=== PATIENT | female | born 1930 | race Caucasian/White ===

== ENCOUNTER 2016-11-21 07:10 | Emergency (ER) | payer OTHER ==
[~2016-11-21] VITALS: Ht 166.4 cm; Wt 77.8 kg
[~2016-11-21 07:10] MED LIST: ALLO100T PO; ASPI1TAB83 PO; CALC-342 PO; CARV25TA2 PO; CHOL100027 PO; FURO-85 PO; LEVO75TA PO; OMEP20CA59 PO; OXYC5TAB PO; POTA20TA16 PO; SIMV20TA2 PO; WARF5TAB90 PO
[2016-11-21 07:18] VITALS: TEMP 36.8; O2SAT 96; Ht 166.4 cm; Wt 77.8 kg
[2016-11-21 07:35] LABS: BASO % 0.9 %; BASO ABS # 0.06 K/uL (0-0.2); COMPLETE YES; EOS % 2.5 %; HEMATOCRIT 36.5 % (37-47); IG% 0.3 %; LYMPH % 18.6 %; LYMPH ABS # 1.26 K/uL (1.2-3.4); MEAN CELL VOLUME 94.6 fL (80-100); MEAN CORPUSCULAR HEMOGLOBIN 31.6 pg (25-34); MEAN CORPUSCULAR HGB CONC 33.4 g/dl (32-36); MEAN PLATELET VOLUME 11.3 fL (7.4-10.4); MONO % 8.7 %; PLATELET COUNT 119 K/uL (130-400); RED BLOOD COUNT 3.86 M/uL (4.2-5.4); WHITE BLOOD COUNT 6.78 K/uL (4.8-10.8)
[2016-11-21] MEDS ORDERED: CARVEDILOL 12.5 MG TAB PO ONE (07:45)
[2016-11-21 07:51] LABS: INR 1.9 (0.9-1.1); PARTIAL THROMBOPLASTIN RATIO 1.2; PROTHROMBIN TIME (PATIENT) 21.2 SECONDS (9.0-12.0)
[2016-11-21 07:54] LABS: BLOOD UREA NITROGEN 26 mg/dl (7-18); BUN/CREATININE RATIO 17.4 (10-20); CALCIUM 8.3 mg/dl (8.5-10.1); CARBON DIOXIDE 28 mmol/L (21-32); CHLORIDE 108 mmol/L (98-107); GLUCOSE 100 mg/dl (70-99); POTASSIUM 4.2 mmol/L (3.5-5.1); SODIUM 140 mmol/L (136-145)
--- NOTE | 2016-11-21 07:56 | DIAGNOSTIC IMAGING REPORT ---
CHEST ONE VIEW PORTABLE CLINICAL HISTORY: Shortness of breath. COMPARISON STUDY: Chest radiograph July 22, 2014. FINDINGS: Lung volumes are normal. There is no pneumothorax or pleural effusion. Moderate cardiomegaly is unchanged. There is no evidence of pulmonary edema. There may be slight asymmetric right upper lung airspace opacity. IMPRESSION: 1. Slight asymmetric right upper lung opacity. This could reflect airspace disease or artifact. Follow-up PA and lateral chest radiographs in one month are recommended. 2. Moderate cardiomegaly. No evidence of pulmonary edema. Electronically signed by: Sam Mendoza M.D. 11/21/2016 7:54 AM Dictated Date/Time: 11/21/2016 7:52 AM
[2016-11-21] MEDS ORDERED: WARF2.5T8 PO (08:07)
[2016-11-21] MEDS ORDERED: SYN88 PO (08:07)
[2016-11-21] MEDS ORDERED: WARF5TAB7 PO (08:07)
[2016-11-21] MEDS ORDERED: FUROSEMIDE 40 MG/4 ML VIAL IV STA (08:42)
--- NOTE | 2016-11-21 08:44 | EMERGENCY ROOM VISIT NOTE ---
History Report prepared by Bebeto: Rosalind Batista Under the Supervision of: Dr. Jerry Baker M.D. First contact with patient: 07:13 Stated Complaint: SOB History of Present Illness The patient is an 86 year old female who presents to the Emergency Room with complaints of worsening shortness of breath starting early this morning. The patient states that she has been short of breath for a few months, but never anything like this. She states that she woke up this morning struggling to breathe. She notes she was lying flat, but always sleeps flat. The patient states that her symptoms are worse with exertion. The patient complains of heart palpitations. The patient denies chest pain, lightheadedness, leg swelling , fevers, loss of consciousness, recent falls, cough, and rhinorrhea. The patient notes that she is on Coumadin and has been taking Amoxicillin for a UTI. She states that she did not take her morning medications. The patient notes a history of atrial fibrillation and congestive heart failure. Source of History: patient Onset: early this morning Position: other (global) Quality: other (global) Timing: worsening Modifying Factors (Worsening): exertion Associated Symptoms: No LOC, No fevers, No cough, No chest pain Note: The patient complains of heart palpitations. The patient denies lightheadedness , leg swelling, recent falls, and rhinorrhea. Review of Systems See HPI for pertinent positives & negatives. A total of 10 systems reviewed and were otherwise negative. Past Medical & Surgical Medical Problems: (1) Afib (2) CHF (congestive heart failure) (3) Choledocholithiasis with acute cholecystitis with obstruction (4) Cholelithiasis Family History Diabetes mellitus Heart disease Hypertension Social History Smoking Status: Never Smoker Drug Use: none Marital Status: single Occupation Status: retired Current/Historical Medications Scheduled Allopurinol (Zyloprim), 100 MG PO BID Aspirin (Aspirin), 81 MG PO DAILY Calcium Carbonate-Vitamin D (Calcium 600+D), 1 TAB PO BID Carvedilol (Coreg), 25 MG PO BID Cholecalciferol (Vitamin D 1000 Unit), 1,000 INTER.UNIT PO DAILY Furosemide (Lasix), 1 TAB PO DAILY Levothyroxine Sodium (Synthroid), 88 MCG PO QAM Omeprazole (Prilosec), 20 MG PO DAILY Potassium Ext Rel (Klor-Con), 20 MEQ PO BID Simvastatin (Zocor), 20 MG PO QPM Warfarin Sod (Jantoven), 5 MG PO 5XWK Warfarin Sod (Jantoven), 2.5 MG PO 2XWK Allergies Coded Allergies: Naproxen (Verified Adverse Reaction, Intermediate, HYPERTENSION, 11/21/16) Ramipril (Verified Adverse Reaction, Intermediate, DIZZY, 11/21/16) Tizanidine (Verified Adverse Reaction, Intermediate, HIP PAIN, 11/21/16) Tramadol (Verified Adverse Reaction, Intermediate, "WOOZY", 11/21/16) Physical Exam Vital Signs Date Time Temp Pulse Resp B/P (MAP) Pulse Ox O2 Delivery O2 Flow Rate FiO2 11/21/16 08:59 66 20 156/88 95 11/21/16 08:32 68 20 147/89 95 Room Air 11/21/16 07:18 36.8 86 24 163/89 96 Room Air 11/21/16 07:18 96 Room Air 11/21/16 07:18 96 Room Air 11/21/16 07:16 79 Physical Exam GENERAL: Patient is well appearing and in no acute distress. HEENT: No acute trauma, normocephalic atraumatic, mucous membranes moist, no nasal congestion, no scleral icterus. NECK: No stridor, no adenopathy, no meningismus, trachea is midline. LUNGS: No dyspnea. Clear to auscultation and equal bilaterally. No wheeze, no rhonchi. HEART: Tachycardic rate and irregular rhythm. No murmurs, rubs, gallops appreciated. ABDOMEN: Soft, nontender, bowel sounds positive, no masses appreciated, no peritonitis. BACK: No midline tenderness, no CVA tenderness EXTREMITIES: Normal motion all extremities, no cyanosis, no edema. NEUROLOGIC: Alert and oriented, no acute motor or sensory deficits, no focal weakness, cranial nerves grossly intact. SKIN: No rash, no jaundice, no diaphoresis. Medical Decision & Procedures ER Provider Diagnostic Interpretation: Radiology results and stated below per my review and radiologist interpretation: CHEST ONE VIEW PORTABLE CLINICAL HISTORY: Shortness of breath. COMPARISON STUDY: Chest radiograph July 22, 2014. FINDINGS: Lung volumes are normal. There is no pneumothorax or pleural effusion. Moderate cardiomegaly is unchanged. There is no evidence of pulmonary edema. There may be slight asymmetric right upper lung airspace opacity. IMPRESSION: 1. Slight asymmetric right upper lung opacity. This could reflect airspace disease or artifact. Follow-up PA and lateral chest radiographs in one month are recommended. 2. Moderate cardiomegaly. No evidence of pulmonary edema. Electronically signed by: Sam Mendoza M.D. 11/21/2016 7:54 AM Dictated Date/Time: 11/21/2016 7:52 AM Laboratory Results 11/21/16 06:36 Red Blood Count 3.86, Mean Corpuscular Volume 94.6, Mean Corpuscular Hemoglobin 31.6, Mean Corpuscular Hemoglobin Concent 33.4, Mean Platelet Volume 11.3, Neutrophils (%) (Auto) 69.0, Lymphocytes (%) (Auto) 18.6, Monocytes (%) (Auto) 8.7, Eosinophils (%) (Auto) 2.5, Basophils (%) (Auto) 0.9, Neutrophils # (Auto) 4.68, Lymphocytes # (Auto) 1.26, Monocytes # (Auto) 0.59, Eosinophils # (Auto) 0.17, Basophils # (Auto) 0.06 11/21/16 06:36 Test 11/21/16 06:36 White Blood Count 6.78 K/uL (4.8-10.8) Red Blood Count 3.86 M/uL (4.2-5.4) Hemoglobin 12.2 g/dL (12.0-16.0) Hematocrit 36.5 % (37-47) Mean Corpuscular Volume 94.6 fL (80-100) Mean Corpuscular Hemoglobin 31.6 pg (25-34) Mean Corpuscular Hemoglobin Concent 33.4 g/dl (32-36) Platelet Count 119 K/uL (130-400) Mean Platelet Volume 11.3 fL (7.4-10.4) Neutrophils (%) (Auto) 69.0 % Lymphocytes (%) (Auto) 18.6 % Monocytes (%) (Auto) 8.7 % Eosinophils (%) (Auto) 2.5 % Basophils (%) (Auto) 0.9 % Neutrophils # (Auto) 4.68 K/uL (1.4-6.5) Lymphocytes # (Auto) 1.26 K/uL (1.2-3.4) Monocytes # (Auto) 0.59 K/uL (0.11-0.59) Eosinophils # (Auto) 0.17 K/uL (0-0.5) Basophils # (Auto) 0.06 K/uL (0-0.2) RDW Standard Deviation 50.7 fL (36.4-46.3) RDW Coefficient of Variation 15.0 % (11.5-14.5) Immature Granulocyte % (Auto) 0.3 % Immature Granulocyte # (Auto) 0.02 K/uL (0.00-0.02) Prothrombin Time 21.2 SECONDS (9.0-12.0) Prothromb Time International Ratio 1.9 (0.9-1.1) Activated Partial Thromboplast Time 30.6 SECONDS (21.0-31.0) Partial Thromboplastin Ratio 1.2 Anion Gap 4.0 mmol/L (3-11) Est Creatinine Clear Calc Drug Dose 29.1 ml/min Estimated GFR () 36.7 Estimated GFR (Non- 31.7 BUN/Creatinine Ratio 17.4 (10-20) Calcium Level 8.3 mg/dl (8.5-10.1) Troponin I < 0.015 ng/ml (0-0.045) Pro-B-Type Natriuretic Peptide 4958 pg/ml (0-1800) Laboratory results as reviewed by me. Medications Administered Medications (Trade) Dose Ordered Sig/Mis Route Start Time Stop Time Status Last Admin Dose Admin Carvedilol (Coreg Tab) 25 mg NOW ONCE PO 11/21/16 07:45 11/21/16 07:46 DC 11/21/16 07:49 25 MG Furosemide (Lasix Inj) 40 mg NOW STAT IV 11/21/16 08:42 11/21/16 08:43 DC 11/21/16 08:48 40 MG ECG Indication: SOB/dyspnea Rate (beats per minute): 80 Rhythm: atrial fibrillation Findings: no acute ischemic change, other (acute TC at 435) Comparison ECG Date: 10/24/2015 Change: no significant change ED Course 0732: The patient was evaluated in room B6. A complete history and physical exam was performed. 0745: Ordered Carvedilol 25 mg PO. 0827: I discussed the patient's case with Dr. Mejia-Cardiology. He agrees with IV Lasix now and having her take 40 PO Lasix tomorrow. He states that Tuesday she should call the clinic to have an appointment. 35: Reevaluated the patient and she is doing well. Her heart rate is in the 70s. Discussed results and discharge instructions: she verbalized understanding and agreement. The patient is ready for discharge. 0842: Ordered Lasix Inj 40 mg IV. Medical Decision Differential: Infectious, Reactive Airway Disease, Pneumonia, Pneumothorax, COPD , CHF, ACS, Pulmonary Embolism, MSK, GI, Dissection, amongst other etiologies entertained. 86 yr old female arrives short of breath mostly on exertion. Mildly tachycardic after exertion which improved and she was given her daily dose b- josy which kept HR under control. She is in CHF though not hypoxic. INR 1.9 and no history of PE, just on this for afib. I do not feel that CT PE indicated. BNP significantly elevated. She is comfortable, just a bit exertional dyspnea. She very much prefers outpatient treatment. Discussed with her instrument technician who notes 40mg IV lasix, PO 40mg daily x 2 days, followed by normal dosing and see Cards this week. Reviewed symptoms requiring return. Already on potassium thus will hold off on adding/increasing. She is stable, comfortable and in no distress sitting bed. No evidence ACS, denies CP, and EKG similar along with Trop negative which after prolonged symptoms not consistent with ACS. Medication Reconcilliation Current Medication List: was personally reviewed by me Blood Pressure Screening Patient's blood pressure: Elevated blood pressure Blood pressure disposition: Elevated BP felt to be situational Will follow up with cardiology this week. Consults Time Called: [phone] Consulting Physician: Dr. Mejia-Cardiology Returned Call: [phone] I discussed the patient's case with Dr. Mejia-Cardiology. He agrees with IV Lasix now and having her take 40 PO Lasix tomorrow. He states that Tuesday she should call the clinic to have an appointment. Impression Primary Impression: Congestive heart failure Scribe Attestation The scribe's documentation has been prepared under my direction and personally reviewed by me in its entirety. I confirm that the note above accurately reflects all work, treatment, procedures, and medical decision making performed by me. Departure Information Dispostion Home / Self-Care Referrals Mariel Gonzales M.D. (PCP) [place], Davey L., D.O. Forms HOME CARE DOCUMENTATION FORM, IMPORTANT VISIT INFORMATION Additional Instructions Increase your Lasix dose to 40 mg daily for Tuesday and Tuesday. Call your Business [employer]st [employer] on Tuesday to make a follow up appointment. Return if worsening breathing, chest pain, passing out, fevers, or other concerns. Rest and avoid excessive fluid intake. We are always here to help if worsening symptoms.
[2016-11-21 08:59] VITALS: BP 156/88; PULSE 66; O2SAT 95
[2016-12-03] MEDS ORDERED: CRG125 PO (14:16)
[2016-12-03] MEDS ORDERED: CEPH500C2 PO (14:16)
== END 2016-11-21 08:59 | disposition home or self-care (01) ==
LOC: EDBD 07:10 → C.EDB 07:12
DX: I50.9 Heart failure, unspecified (principal); Z79.01 Long term (current) use of anticoagulants; N39.0 Urinary tract infection, site not specified; I48.91 Unspecified atrial fibrillation; Z83.3 Family history of diabetes mellitus; Z82.49 Family history of ischemic heart disease and other diseases of the circulatory system; Z79.82 Long term (current) use of aspirin; Z79.899 Other long term (current) drug therapy

== ENCOUNTER 2016-11-30 07:44 | Inpatient (IN) | payer OTHER ==
[~2016-11-30] VITALS: Ht 165.1 cm; Wt 73.7 kg
[~2016-11-30 07:44] MED LIST changes: -LEVO75TA PO; -OXYC5TAB PO; +SYN88 PO; +WARF2.5T8 PO; +WARF5TAB7 PO; -WARF5TAB90 PO
[2016-11-30] MEDS ORDERED: ALBUT/IPRATROP 3MG/0.5MG NEB 3 ML VIAL INH STA (08:21)
--- NOTE | 2016-11-30 08:35 | EMERGENCY ROOM VISIT NOTE ---
History Report prepared by Bebeto: Chelo Benavidez Under the Supervision of: Dr. Kelly Mata M.D. First contact with patient: 07:52 Chief Complaint: RESPIRATORY PROBLEMS Stated Complaint: BREATHING DIFFICULTY Nursing Triage Summary: pt presents to room b12b via als from home. pt reports increased shortness of breath since yesterday. pt has productive cough. pt denies any pain. pt reports she was seen in ed for same last week. History of Present Illness The patient is an 86 year old female who presents to the Emergency Room with complaints of increased shortness of breath that began yesterday. The patient states that yesterday she developed a productive cough and increased shortness of breath. She denies wearing supplemental oxygen at home. The patient states that when she woke this morning she was feeling dizzy and woozy. She states that last week she was evaluated in the emergency department for similar symptoms that she is experiencing today. The patient states that her symptoms feel similar to her congestive heart failure. She denies any chest pain. Source of History: patient Onset: yesterday Position: other (global) Quality: other (shortness of breath) Timing: other (increased) Associated Symptoms: + cough (productive), No chest pain Note: Associated Symptoms: dizzy and woozy Review of Systems See HPI for pertinent positives & negatives. A total of 10 systems reviewed and were otherwise negative. Past Medical & Surgical Medical Problems: (1) Afib (2) CKD (chronic kidney disease), stage III (3) Diastolic CHF, chronic (4) HTN (hypertension) (5) Lumbar disc disease (6) Osteoarthritis Family History Diabetes mellitus Heart disease Hypertension Social History Smoking Status: Never Smoker Drug Use: none Marital Status: single Housing Status: lives with family Occupation Status: retired Current/Historical Medications Scheduled Allopurinol (Zyloprim), 100 MG PO BID Aspirin (Aspirin), 81 MG PO DAILY Calcium Carbonate-Vitamin D (Calcium 600+D), 1 TAB PO BID Carvedilol (Coreg), 25 MG PO BID Cholecalciferol (Vitamin D 1000 Unit), 1,000 INTER.UNIT PO DAILY Furosemide (Lasix), 1 TAB PO DAILY Isosorbide Mononitrate (Isosorbide Mononitrate ER), 30 MG PO DAILY Levothyroxine Sodium (Synthroid), 88 MCG PO QAM Omeprazole (Prilosec), 20 MG PO DAILY Potassium Ext Rel (Klor-Con), 20 MEQ PO BID Simvastatin (Zocor), 20 MG PO QPM Warfarin Sod (Jantoven), 0 PO UD Allergies Coded Allergies: Naproxen (Verified Adverse Reaction, Intermediate, HYPERTENSION, 11/30/16) Ramipril (Verified Adverse Reaction, Intermediate, DIZZY, 11/30/16) Tizanidine (Verified Adverse Reaction, Intermediate, HIP PAIN, 11/30/16) Tramadol (Verified Adverse Reaction, Intermediate, "WOOZY", 11/30/16) Physical Exam Vital Signs Date Time Temp Pulse Resp B/P (MAP) Pulse Ox O2 Delivery O2 Flow Rate FiO2 11/30/16 11:30 98 22 139/76 96 Room Air 11/30/16 09:39 71 22 131/97 96 Nasal Cannula 2.0 11/30/16 08:10 93 Nasal Cannula 2.0 11/30/16 08:10 81 20 139/72 87 Room Air 11/30/16 08:08 74 11/30/16 08:05 91 Room Air 11/30/16 07:49 37.5 95 20 162/75 92 Room Air 11/30/16 07:49 92 Room Air Physical Exam Vital signs reviewed. General: Elderly. Well-appearing female, in no significant distress. On nasal cannula oxygen. HEENT: No scleral icterus, PERRLA, neck supple. Atraumatic. Cardiovascular: Regular rate and rhythm, no extra sounds. Pulmonary: Coarse breath sounds bilaterally, normal work of breathing. Abdomen: Soft, nontender, nondistended, positive bowel sounds. Musculoskeletal: Atraumatic, no peripheral edema. Neurologic: Patient awake alert and oriented x 3 Skin: Warm, dry, no rash Medical Decision & Procedures ER Provider Diagnostic Interpretation: X-ray results as stated below per interpretation by me and the radiologist: CHEST ONE VIEW PORTABLE CLINICAL HISTORY: SOB, fever, cough COMPARISON STUDY: 11/21/2016 FINDINGS: Fixed hernia. Lungs now considered clear. Diaphragms smooth. IMPRESSION: Fixed hiatal hernia. Mild cardia megaly. Otherwise negative study The above report was generated using voice recognition software. It may contain grammatical, syntax or spelling errors. Electronically signed by: Alen Mar M.D. 11/30/2016 8:52 AM Dictated Date/Time: 11/30/2016 8:51 AM Laboratory Results Test 11/30/16 07:57 11/30/16 08:34 11/30/16 08:40 Urine Color YELLOW Urine Appearance CLEAR (CLEAR) Urine pH 5.5 (4.5-7.5) Urine Specific [place] 1.012 (1.000-1.030) Urine Protein NEG (NEG) Urine Glucose (UA) NEG (NEG) Urine Ketones NEG (NEG) Urine Occult Blood TRACE (NEG) Urine Nitrite NEG (NEG) Urine Bilirubin NEG (NEG) Urine Urobilinogen NEG (NEG) Urine Leukocyte Esterase NEG (NEG) Urine WBC (Auto) 1-5 /hpf (0-5) Urine RBC (Auto) 0-4 /hpf (0-4) Urine Hyaline Casts (Auto) 0 /lpf (0-5) Urine Epithelial Cells (Auto) 5-10 /lpf (0-5) Urine Bacteria (Auto) 4+ (NEG) Immature Granulocyte % (Auto) 0.3 % White Blood Count 9.56 K/uL (4.8-10.8) Red Blood Count 3.78 M/uL (4.2-5.4) Hemoglobin 11.7 g/dL (12.0-16.0) Hematocrit 35.8 % (37-47) Mean Corpuscular Volume 94.7 fL (80-100) Mean Corpuscular Hemoglobin 31.0 pg (25-34) Mean Corpuscular Hemoglobin Concent 32.7 g/dl (32-36) Platelet Count 121 K/uL (130-400) Mean Platelet Volume 10.9 fL (7.4-10.4) Neutrophils (%) (Auto) 84.2 % Lymphocytes (%) (Auto) 6.2 % Monocytes (%) (Auto) 8.5 % Eosinophils (%) (Auto) 0.5 % Basophils (%) (Auto) 0.3 % Neutrophils # (Auto) 8.05 K/uL (1.4-6.5) Lymphocytes # (Auto) 0.59 K/uL (1.2-3.4) Monocytes # (Auto) 0.81 K/uL (0.11-0.59) Eosinophils # (Auto) 0.05 K/uL (0-0.5) Basophils # (Auto) 0.03 K/uL (0-0.2) Immature Granulocyte # (Auto) 0.03 K/uL (0.00-0.02) Activated Partial Thromboplast Time 31.4 SECONDS (21.0-31.0) Partial Thromboplastin Ratio 1.2 Total Bilirubin 1.9 mg/dl (0.2-1) Direct Bilirubin 0.5 mg/dl (0-0.2) Aspartate Amino Transf (AST/SGOT) 31 U/L (15-37) Alanine Aminotransferase (ALT/SGPT) 23 U/L (12-78) Alkaline Phosphatase 67 U/L (45-117) Total Creatine Kinase 129 U/L (26-192) Creatine Kinase MB 2.2 ng/ml (0.5-3.6) Creatine Kinase MB Ratio 1.7 (0-3.0) Pro-B-Type Natriuretic Peptide 8851 pg/ml (0-1800) Total Protein 6.7 gm/dl (6.4-8.2) Albumin 3.2 gm/dl (3.4-5.0) Bedside Troponin I < 0.030 ng/ml (0-0.045) Laboratory results per my review. Medications Administered Medications (Trade) Dose Ordered Sig/Mis Route Start Time Stop Time Status Last Admin Dose Admin Albuterol/ Ipratropium (Duoneb) 3 ml NOW STAT INH 11/30/16 08:21 11/30/16 08:22 DC 11/30/16 08:28 3 ML Furosemide (Lasix Inj) 40 mg NOW STAT IV 11/30/16 09:27 11/30/16 09:28 DC 11/30/16 09:40 40 MG Ceftriaxone Sodium (Rocephin Inj) 1 gm NOW STAT IV 11/30/16 09:58 11/30/16 10:00 DC 11/30/16 10:18 1 GM ECG Indication: SOB/dyspnea Rate (beats per minute): 93 Rhythm: atrial fibrillation Findings: no acute ischemic change, no ectopy, other (poor quality baseline for interpretation) ED Course 0817: Past medical records reviewed. The patient was evaluated in room B12B. A complete history and physical examination was performed. 0821: Ordered DuoNeb 3 ml INH. 0927: Ordered Lasix Inj 40 mg IV. 0958: Ordered Rocephin Inj 1 gm IV. 1003: I reevaluated the patient and she is resting. I discussed the exam findings with her and her family and I discussed the treatment plan. They verbalized complete understanding and agreement. The patient will be evaluated for further treatment. 7105: I discussed the patients case with Sadiq Bautista PA-C. She is going to evaluate the patient for further treatment. Medical Decision Differential diagnosis: Etiologies such as infections, reactive airway disease, pneumonia, pneumothorax , COPD, CHF, cardiac ischemia, pulmonary embolism, musculoskeletal, gastrointestinal, as well as others were entertained. This pt was evaluated and appeared to be in no distress. IV access was obtained and lab work was drawn. Pt was placed on n/c O2. She is hypoxic on r/ a. CXR is relatively clear, BNP is elevated to 8851. Pt had a temp of 37.5 on arrival, BC were drawn and pt was given ceftriaxone 1gm for possibility of PNA. Lab work otherwise is unrevealing, neg cardiac enzymes. EKG is non ischemic, rate controlled a fib. Pt was diuresing in ED. Case was d/w the hospitalist service for further management. Medication Reconcilliation Current Medication List: was personally reviewed by me Blood Pressure Screening Patient's blood pressure: Elevated blood pressure Blood pressure disposition: Referred to PCP (referred to hospitalist) Consults Time Called: [phone] Consulting Physician: Sadiq Bautista PA-C Returned Call: [phone] I discussed the patients case with Sadiq Bautista PA-C. She is going to evaluate the patient for further treatment. Impression Primary Impression: Congestive heart failure Scribe Attestation The scribe's documentation has been prepared under my direction and personally reviewed by me in its entirety. I confirm that the note above accurately reflects all work, treatment, procedures, and medical decision making performed by me. Departure Information Dispostion Being Evaluated By Hospitalist Referrals Mariel Gonzales M.D. (PCP)
[2016-11-30 08:40] LABS: URINE APPEARANCE CLEAR (CLEAR); URINE BILIRUBIN NEG (NEG); URINE COLOR YELLOW; URINE NITRITE NEG (NEG); URINE PH 5.5 (4.5-7.5); URINE SPECIFIC GRAVITY 1.012 (1.000-1.030); UROBILINOGEN NEG (NEG); ZZUR CULT IF INDIC CLEAN CATCH YES
[2016-11-30 08:41] LABS: MANUAL MICROSCOPIC REQUIRED? NO; REVIEW REQ? NO
[2016-11-30 08:51] LABS: BASO % 0.3 %; BASO ABS # 0.03 K/uL (0-0.2); COMPLETE YES; EOS % 0.5 %; HEMATOCRIT 35.8 % (37-47); IG% 0.3 %; LYMPH % 6.2 %; LYMPH ABS # 0.59 K/uL (1.2-3.4); MEAN CELL VOLUME 94.7 fL (80-100); MEAN CORPUSCULAR HGB CONC 32.7 g/dl (32-36); MEAN PLATELET VOLUME 10.9 fL (7.4-10.4); MONO % 8.5 %; NEUT % 84.2 %; PLATELET COUNT 121 K/uL (130-400); RED BLOOD COUNT 3.78 M/uL (4.2-5.4); WHITE BLOOD COUNT 9.56 K/uL (4.8-10.8)
--- NOTE | 2016-11-30 08:53 | DIAGNOSTIC IMAGING REPORT ---
CHEST ONE VIEW PORTABLE CLINICAL HISTORY: SOB, fever, cough COMPARISON STUDY: 11/21/2016 FINDINGS: Fixed hernia. Lungs now considered clear. Diaphragms smooth. IMPRESSION: Fixed hiatal hernia. Mild cardia megaly. Otherwise negative study The above report was generated using voice recognition software. It may contain grammatical, syntax or spelling errors. Electronically signed by: Alen Mar M.D. 11/30/2016 8:52 AM Dictated Date/Time: 11/30/2016 8:51 AM
[2016-11-30 09:01] LABS: INR 2.2 (0.9-1.1); PARTIAL THROMBOPLASTIN RATIO 1.2; PROTHROMBIN TIME (PATIENT) 24.4 SECONDS (9.0-12.0)
[2016-11-30 09:09] LABS: BUN/CREATININE RATIO 20.3 (10-20); CALCIUM 8.5 mg/dl (8.5-10.1); CREATININE 1.3 mg/dl (0.60-1.20); MAGNESIUM 1.8 mg/dl (1.8-2.4); POTASSIUM 3.7 mmol/L (3.5-5.1)
[2016-11-30 09:14] LABS: CKMB/CK RATIO 1.7 (0-3.0)
[2016-11-30] MEDS ORDERED: FUROSEMIDE 40 MG/4 ML VIAL IV STA (09:27)
[2016-11-30] MEDS ORDERED: CEFTRIAXONE SOD INJ 1 GM ADDVIAL IV STA (09:58)
[2016-11-30] MEDS ORDERED: IV FLUIDS COMPLETED PRN (12:15)
[2016-11-30 12:22] VITALS: Ht 165.1 cm; Wt 73.7 kg
[2016-11-30] MEDS ORDERED: ACETAMINOPHEN 325 MG TAB PO PRN (12:30)
[2016-11-30] MEDS ORDERED: ONDANSETRON INJ 2 MG/ML 2 ML VIAL IV PRN (12:30)
[2016-11-30] MEDS ORDERED: WARFARIN SOD 5 MG TAB PO SCH (12:45)
[2016-11-30] MEDS ORDERED: WARFARIN SOD 2.5 MG TAB PO SCH (12:45)
--- NOTE | 2016-11-30 12:48 | History and Physical ---
History & Physical Date & Time of Service: Nov 30, 2016 at 12:36 Chief Complaint: Breathing Difficulty Primary Care Physician: Marika Thomas History of Present Illness Source: patient This is an 86yo F with a PMH of diastolic CHF, Atrial fibrillation (on coumadin) , HTN and CKD stage III who presents with worsening shortness of breath since yesterday. Patient was recently seen at [facility] ED on 11/21/16 for shortness of breath and was found to be in decompensated CHF. Was given IV Lasix and seen by cardio, who suggested increasing home dose of Lasix to 40mg x 2 days before returning to normal dose of 20mg. Patient states that SOB improved after making these adjustments but she did not return to baseline. She presents again today with SOB, experiencing dyspnea with any type of exertion, even using the restroom. At baseline, patient can ambulate around her home comfortably without SOB. Also states that she developed rhinorrhea and a cough with productive clear /white sputum yesterday. Does not require home O2. Endorses orthopnea but denies any fever, chills, nasal congestion, sore throat, chest pain, palpitations, abdominal pain, LE swelling or weight gain. Has a follow-up appointment with cardio (GIOVANNI Hoang) on 12/02/16. ED course included a dose of IV Lasix and ceftriaxone (for temp of 37.5 and cough). Past Medical/Surgical History Medical Problems: (1) Afib Status: Chronic (2) CKD (chronic kidney disease), stage III Status: Chronic (3) Diastolic CHF, chronic Status: Chronic (4) HTN (hypertension) Status: Chronic (5) Lumbar disc disease Status: Chronic (6) Osteoarthritis Status: Chronic Family History Diabetes mellitus Heart disease Hypertension Social History Smoking Status: Never Smoker Drug Use: none Marital Status: single Housing status: lives alone Occupational Status: retired Multi-Drug Resistant Organisms History of MDRO: No Allergies Coded Allergies: Naproxen (Verified Adverse Reaction, Intermediate, HYPERTENSION, 11/30/16) Ramipril (Verified Adverse Reaction, Intermediate, DIZZY, 11/30/16) Tizanidine (Verified Adverse Reaction, Intermediate, HIP PAIN, 11/30/16) Tramadol (Verified Adverse Reaction, Intermediate, "WOOZY", 11/30/16) Home Medications Scheduled Allopurinol (Zyloprim), 100 MG PO BID Aspirin (Aspirin), 81 MG PO DAILY Calcium Carbonate-Vitamin D (Calcium 600+D), 1 TAB PO BID Carvedilol (Coreg), 25 MG PO BID Cholecalciferol (Vitamin D 1000 Unit), 1,000 INTER.UNIT PO DAILY Furosemide (Lasix), 1 TAB PO DAILY Levothyroxine Sodium (Synthroid), 88 MCG PO QAM Omeprazole (Prilosec), 20 MG PO DAILY Potassium Ext Rel (Klor-Con), 20 MEQ PO BID Simvastatin (Zocor), 20 MG PO QPM Warfarin Sod (Jantoven), 5 MG PO 5XWK Warfarin Sod (Jantoven), 2.5 MG PO 2XWK Review of Systems Ten systems reviewed and negative except as noted in the HPI. Physical Exam Vital Signs Date Time Temp Pulse Resp B/P (MAP) Pulse Ox O2 Delivery O2 Flow Rate FiO2 11/30/16 12:22 Nasal Cannula 2.0 11/30/16 11:30 98 22 139/76 96 Room Air 11/30/16 09:39 71 22 131/97 96 Nasal Cannula 2.0 11/30/16 08:10 93 Nasal Cannula 2.0 11/30/16 08:10 81 20 139/72 87 Room Air 11/30/16 08:08 74 11/30/16 08:05 91 Room Air 11/30/16 07:49 37.5 95 20 162/75 92 Room Air 11/30/16 07:49 92 Room Air General Appearance: WD/WN, no apparent distress (Comfortable on exam with NC oxygen in place. ) Head: normocephalic, atraumatic Eyes: normal inspection, PERRL, sclerae normal ENT: hearing grossly normal Neck: supple, no adenopathy, no JVD, trachea midline Respiratory/Chest: chest non-tender, no respiratory distress, no accessory muscle use, + rhonchi (Cleared after coughing ), + wheezing (Mild inspiratory and expiratory wheezes noted throughout lung eli.) Cardiovascular: normal peripheral pulses, + irregularly irregular Abdomen/GI: normal bowel sounds, non tender, soft, no organomegaly Back: normal inspection Extremities/Musculoskelatal: normal inspection, no calf tenderness, normal capillary refill, no pedal edema Neurologic/Psych: no motor/sensory deficits, alert, normal mood/affect, oriented x 3 Skin: normal color, warm/dry, no rash Diagnostics Laboratory Results Results Past 24 Hours Test 11/30/16 07:57 11/30/16 08:34 11/30/16 08:40 Range/Units Urine Color YELLOW Urine Appearance CLEAR CLEAR Urine pH 5.5 4.5-7.5 Urine Specific [place] 1.012 1.000-1.030 Urine Protein NEG NEG Urine Glucose (UA) NEG NEG Urine Ketones NEG NEG Urine Occult Blood TRACE NEG Urine Nitrite NEG NEG Urine Bilirubin NEG NEG Urine Urobilinogen NEG NEG Urine Leukocyte Esterase NEG NEG Urine WBC (Auto) 1-5 0-5 /hpf Urine RBC (Auto) 0-4 0-4 /hpf Urine Hyaline Casts (Auto) 0 0-5 /lpf Urine Epithelial Cells (Auto) 5-10 0-5 /lpf Urine Bacteria (Auto) 4+ NEG White Blood Count 9.56 4.8-10.8 K/uL Red Blood Count 3.78 4.2-5.4 M/uL Hemoglobin 11.7 12.0-16.0 g/dL Hematocrit 35.8 37-47 % Mean Corpuscular Volume 94.7 80-100 fL Mean Corpuscular Hemoglobin 31.0 25-34 pg Mean Corpuscular Hemoglobin Concent 32.7 32-36 g/dl Platelet Count 121 130-400 K/uL Mean Platelet Volume 10.9 7.4-10.4 fL Neutrophils (%) (Auto) 84.2 % Lymphocytes (%) (Auto) 6.2 % Monocytes (%) (Auto) 8.5 % Eosinophils (%) (Auto) 0.5 % Basophils (%) (Auto) 0.3 % Neutrophils # (Auto) 8.05 1.4-6.5 K/uL Lymphocytes # (Auto) 0.59 1.2-3.4 K/uL Monocytes # (Auto) 0.81 0.11-0.59 K/uL Eosinophils # (Auto) 0.05 0-0.5 K/uL Basophils # (Auto) 0.03 0-0.2 K/uL RDW Standard Deviation 51.9 36.4-46.3 fL RDW Coefficient of Variation 15.1 11.5-14.5 % Immature Granulocyte % (Auto) 0.3 % Immature Granulocyte # (Auto) 0.03 0.00-0.02 K/uL Prothrombin Time 24.4 9.0-12.0 SECONDS Prothromb Time International Ratio 2.2 0.9-1.1 Activated Partial Thromboplast Time 31.4 21.0-31.0 SECONDS Partial Thromboplastin Ratio 1.2 Sodium Level 140 136-145 mmol/L Potassium Level 3.7 3.5-5.1 mmol/L Chloride Level 107 98-107 mmol/L Carbon Dioxide Level 26 21-32 mmol/L Anion Gap 7.0 3-11 mmol/L Blood Urea Nitrogen 26 7-18 mg/dl Creatinine 1.30 0.60-1.20 mg/dl Est Creatinine Clear Calc Drug Dose 34.2 ml/min Estimated GFR () 43.6 Estimated GFR (Non- 37.6 BUN/Creatinine Ratio 20.3 10-20 Random Glucose 121 70-99 mg/dl Calcium Level 8.5 8.5-10.1 mg/dl Magnesium Level 1.8 1.8-2.4 mg/dl Total Bilirubin 1.9 0.2-1 mg/dl Direct Bilirubin 0.5 0-0.2 mg/dl Aspartate Amino Transf (AST/SGOT) 31 15-37 U/L Alanine Aminotransferase (ALT/SGPT) 23 12-78 U/L Alkaline Phosphatase 67 45-117 U/L Total Creatine Kinase 129 26-192 U/L Creatine Kinase MB 2.2 0.5-3.6 ng/ml Creatine Kinase MB Ratio 1.7 0-3.0 Pro-B-Type Natriuretic Peptide 8851 0-1800 pg/ml Total Protein 6.7 6.4-8.2 gm/dl Albumin 3.2 3.4-5.0 gm/dl Bedside Troponin I < 0.030 0-0.045 ng/ml Microbiology Results 11/30/16 Blood Culture, Received Pending 11/30/16 Blood Culture, Received Pending 11/30/16 Urine Culture, Received Pending Diagnostic Radiology CXR: IMPRESSION: Fixed hiatal hernia. Mild cardia megaly. Otherwise negative study EKG Atrial fibrillation Nonspecific ST and T wave abnormality No change from prior EKG Impression Assessment and Plan This is an 86yo F with a PMH of diastolic CHF, Atrial fibrillation (on coumadin) , HTN and CKD stage III who presents with worsening shortness of breath since yesterday. Shortness of breath: -Most likely a mildly decompensated CHF -CXR with mild cardiomegaly but no pulm congestion -Considered PNA but no opacities on CXR, no leukocytosis, afebrile -Received a dose of ceftriaxone in ER -No indication to continue antibiotic on the floor -Recent rhinorrhea and cough may reflect a URI; monitor -O2 saturation in high 90s on 2L NC -Monitor vitals, CBC in AM Acute on chronic diastolic CHF: -SOB increased from baseline -Euvolemic to slightly overloaded on exam -Crackles bilaterally on exam initially; improved after IV Lasix -Weight increased ~5lbs since 11/21/16 visit to ER -BNP elevated to 8851 -Given 40mg IV Lasix in ER. Will give another dose this afternoon -Low Na diet, daily weights -Continue home meds -Recent echo in 04/06 with EF: 59. Mild concentric LVH -Will consider consulting cardio if no improvement -Has cardio clinic appt on 12/02 with GIOVANNI Hoang Atrial fibrillation (on coumadin): -Rate-controlled, HR 70s-90s -Asymptomatic although irregular rhythm on exam -Continue home dose warfarin -INR therapeutic at 2.2 -Monitor on tele HTN: -Stable -Continue home meds CKD Stage III: -Cr of 1.3, GFR 37.6 -Currently at baseline or slightly better -Avoid nephrotoxic agents when able -Monitor BMP DVT Ppx: On warfarin Code status: FULL PCP: William Dispo: Discharge planning ordered due to patient >80yo and lives alone Level of Care Telemetry Advanced Directives Existing Living Will: No Existing Power of Food Service Specialist: Yes Resuscitation Status FULL RESUSCITATION VTE Prophylaxis VTE Risk Assessment Done? Y/N: Yes Risk Level: High Given or contraindicated: Warfarin (Coumadin) Social Service Consult >80 yr.& Lives Alone Note ATTENDING ADDENDUM Record reviewed. Patient interviewed and examined in ED ~ 13:10. Care coordinated with Sweetie Beth PA-C. Please refer to her documentation for patient's history. Briefly, 86 YO female w history of diastolic CHF, chronic AF, and other problems as noted. Presented to ED with a few days of worsening dyspnea on exertion and 2-pillow orthopnea. Wt up 1-2 lbs. Has cough productive of clear sputum; no fever, chills. EXAM: General- no acute distress VS- as noted HEENT- anicteric Neck- + JVD Lungs- bibasilar rales, mild wheezing Heart- irregular, I/ systolic murmur at base, no gallop appreciated Abdomen- + BS, soft, nontender; no palpable masses or hepatosplenomegaly Extremities- trace pretibial edema, no calf tenderness Neuro- alert, oriented. DATA: BUN 26, creatinine 1.3, Total bili 1.9, direct bili 0.5, AST, ALT, alk phos normal. BNP 8851. Trop < 0.030. INR 2.2. Other lab studies as noted. EKG performed at 07:54 reviewed and demonstrated AF at 90 / minute, baseline artifact, ST depression I, II, aVL, aVF, ? V6. Chest x-ray reviewed- cardiomegaly; no pulmonary edema, infiltrates, effusions. ASSESSMENT AND PLAN: History of diastolic CHF. Worsening dyspnea over past few days. O2 sats as low as 87% on RA in ED. No overt pulmonary edema radiographically, but exam and BNP consistent with CHF. Probable acute on chronic left ventricular diastolic heart failure. Echo 04/09/16 demonstrated normal LV systolic function, grade II diastolic dysfunction, mild MR, mild TR. No need to repeat echo at this time. Received IV furosemide in ED. Will repeat dose this afternoon, then await morning reassessment and labs. Need to watch renal function closely due to CKD. Coordinate care with Cardiology. Doubt PE- patient chronically anticoagulated with therapeutic INR. Has mild cough. No infiltrates on CXR. Suspect viral bronchitis. No indication for antibiotics at this time. Reassess as needed if cough persists or worsens. Chronic AF, rate controlled. Continue carvedilol and warfarin. Please refer to TAWANNA Beth's documentation for discussion of other issues. Fede Dunn MD .
[2016-11-30] MEDS ORDERED: ISOS-11 PO (14:16)
[2016-11-30 14:42] VITALS: BP 128/84; PULSE 78; TEMP 36.4; O2SAT 95
[2016-11-30] MEDS ORDERED: FUROSEMIDE INJ 40 MG in SYRINGE 0 ML IV ONE (15:00)
[2016-11-30] MEDS: WARFARIN SOD 5 MG TAB PO SCH (15:28)
[2016-11-30 16:06] VITALS: O2SAT 95
[2016-11-30 19:33] VITALS: BP 134/81; PULSE 82; TEMP 36.7; O2SAT 97
[2016-11-30 20:00] VITALS: O2SAT 97
[2016-11-30] MEDS: CARVEDILOL 25 MG TAB PO SCH (20:30)
[2016-11-30] MEDS: CALCIUM 600MG + VIT D 400 IU TAB PO SCH (20:30)
[2016-11-30] MEDS: ALLOPURINOL 100 MG TAB PO SCH (20:30)
[2016-11-30] MEDS: POTASSIUM CHLORIDE 20 MEQ TABCR PO SCH (20:30)
[2016-11-30] MEDS: SIMVASTATIN 20 MG TAB PO SCH (20:30)
[2016-11-30 23:13] VITALS: BP 132/77; PULSE 69; TEMP 36.9; O2SAT 96
[2016-12-01] VITALS (11 sets, daily range): BP systolic 117–155; BP diastolic 70–93; PULSE 62–94; TEMP 36.3–36.7; O2SAT 88–97
[2016-12-01] MEDS: LEVOTHYROXINE 88 MCG TAB PO SCH (06:12)
[2016-12-01 06:38] LABS: HEMATOCRIT 39.3 % (37-47); MEAN CELL VOLUME 97.3 fL (80-100); MEAN CORPUSCULAR HEMOGLOBIN 30.9 pg (25-34); MEAN CORPUSCULAR HGB CONC 31.8 g/dl (32-36); MEAN PLATELET VOLUME 10.7 fL (7.4-10.4); PLATELET COUNT 123 K/uL (130-400); RED BLOOD COUNT 4.04 M/uL (4.2-5.4); WHITE BLOOD COUNT 7.51 K/uL (4.8-10.8)
[2016-12-01 06:45] LABS: INR 2.3 (0.9-1.1); PROTHROMBIN TIME (PATIENT) 25.8 SECONDS (9.0-12.0)
[2016-12-01 07:08] LABS: BUN/CREATININE RATIO 16.8 (10-20); CREATININE 1.3 mg/dl (0.60-1.20); POTASSIUM 3.3 mmol/L (3.5-5.1)
[2016-12-01] MEDS: ALLOPURINOL 100 MG TAB PO SCH ×2 (08:14→20:40)
[2016-12-01] MEDS: ISOSORBIDE MONONITRATE 30 MG TABCR PO SCH (08:14)
[2016-12-01] MEDS: CARVEDILOL 25 MG TAB PO SCH ×2 (08:14→20:39)
[2016-12-01] MEDS: PANTOprazole SOD 40 MG TAB PO SCH (08:14)
[2016-12-01] MEDS: ASPIRIN 81 MG ECTAB PO SCH (08:14)
[2016-12-01] MEDS: CHOLECALCIFEROL 1000 INTER.UNIT TAB PO SCH (08:14)
[2016-12-01] MEDS: POTASSIUM CHLORIDE 20 MEQ TABCR PO SCH ×2 (08:14→20:39)
[2016-12-01] MEDS: CALCIUM 600MG + VIT D 400 IU TAB PO SCH ×2 (08:14→20:39)
[2016-12-01] MEDS ORDERED: POTASSIUM CHLORIDE 10 MEQ TABCR PO ONE (10:30)
[2016-12-01] MEDS: CEFTRIAXONE SOD INJ 1,000 MG in DEXTROSE 5% 50ML 50 ML IV SCH (11:02)
[2016-12-01] MEDS: WARFARIN SOD 5 MG TAB PO SCH (15:26)
--- NOTE | 2016-12-01 15:52 | Progress Note ---
Internal Med Progress Note Date of Service: Dec 01, 2016. Provider Documentation: SUBJECTIVE: The patient was seen and examined Admitted with SOB secondary to CHF Feels a little better OBJECTIVE: Vital Signs-as noted below Exam: General-Moderate distress at rest Eyes-normal ENT-Normal Neck-Suppple Lungs-Decreased breath sound bilaterally and crackles at the bases Heart-Regular Abdomen-Benign,no masses,bowel sound present Extremities-1 + edema bilaterally Neuro-AAOx3 Lab data as noted below. ASSESSMENT & PLAN: This is an 86yo F with a PMH of diastolic CHF, Atrial fibrillation (on coumadin) , HTN and CKD stage III who presents with worsening shortness of breath since yesterday. Acute Decompensated Diastolic CHF Shortness of breath -Weight increased ~5lbs since 11/21/16 visit to ER -BNP elevated to 8851 -CXR with mild cardiomegaly but no pulm congestion -Received a dose of ceftriaxone in ER for possible Pneumonia -O2 saturation in high 90s on 2L NC -Monitor vitals, CBC in AM -received Lasix in ER and will continue -Will consider consulting cardio if no improvement -Has cardio clinic appt on 12/02 with GIOVANNI Hoang -Cancelled UTI Continue Ceftriaxone Await C/S Atrial fibrillation (on coumadin): -Rate-controlled, HR 70s-90s -Asymptomatic although irregular rhythm on exam -Continue home dose warfarin -INR therapeutic at 2.2 -Monitor on tele HTN: -Stable -Continue home meds CKD Stage III: -Cr of 1.3, GFR 37.6 -Currently at baseline or slightly better -Avoid nephrotoxic agents when able -Monitor BMP DVT Ppx: On warfarin Code status: FULL PCP: William Dispo: Discharge planning ordered due to patient >80yo and lives alone Vital Signs: Date Time Temp Pulse Resp B/P (MAP) Pulse Ox O2 Delivery O2 Flow Rate FiO2 12/01/16 15:14 36.6 92 16 117/71 (86) 93 Nasal Cannula 1.0 12/01/16 12:00 Nasal Cannula 2.0 12/01/16 11:30 36.6 85 18 123/70 (87) 95 Nasal Cannula 2.0 12/01/16 08:00 Nasal Cannula 3.0 12/01/16 07:36 36.7 62 18 143/80 (101) 94 Room Air 12/01/16 04:01 36.6 81 18 140/81 (100) 95 3.0 12/01/16 04:00 97 Nasal Cannula 3.0 12/01/16 00:00 97 Nasal Cannula 3.0 11/30/16 23:13 36.9 69 22 132/77 (95) 96 Nasal Cannula 3.0 11/30/16 20:00 97 Nasal Cannula 3.0 11/30/16 19:33 36.7 82 20 134/81 (98) 97 Nasal Cannula 3.0 11/30/16 16:06 95 Nasal Cannula 2.0 Lab Results: Results Past 24 Hours Test 12/01/16 06:16 Range/Units White Blood Count 7.51 4.8-10.8 K/uL Red Blood Count 4.04 4.2-5.4 M/uL Hemoglobin 12.5 12.0-16.0 g/dL Hematocrit 39.3 37-47 % Mean Corpuscular Volume 97.3 80-100 fL Mean Corpuscular Hemoglobin 30.9 25-34 pg Mean Corpuscular Hemoglobin Concent 31.8 32-36 g/dl RDW Standard Deviation 52.9 36.4-46.3 fL RDW Coefficient of Variation 15.0 11.5-14.5 % Platelet Count 123 130-400 K/uL Mean Platelet Volume 10.7 7.4-10.4 fL Prothrombin Time 25.8 9.0-12.0 SECONDS Prothromb Time International Ratio 2.3 0.9-1.1 Sodium Level 141 136-145 mmol/L Potassium Level 3.3 3.5-5.1 mmol/L Chloride Level 101 98-107 mmol/L Carbon Dioxide Level 35 21-32 mmol/L Anion Gap 5.0 3-11 mmol/L Blood Urea Nitrogen 22 7-18 mg/dl Creatinine 1.30 0.60-1.20 mg/dl Est Creatinine Clear Calc Drug Dose 32.3 ml/min Estimated GFR () 43.6 Estimated GFR (Non- 37.6 BUN/Creatinine Ratio 16.8 10-20 Random Glucose 103 70-99 mg/dl Calcium Level 9.0 8.5-10.1 mg/dl
[2016-12-01] MEDS ORDERED: LEVALBUTEROL/IPRATROPIUM NEB INH STA (19:46)
[2016-12-01] MEDS ORDERED: LEVALBUTEROL 1.25MG/0.5ML NEB INH STA (19:50)
[2016-12-01] MEDS ORDERED: IPRATROPIUM BROMIDE NEB SOLN 0.02% 2.5 ML VIAL INH STA (19:50)
[2016-12-01] MEDS ORDERED: LEVALBUTEROL/IPRATROPIUM NEB INH PRN (20:00)
[2016-12-01] MEDS ORDERED: IPRATROPIUM BROMIDE NEB SOLN 0.02% 2.5 ML VIAL INH PRN (20:00)
[2016-12-01] MEDS ORDERED: GUAIFENESIN SUGAR FREE 100 MG/5 ML UDC PO PRN (20:00)
[2016-12-01] MEDS ORDERED: COUGH DROP (SUGAR FREE) LOZ 24 LOZ/1 BOX PO PRN (20:00)
[2016-12-01] MEDS ORDERED: LEVALBUTEROL 1.25MG/0.5ML NEB INH PRN (20:00)
--- NOTE | 2016-12-01 20:15 | DIAGNOSTIC IMAGING REPORT ---
CHEST ONE VIEW PORTABLE CLINICAL HISTORY: coarse Bs dyspnea COMPARISON STUDY: 11/30/2016 FINDINGS: Moderate stable cardiomegaly. Lungs are clear. Diaphragms are smooth. Small fixed hiatal hernia IMPRESSION: Moderate stable cardiomegaly. Otherwise negative study small fixed hiatal hernia The above report was generated using voice recognition software. It may contain grammatical, syntax or spelling errors. Electronically signed by: Alen Mar M.D. 12/01/2016 8:14 PM Dictated Date/Time: 12/01/2016 8:13 PM
[2016-12-01 20:24] LABS: ARTERIAL BLD GAS O2 SATURATION 96.8 % (90-95); ARTERIAL BLOOD GAS BASE EXCESS 5.5 mEq/L (-9-1.8); ARTERIAL BLOOD GAS HCO3 30 mmol/L (19-24); ARTERIAL BLOOD GAS PO2 87 mm/Hg (80-95); ARTERIAL BLOOD GAS pH 7.45 (7.35-7.45)
[2016-12-01 20:25] LABS: ALLEN TEST POS (POS); O2 ADMINISTRATION 2 LITERS
[2016-12-01] MEDS: SIMVASTATIN 20 MG TAB PO SCH (20:40)
[2016-12-01 21:15] LABS: BUN/CREATININE RATIO 20.1 (10-20); CALCIUM 8.6 mg/dl (8.5-10.1); CREATININE 1.4 mg/dl (0.60-1.20); MAGNESIUM 2.1 mg/dl (1.8-2.4); POTASSIUM 4.4 mmol/L (3.5-5.1)
[2016-12-02] VITALS (15 sets, daily range): BP systolic 109–159; BP diastolic 65–90; PULSE 55–103; TEMP 36.2–36.7; O2SAT 90–99
[2016-12-02] MEDS: LEVOTHYROXINE 88 MCG TAB PO SCH (05:30)
[2016-12-02] MEDS: ALLOPURINOL 100 MG TAB PO SCH ×2 (08:40→21:05)
[2016-12-02] MEDS: ASPIRIN 81 MG ECTAB PO SCH (08:40)
[2016-12-02] MEDS: POTASSIUM CHLORIDE 20 MEQ TABCR PO SCH ×2 (08:41→21:05)
[2016-12-02] MEDS: CARVEDILOL 25 MG TAB PO SCH (08:41)
[2016-12-02] MEDS: CHOLECALCIFEROL 1000 INTER.UNIT TAB PO SCH (08:41)
[2016-12-02] MEDS: PANTOprazole SOD 40 MG TAB PO SCH (08:42)
[2016-12-02] MEDS: ISOSORBIDE MONONITRATE 30 MG TABCR PO SCH (08:42)
[2016-12-02] MEDS: CALCIUM 600MG + VIT D 400 IU TAB PO SCH ×2 (08:42→21:06)
[2016-12-02] MEDS: CEFTRIAXONE SOD INJ 1,000 MG in DEXTROSE 5% 50ML 50 ML IV SCH (10:07)
[2016-12-02 10:31] LABS: MEAN CELL VOLUME 96.6 fL (80-100); MEAN CORPUSCULAR HEMOGLOBIN 31.1 pg (25-34); MEAN CORPUSCULAR HGB CONC 32.2 g/dl (32-36); MEAN PLATELET VOLUME 10.8 fL (7.4-10.4); PLATELET COUNT 113 K/uL (130-400); RED BLOOD COUNT 3.83 M/uL (4.2-5.4); WHITE BLOOD COUNT 6.23 K/uL (4.8-10.8)
[2016-12-02 11:22] LABS: BUN/CREATININE RATIO 20.9 (10-20); CALCIUM 8.5 mg/dl (8.5-10.1); CREATININE 1.4 mg/dl (0.60-1.20); MAGNESIUM 2.2 mg/dl (1.8-2.4); POTASSIUM 4.5 mmol/L (3.5-5.1)
[2016-12-02] MEDS ORDERED: FUROSEMIDE INJ 40 MG in SYRINGE 0 ML IV ONE (13:00)
--- NOTE | 2016-12-02 14:37 | CARDIOLOGY CONSULTATION ---
DATE OF CONSULTATION: 12/02/2016 REFERRING PHYSICIAN: Sadiq shannon. REASON FOR CONSULTATION: Bradycardia and heart failure. HISTORY OF PRESENT ILLNESS: This is an 86-year-old female who has a history of chronic atrial fibrillation and chronic diastolic heart failure as well as chronic stage III kidney disease. She was admitted with progressive shortness of breath due to diastolic heart failure. She has been given intravenous diuretics with improvement of her symptoms. She was also started on IV antibiotics. After admission, they noted one episode of bradycardia, which lasted a brief time earlier today. She was completely asymptomatic. Review of her telemetry indicates atrial fibrillation with a controlled heart rate, which at times, however, goes down into the 40 beats per minute range. She has no current complaints. ALLERGIES: NAPROXEN, RAMIPRIL, TIZANIDINE AND TRAMADOL. PAST MEDICAL HISTORY: As outlined above, she has chronic atrial fibrillation, which has been treated with rate control and warfarin. She also has a history of chronic diastolic heart failure with mild valvular heart disease. She is treated for hypertension, dyslipidemia and hypothyroidism. She has chronic stage III kidney disease. SOCIAL HISTORY: She lives independently; however, her nephew stays with her at night. FAMILY MEDICAL HISTORY: Noncontributory. REVIEW OF SYSTEMS: A 10-point review of systems is negative except for the history of chief complaint. PHYSICAL EXAMINATION: GENERAL: She is alert and oriented. VITAL SIGNS: Blood pressure 110/70 and pulse is irregular at 80 beats per minute. She is afebrile. HEENT: She is normocephalic. Pupils are equal and reactive to light. Extraocular muscles are intact bilaterally. NECK: The neck veins are flat. Carotids have good upstrokes bilaterally without bruits. CARDIOVASCULAR: Heart has an irregular rhythm. There is a systolic murmur at the sternal border. RESPIRATORY: Breath sounds are equal. There are rhonchi and rales throughout the lungs. GASTROINTESTINAL: Abdomen is soft and nontender without organomegaly. EXTREMITIES: Free of edema, digit clubbing, or cyanosis. NEUROLOGIC: Grossly intact. SKIN: Warm to touch. LYMPH NODES: Negative to palpation. LABORATORY DATA: ProB natriuretic peptide is 8851. Potassium is 4.5 and creatinine is 1.4. Hemoglobin is 11.9 and WBC count is 6.23. IMPRESSION: 1. Acute on chronic diastolic heart failure. 2. Chronic atrial fibrillation. RECOMMENDATIONS: I would continue to give the patient diuretics as you have already been doing. She had one episode of bradycardia where her heart slowed to 40 BPM. The easiest thing to do would be to decrease her carvedilol from 25 mg b.i.d. to 12.5 mg b.i.d. I would leave her on the telemetry unit and follow her heart rates. We will follow along with you during her hospital stay. BRYANNA
[2016-12-02] MEDS: WARFARIN SOD 5 MG TAB PO SCH (16:21)
--- NOTE | 2016-12-02 17:39 | Progress Note ---
Internal Med Progress Note Date of Service: Dec 02, 2016. Provider Documentation: SUBJECTIVE: The patient was seen and examined Admitted with SOB secondary to CHF Feels a little better today Has had episodes Junctional Rhythm No symptoms reported OBJECTIVE: Vital Signs-as noted below Exam: General-Moderate distress at rest Eyes-normal ENT-Normal Neck-Supple Lungs-Decreased breath sound bilaterally and crackles at the bases Heart-Regular Abdomen-Benign,no masses,bowel sound present Extremities-1 + edema bilaterally Neuro-AAOx3 Lab data as noted below. ASSESSMENT & PLAN: This is an 86yo F with a PMH of diastolic CHF, Atrial fibrillation (on coumadin) , HTN and CKD stage III who presents with worsening shortness of breath since yesterday. Bradyarrhythmia Junctional rhythm ~40s Appreciate cardiology input Coreg decreased Acute Decompensated Diastolic CHF Shortness of breath -Weight increased ~5lbs since 11/21/16 visit to ER -BNP elevated to 8851 -CXR with mild cardiomegaly but no pulm congestion -Received a dose of ceftriaxone in ER for possible Pneumonia -O2 saturation in high 90s on 2L NC -Monitor vitals, CBC in AM -received Lasix in ER and will continue -Will consider consulting cardio if no improvement -Has cardio clinic appt on 12/02 with GIOVANNI Hoang -Cancelled -will continue with Lasix 40 mg IV daily UTI Continue Ceftriaxone Await C/S-E Coli ,Sensitive to Ceftriaxone Atrial fibrillation (on coumadin): -Rate-controlled, HR 70s-90s -Asymptomatic although irregular rhythm on exam -Continue home dose warfarin -INR therapeutic at 2.2 -Monitor on tele HTN: -Stable -Continue home meds CKD Stage III: -Cr of 1.3, GFR 37.6 -Currently at baseline or slightly better -Avoid nephrotoxic agents when able -Monitor BMP DVT Ppx: On warfarin Code status: FULL PCP: William Dispo: Discharge planning ordered due to patient >80yo and lives alone Vital Signs: Date Time Temp Pulse Resp B/P (MAP) Pulse Ox O2 Delivery O2 Flow Rate FiO2 12/02/16 15:32 36.4 74 20 130/71 (90) 95 Nasal Cannula 1.0 12/02/16 13:30 90 114/78 (90) 12/02/16 12:00 Nasal Cannula 1.0 12/02/16 11:40 96 12/02/16 11:23 36.3 80 16 109/69 (82) 96 Nasal Cannula 2.0 12/02/16 11:13 36.2 77 18 117/65 (82) 95 Nasal Cannula 1.0 12/02/16 10:14 Nasal Cannula 1.0 12/02/16 08:00 Nasal Cannula 1.0 12/02/16 07:06 36.4 81 18 146/89 (108) 99 Nasal Cannula 1.0 12/02/16 04:58 36.7 103 20 149/80 (103) 97 Room Air 12/02/16 04:00 97 Nasal Cannula 2.0 12/02/16 00:10 36.7 78 20 149/80 (103) 97 2.0 12/02/16 00:00 97 Nasal Cannula 2.0 12/01/16 20:22 36.3 91 20 155/93 (113) 95 Nasal Cannula 2.0 12/01/16 20:13 94 20 96 Nasal Cannula 2.0 12/01/16 20:00 97 Nasal Cannula 2.0 12/01/16 18:02 88 Room Air Lab Results: Results Past 24 Hours Test 12/01/16 20:04 12/02/16 06:06 12/02/16 10:44 Range/Units Arterial Blood pH 7.45 7.35-7.45 Arterial Blood Partial Pressure CO2 44 35-46 mmHg Arterial Blood Partial Pressure O2 87 80-95 mm/Hg Arterial Blood HCO3 30 19-24 mmol/L Arterial Blood Oxygen Saturation 96.8 90-95 % Arterial Blood Base Excess 5.5 -9-1.8 mEq/L Arterial Blood Gas Delivery 2 LITERS Balwinder Test POS POS Sodium Level 138 140 136-145 mmol/L Potassium Level 4.4 4.5 3.5-5.1 mmol/L Chloride Level 104 104 98-107 mmol/L Carbon Dioxide Level 30 34 21-32 mmol/L Anion Gap 4.0 2.0 3-11 mmol/L Blood Urea Nitrogen 28 29 7-18 mg/dl Creatinine 1.40 1.40 0.60-1.20 mg/dl Est Creatinine Clear Calc Drug Dose 30.0 30.0 ml/min Estimated GFR () 39.9 39.9 Estimated GFR (Non- 34.4 34.4 BUN/Creatinine Ratio 20.1 20.9 10-20 Random Glucose 128 100 70-99 mg/dl Calcium Level 8.6 8.5 8.5-10.1 mg/dl Magnesium Level 2.1 2.2 1.8-2.4 mg/dl White Blood Count 6.23 4.8-10.8 K/uL Red Blood Count 3.83 4.2-5.4 M/uL Hemoglobin 11.9 12.0-16.0 g/dL Hematocrit 37.0 37-47 % Mean Corpuscular Volume 96.6 80-100 fL Mean Corpuscular Hemoglobin 31.1 25-34 pg Mean Corpuscular Hemoglobin Concent 32.2 32-36 g/dl RDW Standard Deviation 52.9 36.4-46.3 fL RDW Coefficient of Variation 15.0 11.5-14.5 % Platelet Count 113 130-400 K/uL Mean Platelet Volume 10.8 7.4-10.4 fL
[2016-12-02] MEDS: SIMVASTATIN 20 MG TAB PO SCH (21:05)
[2016-12-02] MEDS: CARVEDILOL 12.5 MG TAB PO SCH (21:06)
[2016-12-03] VITALS (9 sets, daily range): BP systolic 93–161; BP diastolic 57–82; PULSE 75–92; TEMP 36.5–36.9; O2SAT 90–95
[2016-12-03 07:13] LABS: BUN/CREATININE RATIO 20.2 (10-20); CALCIUM 8.8 mg/dl (8.5-10.1); CREATININE 1.4 mg/dl (0.60-1.20); MAGNESIUM 2.1 mg/dl (1.8-2.4); POTASSIUM 4.3 mmol/L (3.5-5.1)
[2016-12-03] MEDS ORDERED: FUROSEMIDE INJ 40 MG in SYRINGE 0 ML IV SCH (09:00)
[2016-12-03] MEDS: CALCIUM 600MG + VIT D 400 IU TAB PO SCH (09:02)
[2016-12-03] MEDS: CARVEDILOL 12.5 MG TAB PO SCH (09:02)
[2016-12-03] MEDS: LEVOTHYROXINE 88 MCG TAB PO SCH (09:02)
[2016-12-03] MEDS: POTASSIUM CHLORIDE 20 MEQ TABCR PO SCH (09:03)
[2016-12-03] MEDS: PANTOprazole SOD 40 MG TAB PO SCH (09:03)
[2016-12-03] MEDS: ASPIRIN 81 MG ECTAB PO SCH (09:03)
[2016-12-03] MEDS: ALLOPURINOL 100 MG TAB PO SCH (09:03)
[2016-12-03] MEDS: CHOLECALCIFEROL 1000 INTER.UNIT TAB PO SCH (09:04)
[2016-12-03] MEDS: CEFTRIAXONE SOD INJ 1,000 MG in DEXTROSE 5% 50ML 50 ML IV SCH (09:04)
[2016-12-03] MEDS: ISOSORBIDE MONONITRATE 30 MG TABCR PO SCH (09:04)
--- NOTE | 2016-12-03 14:09 | Progress Note ---
Internal Med Progress Note Date of Service: Dec 03, 2016. Provider Documentation: SUBJECTIVE: The patient was seen and examined Admitted with SOB secondary to CHF No more bradycardia Ready to be discharged OBJECTIVE: Vital Signs-as noted below Exam: General-Moderate distress at rest Eyes-normal ENT-Normal Neck-Supple Lungs-Decreased breath sound bilaterally and crackles at the bases Heart-Regular Abdomen-Benign,no masses,bowel sound present Extremities-1 + edema bilaterally Neuro-AAOx3 Lab data as noted below. ASSESSMENT & PLAN: This is an 86yo F with a PMH of diastolic CHF, Atrial fibrillation (on coumadin) , HTN and CKD stage III who presents with worsening shortness of breath since yesterday. Bradyarrhythmia Junctional rhythm ~40s Appreciate cardiology input Coreg decreased No more bradycardia Discussed with the Fire Prevention Officer Acute Decompensated Diastolic CHF Shortness of breath -Weight increased ~5lbs since 11/21/16 visit to ER -BNP elevated to 8851 -CXR with mild cardiomegaly but no pulm congestion -Received a dose of ceftriaxone in ER for possible Pneumonia -O2 saturation in high 90s on 2L NC -Monitor vitals, CBC in AM -received Lasix in ER and will continue -Will consider consulting cardio if no improvement -Has cardio clinic appt on 12/02 with GIOVANNI Hoang -Cancelled -will continue with Lasix 40 mg IV daily -will discharge her on previous dose of Lasix UTI Continue Ceftriaxone Await C/S-E Coli ,Sensitive to Ceftriaxone Will give Keflex for 7 days in total Atrial fibrillation (on coumadin): -Rate-controlled, HR 70s-90s -Asymptomatic although irregular rhythm on exam -Continue home dose warfarin -INR therapeutic at 2.2 -Monitor on tele HTN: -Stable -Continue home meds CKD Stage III: -Cr of 1.3, GFR 37.6 -Currently at baseline or slightly better -Avoid nephrotoxic agents when able -Monitor BMP DVT Ppx: On warfarin Code status: FULL PCP: William Dispo: Discharge to home Vital Signs: Date Time Temp Pulse Resp B/P (MAP) Pulse Ox O2 Delivery O2 Flow Rate FiO2 12/03/16 13:30 110/68 (82) 12/03/16 11:33 36.5 75 16 93/57 (69) 93 Room Air 12/03/16 07:34 36.9 92 16 161/82 (108) 90 Room Air 12/03/16 04:00 91 Room Air 12/03/16 03:53 36.9 92 16 124/77 (93) 91 Room Air 12/03/16 00:00 95 Room Air 12/02/16 23:44 36.7 55 16 142/69 (93) 96 Room Air 12/02/16 21:04 79 139/90 (106) 12/02/16 20:10 36.4 78 18 159/87 (111) 90 Room Air 12/02/16 20:00 95 Room Air 12/02/16 16:00 95 Nasal Cannula 1.0 12/02/16 15:32 36.4 74 20 130/71 (90) 95 Nasal Cannula 1.0 Lab Results: Results Past 24 Hours Test 12/03/16 06:06 Range/Units Sodium Level 138 136-145 mmol/L Potassium Level 4.3 3.5-5.1 mmol/L Chloride Level 101 98-107 mmol/L Carbon Dioxide Level 34 21-32 mmol/L Anion Gap 3.0 3-11 mmol/L Blood Urea Nitrogen 28 7-18 mg/dl Creatinine 1.40 0.60-1.20 mg/dl Est Creatinine Clear Calc Drug Dose 30.1 ml/min Estimated GFR () 39.9 Estimated GFR (Non- 34.4 BUN/Creatinine Ratio 20.2 10-20 Random Glucose 91 70-99 mg/dl Calcium Level 8.8 8.5-10.1 mg/dl Magnesium Level 2.1 1.8-2.4 mg/dl
[2016-12-03] MEDS ORDERED: CEPH500C2 PO (14:16)
[2016-12-03] MEDS ORDERED: CRG125 PO (14:16)
--- NOTE | 2016-12-03 14:18 | Discharge Instructions ---
Discharge Instructions Date of Service Dec 03, 2016. Admission Reason for Admission: SOB Discharge Discharge Diagnosis / Problem: Diastolic CHF,UTI Discharge Goals Goal(s): Prevent Disease Progression Activity Recommendations Activity Limitations: resume your previous activity . Instructions / Follow-Up Instructions / Follow-Up Dr Richardson on 12/08/16 at 11:00AM Call your Primary Care doctor if any of the following symptoms or problems start or get worse: * Shortness of breath or difficulty breathing * Wake up at night short of breath * Chest pain * Cough * Swelling of your hands, feet, or legs * More fatigued or tired with your normal activity * Palpitations - sudden fast heart beats WEIGHT * Weigh yourself every morning after using the bathroom. * Use the same scale. * Wear the same amount of clothing. * Write your weight down on a chart. * Call your Primary Care doctor if you gain more than 2-3 pounds in 1-2 days. MEDICATIONS * Use this discharge instruction sheet for medication instructions. * Take your medications at the time your doctor ordered. * Do not skip a dose of your medicines. * If you miss a dose of medicine, take it as soon as possible, but DO NOT DOUBLE A DOSE. * Read your medicine information when you get home. * Know all of the side effects of your medicine. If in doubt, ask your pharmacist * Call your Primary Care doctor's office if you have any side effects. * Be sure all of your doctors know what medicine and herbs you take (including cold, flu, and herbal medicine). Take the following with you to your follow-up doctor appointments: * Weight Chart * Medication List * List of questions Do not drink excessive alcohol, beer or wine. Current Hospital Diet Patient's current hospital diet: Low Sodium Diet (2gm Na), AHA Diet (Heart Healthy) Discharge Diet Recommended Diet: AHA Diet (Heart Healthy), Low Sodium Diet (2gm Na) Fluid Restriction: 1500 ml (6 cups) Pending Studies Studies pending at discharge: no Medical Emergencies . Who to Call and When: Call 911 or go to the Emergency Room if: * If at any time you feel your situation is an emergency * You have tightness or pain in your chest that does not go away with rest or Nitroglycerin * You are very short of breath even with rest . Non-Emergent Contact Non-Emergency issues call your: Primary Care Provider . Past History Medical & Surgical History: (1) UTI (urinary tract infection) (2) Congestive heart failure (3) Afib (4) HTN (hypertension) (5) Diastolic CHF, chronic (6) Acute decompensated heart failure (7) CKD (chronic kidney disease), stage III (8) S/P cholecystectomy . "Provider Documentation" section prepared by Tyson Rebolledo. . VTE Core Measure Inpt VTE Proph given/why not?: Warfarin (Coumadin)
[2016-12-03] MEDS ORDERED: WARFARIN SOD 2.5 MG TAB PO SCH (16:00)
--- NOTE | 2016-12-04 10:18 | Discharge Summary ---
Discharge Summary Date of Service Dec 04, 2016. Discharge Summary Admission Date: Nov 30, 2016 at 11:39 Discharge Date: Dec 03, 2016 Discharge Disposition: Home Principal Diagnosis: Diastolic CHF,UTI Secondary Diagnoses/Problems: Please see H&P and Hospital Progress note Medication Reconciliation New Medications: Cephalexin Monohydrate (Keflex) 500 Mg Cap 500 MG PO TID, #15 CAP Carvedilol (Carvedilol) 12.5 Mg Tab 12.5 MG PO BID for 30 Days, #60 TAB Continued Medications: Allopurinol (Zyloprim) 100 Mg Tab 100 MG PO BID, TAB Aspirin (Aspirin) 81 Mg Tab 81 MG PO DAILY Calcium Carbonate-Vitamin D (Calcium 600+D) 1 Tab Tab 1 TAB PO BID Cholecalciferol (Vitamin D 1000 Unit) 1,000 Unit Cap 1000 INTER.UNIT PO DAILY, CAP Furosemide (Lasix) 20 Mg Tab 1 TAB PO DAILY for 90 Days, #90 TAB 1 Refill Isosorbide Mononitrate (Isosorbide Mononitrate ER) 30 Mg Tabcr 30 MG PO DAILY Levothyroxine Sodium (Synthroid) 88 Mcg Tab 88 MCG PO QAM Omeprazole (Prilosec) 20 Mg Capcr 20 MG PO DAILY, CAP Potassium Ext Rel (Klor-Con) 20 Meq Tabcr 20 MEQ PO BID, TAB Simvastatin (Zocor) 20 Mg Tab 20 MG PO QPM, TAB Warfarin Sod (Jantoven) 2.5 Mg Tab 0 PO UD, TAB TAKE 2 pills (5 MG) on , TUE, TUE, SAT, SUN. TAKE 1 PILL (2.5MG) ON TUESDAY AND TUESDAY. Discontinued Medications: Carvedilol (Coreg) 25 Mg Tab 25 MG PO BID, TAB Admission Information HPI (per Admitting provider): This is an 86yo F with a PMH of diastolic CHF, Atrial fibrillation (on coumadin) , HTN and CKD stage III who presents with worsening shortness of breath since yesterday. Patient was recently seen at [facility] ED on 11/21/16 for shortness of breath and was found to be in decompensated CHF. Was given IV Lasix and seen by cardio, who suggested increasing home dose of Lasix to 40mg x 2 days before returning to normal dose of 20mg. Patient states that SOB improved after making these adjustments but she did not return to baseline. She presents again today with SOB, experiencing dyspnea with any type of exertion, even using the restroom. At baseline, patient can ambulate around her home comfortably without SOB. Also states that she developed rhinorrhea and a cough with productive clear /white sputum yesterday. Does not require home O2. Endorses orthopnea but denies any fever, chills, nasal congestion, sore throat, chest pain, palpitations, abdominal pain, LE swelling or weight gain. Has a follow-up appointment with cardio (GIOVANNI Hoang) on 12/02/16. ED course included a dose of IV Lasix and ceftriaxone (for temp of 37.5 and cough). Past Medical/Surgical History Medical Problems: (1) Afib Status: Chronic (2) CKD (chronic kidney disease), stage III Status: Chronic (3) Diastolic CHF, chronic Status: Chronic (4) HTN (hypertension) Status: Chronic (5) Lumbar disc disease Status: Chronic (6) Osteoarthritis Status: Chronic Family History Diabetes mellitus Heart disease Hypertension Social History Smoking Status: Never Smoker Drug Use: none Marital Status: single Housing status: lives alone Occupational Status: retired Multi-Drug Resistant Organisms History of MDRO: No Allergies Coded Allergies: Naproxen (Verified Adverse Reaction, Intermediate, HYPERTENSION, 11/30/16) Ramipril (Verified Adverse Reaction, Intermediate, DIZZY, 11/30/16) Tizanidine (Verified Adverse Reaction, Intermediate, HIP PAIN, 11/30/16) Tramadol (Verified Adverse Reaction, Intermediate, "WOOZY", 11/30/16) Home Medications Scheduled Allopurinol (Zyloprim), 100 MG PO BID Aspirin (Aspirin), 81 MG PO DAILY Calcium Carbonate-Vitamin D (Calcium 600+D), 1 TAB PO BID Carvedilol (Coreg), 25 MG PO BID Cholecalciferol (Vitamin D 1000 Unit), 1,000 INTER.UNIT PO DAILY Furosemide (Lasix), 1 TAB PO DAILY Levothyroxine Sodium (Synthroid), 88 MCG PO QAM Omeprazole (Prilosec), 20 MG PO DAILY Potassium Ext Rel (Klor-Con), 20 MEQ PO BID Simvastatin (Zocor), 20 MG PO QPM Warfarin Sod (Jantoven), 5 MG PO 5XWK Warfarin Sod (Jantoven), 2.5 MG PO 2XWK Review of Systems Ten systems reviewed and negative except as noted in the HPI. Physical Ex - H&P Physical Exam Vital Signs Date Time Temp Pulse Resp B/P (MAP) Pulse Ox O2 Delivery O2 Flow Rate FiO2 11/30/16 12:22 Nasal Cannula 2.0 11/30/16 11:30 98 22 139/76 96 Room Air 11/30/16 09:39 71 22 131/97 96 Nasal Cannula 2.0 11/30/16 08:10 93 Nasal Cannula 2.0 11/30/16 08:10 81 20 139/72 87 Room Air 11/30/16 08:08 74 11/30/16 08:05 91 Room Air 11/30/16 07:49 37.5 95 20 162/75 92 Room Air 11/30/16 07:49 92 Room Air General Appearance: WD/WN, no apparent distress (Comfortable on exam with NC oxygen in place. ) Head: normocephalic, atraumatic Eyes: normal inspection, PERRL, sclerae normal ENT: hearing grossly normal Neck: supple, no adenopathy, no JVD, trachea midline Respiratory/Chest: chest non-tender, no respiratory distress, no accessory muscle use, + rhonchi (Cleared after coughing ), + wheezing (Mild inspiratory and expiratory wheezes noted throughout lung eli.) Cardiovascular: normal peripheral pulses, + irregularly irregular Abdomen/GI: normal bowel sounds, non tender, soft, no organomegaly Back: normal inspection Extremities/Musculoskelatal: normal inspection, no calf tenderness, normal capillary refill, no pedal edema Neurologic/Psych: no motor/sensory deficits, alert, normal mood/affect, oriented x 3 Skin: normal color, warm/dry, no rash Diagnostics - H&P Diagnostics Laboratory Results Results Past 24 Hours Test 11/30/16 07:57 11/30/16 08:34 11/30/16 08:40 Range/Units Urine Color YELLOW Urine Appearance CLEAR CLEAR Urine pH 5.5 4.5-7.5 Urine Specific [place] 1.012 1.000-1.030 Urine Protein NEG NEG Urine Glucose (UA) NEG NEG Urine Ketones NEG NEG Urine Occult Blood TRACE NEG Urine Nitrite NEG NEG Urine Bilirubin NEG NEG Urine Urobilinogen NEG NEG Urine Leukocyte Esterase NEG NEG Urine WBC (Auto) 1-5 0-5 /hpf Urine RBC (Auto) 0-4 0-4 /hpf Urine Hyaline Casts (Auto) 0 0-5 /lpf Urine Epithelial Cells (Auto) 5-10 0-5 /lpf Urine Bacteria (Auto) 4+ NEG White Blood Count 9.56 4.8-10.8 K/uL Red Blood Count 3.78 4.2-5.4 M/uL Hemoglobin 11.7 12.0-16.0 g/dL Hematocrit 35.8 37-47 % Mean Corpuscular Volume 94.7 80-100 fL Mean Corpuscular Hemoglobin 31.0 25-34 pg Mean Corpuscular Hemoglobin Concent 32.7 32-36 g/dl Platelet Count 121 130-400 K/uL Mean Platelet Volume 10.9 7.4-10.4 fL Neutrophils (%) (Auto) 84.2 % Lymphocytes (%) (Auto) 6.2 % Monocytes (%) (Auto) 8.5 % Eosinophils (%) (Auto) 0.5 % Basophils (%) (Auto) 0.3 % Neutrophils # (Auto) 8.05 1.4-6.5 K/uL Lymphocytes # (Auto) 0.59 1.2-3.4 K/uL Monocytes # (Auto) 0.81 0.11-0.59 K/uL Eosinophils # (Auto) 0.05 0-0.5 K/uL Basophils # (Auto) 0.03 0-0.2 K/uL RDW Standard Deviation 51.9 36.4-46.3 fL RDW Coefficient of Variation 15.1 11.5-14.5 % Immature Granulocyte % (Auto) 0.3 % Immature Granulocyte # (Auto) 0.03 0.00-0.02 K/uL Prothrombin Time 24.4 9.0-12.0 SECONDS Prothromb Time International Ratio 2.2 0.9-1.1 Activated Partial Thromboplast Time 31.4 21.0-31.0 SECONDS Partial Thromboplastin Ratio 1.2 Sodium Level 140 136-145 mmol/L Potassium Level 3.7 3.5-5.1 mmol/L Chloride Level 107 98-107 mmol/L Carbon Dioxide Level 26 21-32 mmol/L Anion Gap 7.0 3-11 mmol/L Blood Urea Nitrogen 26 7-18 mg/dl Creatinine 1.30 0.60-1.20 mg/dl Est Creatinine Clear Calc Drug Dose 34.2 ml/min Estimated GFR () 43.6 Estimated GFR (Non- 37.6 BUN/Creatinine Ratio 20.3 10-20 Random Glucose 121 70-99 mg/dl Calcium Level 8.5 8.5-10.1 mg/dl Magnesium Level 1.8 1.8-2.4 mg/dl Total Bilirubin 1.9 0.2-1 mg/dl Direct Bilirubin 0.5 0-0.2 mg/dl Aspartate Amino Transf (AST/SGOT) 31 15-37 U/L Alanine Aminotransferase (ALT/SGPT) 23 12-78 U/L Alkaline Phosphatase 67 45-117 U/L Total Creatine Kinase 129 26-192 U/L Creatine Kinase MB 2.2 0.5-3.6 ng/ml Creatine Kinase MB Ratio 1.7 0-3.0 Pro-B-Type Natriuretic Peptide 8851 0-1800 pg/ml Total Protein 6.7 6.4-8.2 gm/dl Albumin 3.2 3.4-5.0 gm/dl Bedside Troponin I < 0.030 0-0.045 ng/ml Microbiology Results 11/30/16 Blood Culture, Received Pending 11/30/16 Blood Culture, Received Pending 11/30/16 Urine Culture, Received Pending Diagnostic Radiology CXR: IMPRESSION: Fixed hiatal hernia. Mild cardia megaly. Otherwise negative study EKG Atrial fibrillation Nonspecific ST and T wave abnormality No change from prior EKG Impression - H&P Impression Assessment and Plan This is an 86yo F with a PMH of diastolic CHF, Atrial fibrillation (on coumadin) , HTN and CKD stage III who presents with worsening shortness of breath since yesterday. Shortness of breath: -Most likely a mildly decompensated CHF -CXR with mild cardiomegaly but no pulm congestion -Considered PNA but no opacities on CXR, no leukocytosis, afebrile -Received a dose of ceftriaxone in ER -No indication to continue antibiotic on the floor -Recent rhinorrhea and cough may reflect a URI; monitor -O2 saturation in high 90s on 2L NC -Monitor vitals, CBC in AM Acute on chronic diastolic CHF: -SOB increased from baseline -Euvolemic to slightly overloaded on exam -Crackles bilaterally on exam initially; improved after IV Lasix -Weight increased ~5lbs since 11/21/16 visit to ER -BNP elevated to 8851 -Given 40mg IV Lasix in ER. Will give another dose this afternoon -Low Na diet, daily weights -Continue home meds -Recent echo in 04/06 with EF: 59. Mild concentric LVH -Will consider consulting cardio if no improvement -Has cardio clinic appt on 12/02 with GIOVANNI Hoang Atrial fibrillation (on coumadin): -Rate-controlled, HR 70s-90s -Asymptomatic although irregular rhythm on exam -Continue home dose warfarin -INR therapeutic at 2.2 -Monitor on tele HTN: -Stable -Continue home meds CKD Stage III: -Cr of 1.3, GFR 37.6 -Currently at baseline or slightly better -Avoid nephrotoxic agents when able -Monitor BMP DVT Ppx: On warfarin Code status: FULL PCP: William Dispo: Discharge planning ordered due to patient >80yo and lives alone Level of Care Telemetry Advanced Directives Existing Living Will: No Existing Power of Channel Sales Manager: Yes Resuscitation Status FULL RESUSCITATION VTE Prophylaxis VTE Risk Assessment Done? Y/N: Yes Risk Level: High Given or contraindicated: Warfarin (Coumadin) Social Service Consult >80 yr.& Lives Alone Note ATTENDING ADDENDUM Record reviewed. Patient interviewed and examined in ED ~ 13:10. Care coordinated with Sweetie Beth PA-C. Please refer to her documentation for patient's history. Briefly, 86 YO female w history of diastolic CHF, chronic AF, and other problems as noted. Presented to ED with a few days of worsening dyspnea on exertion and 2-pillow orthopnea. Wt up 1-2 lbs. Has cough productive of clear sputum; no fever, chills. EXAM: General- no acute distress VS- as noted HEENT- anicteric Neck- + JVD Lungs- bibasilar rales, mild wheezing Heart- irregular, I/ systolic murmur at base, no gallop appreciated Abdomen- + BS, soft, nontender; no palpable masses or hepatosplenomegaly Extremities- trace pretibial edema, no calf tenderness Neuro- alert, oriented. DATA: BUN 26, creatinine 1.3, Total bili 1.9, direct bili 0.5, AST, ALT, alk phos normal. BNP 8851. Trop < 0.030. INR 2.2. Other lab studies as noted. EKG performed at 07:54 reviewed and demonstrated AF at 90 / minute, baseline artifact, ST depression I, II, aVL, aVF, ? V6. Chest x-ray reviewed- cardiomegaly; no pulmonary edema, infiltrates, effusions. ASSESSMENT AND PLAN: History of diastolic CHF. Worsening dyspnea over past few days. O2 sats as low as 87% on RA in ED. No overt pulmonary edema radiographically, but exam and BNP consistent with CHF. Probable acute on chronic left ventricular diastolic heart failure. Echo 04/09/16 demonstrated normal LV systolic function, grade II diastolic dysfunction, mild MR, mild TR. No need to repeat echo at this time. Received IV furosemide in ED. Will repeat dose this afternoon, then await morning reassessment and labs. Need to watch renal function closely due to CKD. Coordinate care with Cardiology. Doubt PE- patient chronically anticoagulated with therapeutic INR. Has mild cough. No infiltrates on CXR. Suspect viral bronchitis. No indication for antibiotics at this time. Reassess as needed if cough persists or worsens. Chronic AF, rate controlled. Continue carvedilol and warfarin. Please refer to TAWANNA Beth's documentation for discussion of other issues. Fede Dunn MD . Physical Exam (per Admitting): General Appearance: WD/WN, no apparent distress (Comfortable on exam with NC oxygen in place. ) Head: normocephalic, atraumatic Eyes: normal inspection, PERRL, sclerae normal ENT: hearing grossly normal Neck: supple, no adenopathy, no JVD, trachea midline Respiratory/Chest: chest non-tender, no respiratory distress, no accessory muscle use, + rhonchi (Cleared after coughing ), + wheezing (Mild inspiratory and expiratory wheezes noted throughout lung eli.) Cardiovascular: normal peripheral pulses, + irregularly irregular Abdomen/GI: normal bowel sounds, non tender, soft, no organomegaly Back: normal inspection Extremities/Musculoskelatal: normal inspection, no calf tenderness, normal capillary refill, no pedal edema Neurologic/Psych: no motor/sensory deficits, alert, normal mood/affect, oriented x 3 Skin: normal color, warm/dry, no rash Hospital Course This is an 86yo F with a PMH of diastolic CHF, Atrial fibrillation (on coumadin) , HTN and CKD stage III who presents with worsening shortness of breath since yesterday. Bradyarrhythmia Junctional rhythm ~40s Appreciate cardiology input Coreg decreased No more bradycardia Discussed with the Casino Gaming Inspector Acute Decompensated Diastolic CHF Shortness of breath -Weight increased ~5lbs since 11/21/16 visit to ER -BNP elevated to 8851 -CXR with mild cardiomegaly but no pulm congestion -Received a dose of ceftriaxone in ER for possible Pneumonia -O2 saturation in high 90s on 2L NC -Monitor vitals, CBC in AM -received Lasix in ER and will continue -Will consider consulting cardio if no improvement -Has cardio clinic appt on 12/02 with GIOVANNI Hoang -Cancelled -will continue with Lasix 40 mg IV daily -will discharge her on previous dose of Lasix UTI Continue Ceftriaxone Await C/S-E Coli ,Sensitive to Ceftriaxone Will give Keflex for 7 days in total Atrial fibrillation (on coumadin): -Rate-controlled, HR 70s-90s -Asymptomatic although irregular rhythm on exam -Continue home dose warfarin -INR therapeutic at 2.2 -Monitor on tele HTN: -Stable -Continue home meds CKD Stage III: -Cr of 1.3, GFR 37.6 -Currently at baseline or slightly better -Avoid nephrotoxic agents when able -Monitor BMP DVT Ppx: On warfarin Code status: FULL PCP: William Dispo: Discharge to home Total time spent on discharge = 35 minutes This includes examination of the patient, discharge planning, medication reconciliation, and communication with other providers. Discharge Instructions Date of Service Dec 03, 2016. Admission Reason for Admission: SOB Discharge Discharge Diagnosis / Problem: Diastolic CHF,UTI Discharge Goals Goal(s): Prevent Disease Progression Activity Recommendations Activity Limitations: resume your previous activity . Instructions / Follow-Up Instructions / Follow-Up Dr Thomas on 12/08/16 at 11:00AM Call your Primary Care doctor if any of the following symptoms or problems start or get worse: * Shortness of breath or difficulty breathing * Wake up at night short of breath * Chest pain * Cough * Swelling of your hands, feet, or legs * More fatigued or tired with your normal activity * Palpitations - sudden fast heart beats WEIGHT * Weigh yourself every morning after using the bathroom. * Use the same scale. * Wear the same amount of clothing. * Write your weight down on a chart. * Call your Primary Care doctor if you gain more than 2-3 pounds in 1-2 days. MEDICATIONS * Use this discharge instruction sheet for medication instructions. * Take your medications at the time your doctor ordered. * Do not skip a dose of your medicines. * If you miss a dose of medicine, take it as soon as possible, but DO NOT DOUBLE A DOSE. * Read your medicine information when you get home. * Know all of the side effects of your medicine. If in doubt, ask your pharmacist * Call your Primary Care doctor's office if you have any side effects. * Be sure all of your doctors know what medicine and herbs you take (including cold, flu, and herbal medicine). Take the following with you to your follow-up doctor appointments: * Weight Chart * Medication List * List of questions Do not drink excessive alcohol, beer or wine. Current Hospital Diet Patient's current hospital diet: Low Sodium Diet (2gm Na), AHA Diet (Heart Healthy) Discharge Diet Recommended Diet: AHA Diet (Heart Healthy), Low Sodium Diet (2gm Na) Fluid Restriction: 1500 ml (6 cups) Pending Studies Studies pending at discharge: no Medical Emergencies . Who to Call and When: Call 911 or go to the Emergency Room if: * If at any time you feel your situation is an emergency * You have tightness or pain in your chest that does not go away with rest or Nitroglycerin * You are very short of breath even with rest . Non-Emergent Contact Non-Emergency issues call your: Primary Care Provider . Past History Medical & Surgical History: (1) UTI (urinary tract infection) (2) Congestive heart failure (3) Afib (4) HTN (hypertension) (5) Diastolic CHF, chronic (6) Acute decompensated heart failure (7) CKD (chronic kidney disease), stage III (8) S/P cholecystectomy . "Provider Documentation" section prepared by Tyson Rebolledo. . VTE Core Measure Inpt VTE Proph given/why not?: Warfarin (Coumadin) <Electronically signed by Tyson Rebolledo M.D.> Signed: 12/03/16 1593 Additional Copies To Marika Thomas D.O.
== END 2016-12-03 14:00 | disposition home or self-care (01) | DRG 291 ==
LOC: EDBD 07:44 → C.EDB 07:45 → C.MED 11:39 → ENRESERV 13:35
PROVIDERS: ADMIT Hospitalist; ATTEND Internal Medicine
DX: I13.0 Hypertensive heart and chronic kidney disease with heart failure and stage 1 through stage 4 chronic kidney disease, or unspecified chronic kidney disease (principal); I50.33 Acute on chronic diastolic (congestive) heart failure; N39.0 Urinary tract infection, site not specified; N18.3 Chronic kidney disease, stage 3 (moderate); I48.2 Chronic atrial fibrillation; M19.90 Unspecified osteoarthritis, unspecified site; M51.86 Other intervertebral disc disorders, lumbar region; Z83.3 Family history of diabetes mellitus; Z79.01 Long term (current) use of anticoagulants; B96.20 Unspecified Escherichia coli [E. coli] as the cause of diseases classified elsewhere

== ENCOUNTER 2017-03-29 19:25 | Inpatient (IN) | payer OTHER ==
[~2017-03-29] VITALS: Ht 165.1 cm; Wt 68.9 kg
[~2017-03-29 19:25] MED LIST changes: -CARV25TA2 PO; +CEPH500C2 PO; +CRG125 PO; +ISOS-11 PO; -WARF5TAB7 PO
[2017-03-29] MEDS ORDERED: FUROSEMIDE 40 MG/4 ML VIAL IV STA (19:49)
--- NOTE | 2017-03-29 19:53 | EMERGENCY ROOM VISIT NOTE ---
History Report prepared by Bebeto: Suki Diana Under the Supervision of: Dr. Kelly Mata M.D. First contact with patient: 19:38 Chief Complaint: SHORTNESS OF BREATH Stated Complaint: SOB History of Present Illness The patient is a 86 year old female who presents to the Emergency Room with complaints of worsening shortness of breath beginning about six days ago. The patient was seen by a PA-C from her PCP's office yesterday. The patient reports her oxygen saturation sitting and walking around was 92 percent. The patient was put on prednisone and amoxicillin to treat her bronchitis. The patient states she has had a "stringy mucus" productive cough. She denies any increased swelling to her extremities, fever, or chest discomfort. The patient reports she got her calcium supplement stuck in her throat this morning which is causing her some throat discomfort. The patient has a history of CHF and atrial fibrillation. Source of History: patient Onset: 6 days ago Position: other (generalized) Quality: other (shortness of breath) Timing: worsening Associated Symptoms: + cough, + SOB, No fevers, No chest pain Review of Systems See HPI for pertinent positives & negatives. A total of 10 systems reviewed and were otherwise negative. Past Medical & Surgical Medical Problems: (1) Afib (2) CKD (chronic kidney disease), stage III (3) Diastolic CHF, chronic (4) HTN (hypertension) (5) Lumbar disc disease (6) Osteoarthritis (7) UTI (urinary tract infection) Family History Diabetes mellitus Heart disease Hypertension Social History Smoking Status: Never Smoker Drug Use: none Marital Status: single Housing Status: lives with family Occupation Status: retired Current/Historical Medications Scheduled Allopurinol (Zyloprim), 100 MG PO BID Amoxicillin & Pot Clavulanate (Augmentin 875-125 mg), 1 TAB PO BID Aspirin (Aspirin), 81 MG PO DAILY Calcium Carbonate-Vitamin D (Calcium 600+D), 1 TAB PO BID Carvedilol (Coreg), 25 MG PO QAM Carvedilol (Coreg), 12.5 MG PO QPM Cholecalciferol (Vitamin D 1000 Unit), 1,000 INTER.UNIT PO DAILY Estrogens, Conjugated (Premarin), 1 APPLN TOP MWF Furosemide (Furosemide), 20 MG PO Q2D Furosemide (Lasix), 40 MG PO Q2D Isosorbide Mononitrate (Isosorbide Mononitrate ER), 30 MG PO DAILY Levothyroxine Sodium (Synthroid), 88 MCG PO QAM Omeprazole (Prilosec), 20 MG PO DAILY Potassium Ext Rel (Klor-Con), 20 MEQ PO BID Prednisone (Prednisone), 40 MG PO UD Simvastatin (Zocor), 20 MG PO QPM Warfarin Sod (Jantoven), 5 MG PO 5XWK Warfarin Sodium (Warfarin Sodium), 2.5 MG PO MON&FRI Allergies Coded Allergies: Naproxen (Verified Adverse Reaction, Intermediate, HYPERTENSION, 11/30/16) Ramipril (Verified Adverse Reaction, Intermediate, DIZZY, 11/30/16) Tizanidine (Verified Adverse Reaction, Intermediate, HIP PAIN, 11/30/16) Tramadol (Verified Adverse Reaction, Intermediate, "WOOZY", 11/30/16) Physical Exam Vital Signs Date Time Temp Pulse Resp B/P (MAP) Pulse Ox O2 Delivery O2 Flow Rate FiO2 03/29/17 21:15 98 23 97 03/29/17 21:10 105 24 96 03/29/17 21:05 88 22 148/85 87 Room Air 03/29/17 21:01 161/91 03/29/17 21:00 89 24 97 03/29/17 20:55 91 19 96 03/29/17 20:50 94 21 96 03/29/17 20:45 97 22 96 03/29/17 20:40 90 22 97 03/29/17 20:35 97 22 96 03/29/17 20:31 158/81 03/29/17 20:30 96 20 98 03/29/17 20:25 90 31 95 03/29/17 20:20 92 25 96 03/29/17 20:15 95 22 97 03/29/17 20:11 151/81 03/29/17 20:10 95 21 96 03/29/17 20:05 97 Nasal Cannula 2.0 03/29/17 20:05 100 23 97 03/29/17 20:00 93 26 97 03/29/17 19:59 103 03/29/17 19:48 160/102 03/29/17 19:37 100 03/29/17 19:37 36.7 110 24 163/113 100 Nebulizer 6.0 Physical Exam Vital signs reviewed. General: Well-appearing female, in no significant distress. HEENT: No scleral icterus, PERRLA, neck supple. JVD noted. Atraumatic. Cardiovascular: Slightly tachycardic and irregular. Pulmonary: Rhonchorous breath sounds bilaterally Abdomen: Soft, nontender, nondistended, positive bowel sounds. Musculoskeletal: Atraumatic,. Minimal peripheral edema. Neurologic: Patient awake alert and oriented x 3, full strength in all 4 extremities. Cranial nerves 2 through 12 grossly intact. Skin: Warm, dry, no rash Medical Decision & Procedures ER Provider Diagnostic Interpretation: Radiology results as stated below per my review and radiologist interpretation: CHEST ONE VIEW PORTABLE FINDINGS: The heart is enlarged. There is mild central vascular prominence without evidence of overt failure. There is no focal pulmonary consolidation. There are no pleural effusions.[ IMPRESSION: Mild cardiomegaly. No evidence of focal pulmonary consolidation Electronically signed by: Sathish Curran M.D. Laboratory Results Test 03/29/17 19:00 03/29/17 19:57 Activated Partial Thromboplast Time 34.8 SECONDS (21.0-31.0) Partial Thromboplastin Ratio 1.3 Direct Bilirubin 0.3 mg/dl (0-0.2) Total Creatine Kinase 106 U/L (26-192) Creatine Kinase MB 3.1 ng/ml (0.5-3.6) Creatine Kinase MB Ratio 2.9 (0-3.0) Bedside Troponin I < 0.030 ng/ml (0-0.045) Laboratory results per my review. Medications Administered Medications (Trade) Dose Ordered Sig/Mis Route Start Time Stop Time Status Last Admin Dose Admin Nitroglycerin (Nitroglycerin 2% Oint) 1 inch NOW ONCE EXT 03/29/17 20:00 03/29/17 20:01 DC 03/29/17 20:07 1 INCH Furosemide (Lasix Inj) 40 mg NOW STAT IV 03/29/17 19:49 03/29/17 19:51 DC 03/29/17 20:07 40 MG ECG Indication: SOB/dyspnea Rate (beats per minute): 103 Rhythm: atrial fibrillation (with RVR) Findings: no acute ischemic change, no ectopy, other (previous septal infarct) ED Course 1942: Past medical records reviewed. The patient was evaluated in room A4B. A complete history and physical examination was performed. 1948: Ordered Lasix Inj 40 mg IV. 1999: Ordered Nitroglycerin 1 inch EXT. 2132: I reviewed the patient's case with Dr. Villar. He will evaluate the patient for further management. Medical Decision Differential diagnosis: Etiologies such as infections, reactive airway disease, pneumonia, pneumothorax , COPD, CHF, cardiac ischemia, pulmonary embolism, musculoskeletal, gastrointestinal, as well as others were entertained. This patient was evaluated and appeared to be in no significant distress. Patient did have an increased work of breathing. She is placed on nasal cannula oxygen. She was given nitroglycerin ointment to the anterior chest wall due to hypertension and clinically appear fluid overload. Chest x-ray confirms this finding. The patient was given IV Lasix. Patient's laboratory work reveals an elevated BNP. On reevaluation the patient was feeling much improved however she does desaturate on room air when ambulatory. Breath sounds are improved however still rhonchorous. She was advised of the findings. Patient was evaluated by the hospitalist service for admission and further management. Medication Reconcilliation Current Medication List: was personally reviewed by me Blood Pressure Screening Patient's blood pressure: Elevated blood pressure Blood pressure disposition: Referred to PCP (further evaluated by hospitalist) Consults Time Called: 2125 Consulting Physician: Dr. Villar Returned Call: 2132 I reviewed the patient's case with Dr. Villar. He will evaluate the patient for further management. Impression Primary Impression: Congestive heart failure Scribe Attestation The scribe's documentation has been prepared under my direction and personally reviewed by me in its entirety. I confirm that the note above accurately reflects all work, treatment, procedures, and medical decision making performed by me. Departure Information Dispostion Being Evaluated By Hospitalist Referrals No Doctor, Assigned (PCP) Patient Instructions My [facility]
[2017-03-29] MEDS ORDERED: CARV25TA PO (19:54)
[2017-03-29] MEDS ORDERED: CARV12.52 PO (19:54)
[2017-03-29] MEDS ORDERED: LSX40 PO (19:54)
[2017-03-29] MEDS ORDERED: PRED20TA PO (19:54)
[2017-03-29] MEDS ORDERED: PRMVC TOP (19:54)
[2017-03-29] MEDS ORDERED: POTA20TA13 PO (19:54)
[2017-03-29] MEDS ORDERED: FRS/40 PO (19:54)
[2017-03-29] MEDS ORDERED: AMOX875T PO (19:54)
[2017-03-29] MEDS ORDERED: WARF-280 PO (19:57)
[2017-03-29] MEDS ORDERED: WARF2.5T8 PO (19:57)
[2017-03-29] MEDS ORDERED: NITROGLYCERIN OINT 2% 1GM PACKET EXT ONE (20:00)
[2017-03-29 20:09] LABS: HEMATOCRIT 39.4 % (37-47); HEMOGLOBIN 13.1 g/dL (12.0-16.0); MEAN CELL VOLUME 95.9 fL (80-100); MEAN CORPUSCULAR HEMOGLOBIN 31.9 pg (25-34); MEAN CORPUSCULAR HGB CONC 33.2 g/dl (32-36); MEAN PLATELET VOLUME 10.9 fL (7.4-10.4); PLATELET COUNT 123 K/uL (130-400); RED CELL DISTRIBUTION WIDTH CV 14.8 % (11.5-14.5); RED CELL DISTRIBUTION WIDTH SD 51.7 fL (36.4-46.3); WHITE BLOOD COUNT 8.75 K/uL (4.8-10.8)
[2017-03-29 20:18] LABS: ALBUMIN 3.6 gm/dl (3.4-5.0); CALCIUM 8.5 mg/dl (8.5-10.1); CREATININE 1.58 mg/dl (0.60-1.20); POTASSIUM 4.1 mmol/L (3.5-5.1)
--- NOTE | 2017-03-29 20:18 | DIAGNOSTIC IMAGING REPORT ---
CHEST ONE VIEW PORTABLE CLINICAL HISTORY: CHF, cough COMPARISON STUDY: 12/01/2016 FINDINGS: The heart is enlarged. There is mild central vascular prominence without evidence of overt failure. There is no focal pulmonary consolidation. There are no pleural effusions.[ IMPRESSION: Mild cardiomegaly. No evidence of focal pulmonary consolidation Electronically signed by: Sathish Curran M.D. 03/29/2017 8:16 PM Dictated Date/Time: 03/29/2017 8:16 PM
[2017-03-29 20:21] LABS: INR 2.7 (0.9-1.1); PTT PATIENT 34.8 SECONDS (21.0-31.0)
[2017-03-29 20:23] LABS: CKMB 3.1 ng/ml (0.5-3.6); TOTAL PROTEIN 7.4 gm/dl (6.4-8.2)
[2017-03-29 20:59] LABS: BASO % 0.9 %; BASO ABS # 0.08 K/uL (0-0.2); EOS % 0.1 %; EOS ABS # 0.01 K/uL (0-0.5); IG# 0.02 K/uL (0.00-0.02); LYMPH % 13.6 %; LYMPH ABS # 1.19 K/uL (1.2-3.4); MONO % 13.7 %; NEUT % 71.5 %; NEUT ABS # 6.25 K/uL (1.4-6.5)
--- NOTE | 2017-03-29 23:43 | History and Physical ---
History & Physical Date & Time of Service: Mar 29, 2017 at 23:39 Chief Complaint: SOB Primary Care Physician: Marika Thomas D.O. History of Present Illness Source: patient, family This is an 86 year old Female who was last admitted to [facility] for evaluation of shortness of breath and was evaluated at that time with cardiology service with primary diagnosis of diastolic heart failure with atrial fibrillation in November 2016. Patient returns to the ED on 03/29/2017 with complaints of worsening dyspnea. As per ED physician, patient received 500 ml of IV fluids on the ambulance but in her clinical assessment, patient likely having congestive heart failure diagnosis and received 40 mg IV Lasix in the ED. Patient seen and evaluated subsequently by internal medicine hospitalist physician. Patient on nasal cannula. She expressed concern whether she was having more shortness of breath because of inadequate fluid restriction however based on the the clinical assessment and physical exam, it is difficult to discern whether was having overt congestive heart failure. Patient denied gross swelling of lower extremities. No JVD on physical exam. Lung auscultation not completely clear but good air entry. Patient's BNP was over 9000 but the chest X ray performed in the ED did not have overt pulmonary congestion. Past Medical/Surgical History Medical Problems: (1) Afib Status: Chronic (2) CKD (chronic kidney disease), stage III Status: Chronic (3) Diastolic CHF, chronic Status: Chronic (4) HTN (hypertension) Status: Chronic (5) Lumbar disc disease Status: Chronic (6) Osteoarthritis Status: Chronic Family History Diabetes mellitus Heart disease Hypertension Social History Smoking Status: Never Smoker Drug Use: none Marital Status: single Housing status: lives alone Occupational Status: retired Multi-Drug Resistant Organisms History of MDRO: No Allergies Coded Allergies: Naproxen (Verified Adverse Reaction, Intermediate, HYPERTENSION, 11/30/16) Ramipril (Verified Adverse Reaction, Intermediate, DIZZY, 11/30/16) Tizanidine (Verified Adverse Reaction, Intermediate, HIP PAIN, 11/30/16) Tramadol (Verified Adverse Reaction, Intermediate, "WOOZY", 11/30/16) Home Medications Scheduled Allopurinol (Zyloprim), 100 MG PO BID Amoxicillin & Pot Clavulanate (Augmentin 875-125 mg), 1 TAB PO BID Aspirin (Aspirin), 81 MG PO DAILY Calcium Carbonate-Vitamin D (Calcium 600+D), 1 TAB PO BID Carvedilol (Coreg), 25 MG PO QAM Carvedilol (Coreg), 12.5 MG PO QPM Cholecalciferol (Vitamin D 1000 Unit), 1,000 INTER.UNIT PO DAILY Estrogens, Conjugated (Premarin), 1 APPLN TOP MWF Furosemide (Furosemide), 20 MG PO Q2D Furosemide (Lasix), 40 MG PO Q2D Isosorbide Mononitrate (Isosorbide Mononitrate ER), 30 MG PO DAILY Levothyroxine Sodium (Synthroid), 88 MCG PO QAM Omeprazole (Prilosec), 20 MG PO DAILY Potassium Ext Rel (Klor-Con), 20 MEQ PO BID Prednisone (Prednisone), 40 MG PO UD Simvastatin (Zocor), 20 MG PO QPM Warfarin Sod (Jantoven), 5 MG PO 5XWK Warfarin Sodium (Warfarin Sodium), 2.5 MG PO MON&FRI Review of Systems Constitutional: No fever Eyes: No worsening of vision, No eye pain ENT: No hearing loss, No unusual epistaxis, No nasal symptoms, No sore throat, No tinnitus, No dental problems, No trouble swallowing, No problem reported Respiratory: + shortness of breath, No cough, No sputum, No wheezing, No hemoptysis Cardiovascular: No chest pain, No edema, No palpitations Abdomen: No pain, No nausea, No vomiting, No diarrhea, No constipation, No GI bleeding, No problem reported Musculoskeletal: No joint pain, No muscle pain, No swelling, No calf pain, No problem reported Genitourinary - Female: No dysuria Neurologic: No numbness/tingling Psychiatric: No substance abuse Endocrine: No fatigue Integumentary: No rash Physical Exam Vital Signs Date Time Temp Pulse Resp B/P (MAP) Pulse Ox O2 Delivery O2 Flow Rate FiO2 03/29/17 23:11 91 03/29/17 23:00 89 16 163/88 97 Nasal Cannula 2.0 03/29/17 21:15 98 23 97 03/29/17 21:10 105 24 96 03/29/17 21:05 88 22 148/85 87 Room Air 03/29/17 21:01 161/91 03/29/17 21:00 89 24 97 03/29/17 20:55 91 19 96 03/29/17 20:50 94 21 96 1/9/18 20:45 97 22 96 03/29/17 20:40 90 22 97 03/29/17 20:35 97 22 96 03/29/17 20:31 158/81 03/29/17 20:30 96 20 98 03/29/17 20:25 90 31 95 03/29/17 20:20 92 25 96 03/29/17 20:15 95 22 97 03/29/17 20:11 151/81 03/29/17 20:10 95 21 96 03/29/17 20:05 97 Nasal Cannula 2.0 03/29/17 20:05 100 23 97 03/29/17 20:00 93 26 97 03/29/17 19:59 103 03/29/17 19:48 160/102 03/29/17 19:37 100 03/29/17 19:37 36.7 110 24 163/113 100 Nebulizer 6.0 General Appearance: no apparent distress Head: normocephalic Eyes: normal inspection, EOMI, sclerae normal ENT: normal ENT inspection, hearing grossly normal, pharynx normal Neck: supple, no JVD, trachea midline Respiratory/Chest: chest non-tender, lungs clear, no respiratory distress, no accessory muscle use, + pertinent finding (generally good air entry, possible less breath sound of right lung eli compare to left lung eli) Cardiovascular: regular rate, rhythm, no edema, no JVD, + pertinent finding ( atrial fibrillation on EKG) Abdomen/GI: normal bowel sounds, non tender, soft, no organomegaly Back: normal inspection, normal range of motion Extremities/Musculoskelatal: normal inspection, no calf tenderness, no pedal edema, normal range of motion, non-tender Neurologic/Psych: no motor/sensory deficits, alert, oriented x 3 Diagnostics Laboratory Results Results Past 24 Hours Test 03/29/17 19:00 03/29/17 19:57 Range/Units White Blood Count 8.75 4.8-10.8 K/uL Red Blood Count 4.11 4.2-5.4 M/uL Hemoglobin 13.1 12.0-16.0 g/dL Hematocrit 39.4 37-47 % Mean Corpuscular Volume 95.9 80-100 fL Mean Corpuscular Hemoglobin 31.9 25-34 pg Mean Corpuscular Hemoglobin Concent 33.2 32-36 g/dl Platelet Count 123 130-400 K/uL Mean Platelet Volume 10.9 7.4-10.4 fL Neutrophils (%) (Auto) 71.5 % Lymphocytes (%) (Auto) 13.6 % Monocytes (%) (Auto) 13.7 % Eosinophils (%) (Auto) 0.1 % Basophils (%) (Auto) 0.9 % Neutrophils # (Auto) 6.25 1.4-6.5 K/uL Lymphocytes # (Auto) 1.19 1.2-3.4 K/uL Monocytes # (Auto) 1.20 0.11-0.59 K/uL Eosinophils # (Auto) 0.01 0-0.5 K/uL Basophils # (Auto) 0.08 0-0.2 K/uL RDW Standard Deviation 51.7 36.4-46.3 fL RDW Coefficient of Variation 14.8 11.5-14.5 % Immature Granulocyte % (Auto) 0.2 % Immature Granulocyte # (Auto) 0.02 0.00-0.02 K/uL Prothrombin Time 27.5 9.0-12.0 SECONDS Prothromb Time International Ratio 2.7 0.9-1.1 Activated Partial Thromboplast Time 34.8 21.0-31.0 SECONDS Partial Thromboplastin Ratio 1.3 Sodium Level 136 136-145 mmol/L Potassium Level 4.1 3.5-5.1 mmol/L Chloride Level 101 98-107 mmol/L Carbon Dioxide Level 29 21-32 mmol/L Anion Gap 6.0 3-11 mmol/L Blood Urea Nitrogen 30 7-18 mg/dl Creatinine 1.58 0.60-1.20 mg/dl Est Creatinine Clear Calc Drug Dose 26.7 ml/min Estimated GFR () 34.5 Estimated GFR (Non- 29.7 BUN/Creatinine Ratio 19.1 10-20 Random Glucose 146 70-99 mg/dl Calcium Level 8.5 8.5-10.1 mg/dl Magnesium Level 1.8 1.8-2.4 mg/dl Total Bilirubin 1.1 0.2-1 mg/dl Direct Bilirubin 0.3 0-0.2 mg/dl Aspartate Amino Transf (AST/SGOT) 26 15-37 U/L Alanine Aminotransferase (ALT/SGPT) 22 12-78 U/L Alkaline Phosphatase 67 45-117 U/L Total Creatine Kinase 106 26-192 U/L Creatine Kinase MB 3.1 0.5-3.6 ng/ml Creatine Kinase MB Ratio 2.9 0-3.0 Pro-B-Type Natriuretic Peptide 9759 0-1800 pg/ml Total Protein 7.4 6.4-8.2 gm/dl Albumin 3.6 3.4-5.0 gm/dl Bedside Troponin I < 0.030 0-0.045 ng/ml Diagnostic Radiology CXR: The heart is enlarged. There is mild central vascular prominence without evidence of overt failure. There is no focal pulmonary consolidation. There are no pleural effusions EKG EKG 103 bpm atrial fibrillation Impression Assessment and Plan This is an 86 year old Female who was last admitted to [facility] for evaluation of shortness of breath and was evaluated at that time with cardiology service with primary diagnosis of diastolic heart failure with atrial fibrillation in November 2016 and returns with symptoms possibly from similar etiology possible CHF In assessment in the ED, patient status post Lasix 40 mg IV BNP 9759 and suggestive of fluid overload such as CHF however ED chest X ray without overt congestion of infiltrates Continue Lasix 40 mg IV daily Diet with fluid restriction There may be a possibility that this is not a systolic heart failure but an exacerbation of diastolic heart failure Echocardiogram ordered Repeat chest X ray on 03/30/17 Continue home dose simvastatin and aspirin Atrial Fibrillation heart rate mildly tachycardic in the ED is at this time in acceptable ranges under 110 bpm monitor patient on telemetry continue carvedilol 12.5 mg BID was bradycardic on November 2016 when on higher does of carvedilol continue warfarin, INR is 2.7 on admission, monitor INR home warfarin regimen is 2.5 mg daily on Tuesday and Tuesday. Is 5 mg daily on other days of the week History of CKD monitor creatinine, expect creatinine to increase with Lasix use Hypothyroidism Continue home dose Levothyroxine Check TSH Gout history Continue home dose allopurinol DVT ppx: on coumadin Allergies: to tramadol and naproxen but patient unclear of reactions Disposition Monitor on Telemetry Patient follows with [facility] cardiology as outpatient ([facility]) Patient follows with Dr. Albright as primary care doctor Full Code Alex is named Ms. Graves [phone] Level of Care Telemetry Resuscitation Status FULL RESUSCITATION VTE Prophylaxis VTE Risk Assessment Done? Y/N: Yes Risk Level: Moderate
[2017-03-30] VITALS (12 sets, daily range): BP systolic 131–175; BP diastolic 58–115; PULSE 62–122; TEMP 36.3–36.7; O2SAT 92–100; Ht 165.1 cm; Wt 68.9 kg
[2017-03-30] MEDS: LEVOTHYROXINE 88 MCG TAB PO SCH (05:27)
[2017-03-30] MEDS ORDERED: HEPARIN SOD 5000 UNIT/0.5 ML CARP SQ SCH (06:00)
[2017-03-30 06:55] LABS: BASO % 0.7 %; BASO ABS # 0.06 K/uL (0-0.2); EOS % 0.2 %; EOS ABS # 0.02 K/uL (0-0.5); HEMATOCRIT 39.7 % (37-47); IG# 0.02 K/uL (0.00-0.02); LYMPH % 11.2 %; LYMPH ABS # 0.98 K/uL (1.2-3.4); MEAN CELL VOLUME 97.1 fL (80-100); MEAN CORPUSCULAR HEMOGLOBIN 31.8 pg (25-34); MEAN CORPUSCULAR HGB CONC 32.7 g/dl (32-36); MEAN PLATELET VOLUME 11.4 fL (7.4-10.4); MONO % 13.7 %; NEUT ABS # 6.45 K/uL (1.4-6.5); PLATELET COUNT 120 K/uL (130-400); RED CELL DISTRIBUTION WIDTH CV 14.9 % (11.5-14.5); WHITE BLOOD COUNT 8.73 K/uL (4.8-10.8)
[2017-03-30 07:02] LABS: INR 2.7 (0.9-1.1)
[2017-03-30 07:32] LABS: ALBUMIN 3.6 gm/dl (3.4-5.0); CALCIUM 8.3 mg/dl (8.5-10.1); CREATININE 1.35 mg/dl (0.60-1.20); POTASSIUM 3.2 mmol/L (3.5-5.1)
[2017-03-30 08:00] LABS: TOTAL PROTEIN 7.3 gm/dl (6.4-8.2)
[2017-03-30] MEDS: ISOSORBIDE MONONITRATE 30 MG TABCR PO SCH (08:43)
[2017-03-30] MEDS: CHOLECALCIFEROL 1000 INTER.UNIT TAB PO SCH (08:43)
[2017-03-30] MEDS: ALLOPURINOL 100 MG TAB PO SCH ×2 (08:43→20:43)
[2017-03-30] MEDS: PANTOprazole SOD 40 MG TAB PO SCH (08:43)
[2017-03-30] MEDS: CALCIUM 600MG + VIT D 400 IU TAB PO SCH ×2 (08:43→20:42)
[2017-03-30] MEDS: POTASSIUM CHLORIDE 20 MEQ TABCR PO SCH ×2 (08:44→20:42)
[2017-03-30] MEDS: ASPIRIN 81 MG ECTAB PO SCH (08:44)
[2017-03-30] MEDS ORDERED: FUROSEMIDE INJ 40 MG in SYRINGE 0 ML IV SCH (09:00)
[2017-03-30] MEDS ORDERED: POTASSIUM CHLORIDE 10 MEQ TABCR PO ONE (11:15)
[2017-03-30] MEDS ORDERED: CARVEDILOL 25 MG TAB PO ONE (11:15)
--- NOTE | 2017-03-30 11:39 | DIAGNOSTIC IMAGING REPORT ---
CHEST ONE VIEW PORTABLE CLINICAL HISTORY: chf dyspnea COMPARISON STUDY: 03/29/2017 FINDINGS: Mild stable cardiomegaly. Mild decrease in prominence of pulmonary vasculature. Improved aeration of the lung bases. There are no consolidative infiltrates at the current time. IMPRESSION: Improved exam with minimal residual prominence of pulmonary vasculature. No focal infiltrate. The above report was generated using voice recognition software. It may contain grammatical, syntax or spelling errors. Electronically signed by: Alen Mar M.D. 03/30/2017 11:38 AM Dictated Date/Time: 03/30/2017 11:37 AM
--- NOTE | 2017-03-30 11:44 | Cardiology Consultation ---
Cardiology Consultation Date of Consultation: Mar 30, 2017 Requesting Physician: Kesha Attending Chute Worker: Tate (Alen Hoang PA-C) History of Present Illness Ms. Garcia is a very pleasant 86 year old female who is being seen at the request of Dr. Rebolledo. Reasons for consultation include atrial fibrillation with a rapid ventricular response and diastolic congestive heart failure Ms. Garcia was seen by the undersigned on March 22, 2017, presenting at that time with compensated diastolic congestive heart failure signs and symptoms. Shortly thereafter she developed what she describes as cold/flu like symptoms including a cough productive of clear slimy mucous though very difficult to expectorate, head and chest congestion, increased shortness of breath and intermittent wheezing. Notes decreased appetite, weight loss. Denies fevers or chills. Denies nausea, vomiting or diarrhea. No rash. The patient was seen by Internal Medicine on 03/28/2017 and diagnosed with acute complicated bronchitis for which she was prescribed a course of Augment and Prednisone. Due to persistent, progressive symptoms she presented to the [facility] ER on 03/29/2017 and was seen by Dr. Mata. She initially received 500 ml of IV fluids then was given 40 mg IV Lasix in the ED per documentation. Chest x-ray showed an enlarged heart with mild central vascular prominence, without evidence of overt failure, focal pulmonary consolidation, or pleural effusions. She was admitted to telemetry which reveals her chronic atrial fibrillation though with a rapid ventricular response. She received another 40 mg of IV furosemide this morning without improvement in the above mentioned complaints. Oxygen saturation has been around 93 to 95%. (Alen Hoang PA-C) Past Medical/Surgical History Problem List: Chronic atrial fibrillation Chronic Coumadin anticoagulation History of paroxysmal atrial tachycardia. Chronic diastolic heart failure. Valvular heart disease Preserved LV systolic funcion Stage 3 chronic kidney disease. Hyperlipidemia. Hypertension. GERD. Hypothyroidism Gout Recurrent UTI Esophageal reflux Osteoarthritis Irritable bowel syndrome Vitamin D deficiency Lumbar disc disease Left hip replacement Cholecystectomy (Alen Hoang PA-C) Family History Diabetes mellitus Heart disease Hypertension (Alen Hoang PA-C) Diabetes mellitus Heart disease Hypertension (Moo Ybarra DO) Social History Smoking Status: Never Smoker Drug Use: none Marital Status: single Housing Status: lives alone Occupation: retired (Alen Hoang PA-C) Review Of Systems General: Weight loss. No fever or chills. HEENT: + headache. + head congestion. no head trauma. Cardiovascular: + Palpitations. + Orthopnea. No chest pain. No PND. No near syncope or syncope. Pulmonary: + Cough. + Chest congestion. + Wheeze. No hemoptysis. Gastrointestinal: No nausea, vomiting, or diarrhea. Skin: No rash. Musculoskeletal: See above. Neurological: Denies history of TIA, CVA, or seizures. Complete review of systems is as stated above, negative, or noncontributory. (Alen Hoang PA-C) Allergies Coded Allergies: Naproxen (Verified Adverse Reaction, Intermediate, HYPERTENSION, 11/30/16) Ramipril (Verified Adverse Reaction, Intermediate, DIZZY, 11/30/16) Tizanidine (Verified Adverse Reaction, Intermediate, HIP PAIN, 11/30/16) Tramadol (Verified Adverse Reaction, Intermediate, "WOOZY", 11/30/16) Medications Reported Home Medications Medications Dose Route/Sig Max Daily Dose Days Date Category Dose Instructions Jantoven (Warfarin Sodium) 2.5 Mg Tab 5 Mg PO [id number] 03/29/17 Reported Warfarin Sodium 2.5 Mg Tab 2.5 Mg PO MON&FRI 03/29/17 Reported Premarin (Estrogens, Conjugated) 14 Appln/30 Gm Cr 1 Appln TOP MWF 03/29/17 Reported Coreg (Carvedilol) 12.5 Mg Tab 12.5 Mg PO QPM 03/29/17 Reported Coreg (Carvedilol) 25 Mg Tab 25 Mg PO QAM 03/29/17 Reported Lasix (Furosemide) 40 Mg Tab 40 Mg PO Q2D 03/29/17 Reported ALTERNATE WITH 20 MEQ DAILY Furosemide 40 Mg Tab 20 Mg PO Q2D 03/29/17 Reported Prednisone 20 Mg Tab 40 Mg PO UD 03/29/17 Reported DAILY FOR 5 DAYS Augmentin 875-125 mg (Amoxicillin & Pot Clavulanate) 1 Tab Tab 1 Tab PO BID 03/29/17 Reported Isosorbide Mononitrate ER (Isosorbide Mononitrate) 30 Mg Tabcr 30 Mg PO DAILY 11/30/16 Reported Synthroid (Levothyroxine Sodium) 88 Mcg Tab 88 Mcg PO QAM 11/21/16 Reported Klor-Con (Potassium Chloride) 20 Meq Tabcr 20 Meq PO BID 10/24/15 Reported Calcium 600+D (Calcium Carbonate-Vitamin D) 1 Tab Tab 1 Tab PO BID 07/22/14 Reported Vitamin D 1000 Unit (Cholecalciferol) 1,000 Unit Cap 1,000 Inter.unit PO DAILY 07/22/14 Reported Aspirin 81 Mg Tab 81 Mg PO DAILY 07/22/14 Reported Zyloprim (Allopurinol) 100 Mg Tab 100 Mg PO BID 07/22/14 Reported Zocor (Simvastatin) 20 Mg Tab 20 Mg PO QPM 07/22/14 Reported Prilosec (Omeprazole) 20 Mg Capcr 20 Mg PO DAILY 07/22/14 Reported (Alen Hoang PA-C) Physical Exam Vital Signs (Last 8hrs): Last 8 Hrs Date Time Temp Pulse Resp B/P (MAP) Pulse Ox O2 Delivery O2 Flow Rate FiO2 03/30/17 08:30 109 24 156/95 (115) 95 Nasal Cannula 3.0 03/30/17 07:40 36.4 122 28 175/115 (135) 93 Nasal Cannula 2.0 03/30/17 04:00 Nasal Cannula 2.0 03/30/17 03:57 36.4 106 19 157/83 (107) 97 Nasal Cannula 2.0 General: A&Ox3. Chronically ill. Acute ill. Tachypneic. HEENT: Normocephalic, atraumatic. PER. Mucous membranes are dry. Neck: +JVD. + HJR. ? Left carotid bruit versus transmitted systolic murmur. Cardiovascular: Irregularly irregular around 110 bpm. Soft systolic murmur at the left sternal border. Pulmonary: Bibasilar rales. Faint left upper expiratory wheeze. No rhonchi. Abdomen: +BS. Soft. Nontender. Extremities: No clubbing. No cyanosis. Minimal distal right lower extremity edema. Mild lymphedematous changes. Varicosities. +2 pedal pulses bilaterally. Skin: Warm and dry Neuro: No focal deficits. Psychiatric: Normal affect. (Alen Hoang PA-C) Data Last 24 Hours Test 03/29/17 19:00 03/29/17 19:57 03/30/17 06:13 White Blood Count 8.75 K/uL 8.73 K/uL Red Blood Count 4.11 M/uL 4.09 M/uL Hemoglobin 13.1 g/dL 13.0 g/dL Hematocrit 39.4 % 39.7 % Mean Corpuscular Volume 95.9 fL 97.1 fL Mean Corpuscular Hemoglobin 31.9 pg 31.8 pg Mean Corpuscular Hemoglobin Concent 33.2 g/dl 32.7 g/dl Platelet Count 123 K/uL 120 K/uL Mean Platelet Volume 10.9 fL 11.4 fL Neutrophils (%) (Auto) 71.5 % 74.0 % Lymphocytes (%) (Auto) 13.6 % 11.2 % Monocytes (%) (Auto) 13.7 % 13.7 % Eosinophils (%) (Auto) 0.1 % 0.2 % Basophils (%) (Auto) 0.9 % 0.7 % Neutrophils # (Auto) 6.25 K/uL 6.45 K/uL Lymphocytes # (Auto) 1.19 K/uL 0.98 K/uL Monocytes # (Auto) 1.20 K/uL 1.20 K/uL Eosinophils # (Auto) 0.01 K/uL 0.02 K/uL Basophils # (Auto) 0.08 K/uL 0.06 K/uL RDW Standard Deviation 51.7 fL 53.0 fL RDW Coefficient of Variation 14.8 % 14.9 % Immature Granulocyte % (Auto) 0.2 % 0.2 % Immature Granulocyte # (Auto) 0.02 K/uL 0.02 K/uL Prothrombin Time 27.5 SECONDS 27.5 SECONDS Prothromb Time International Ratio 2.7 2.7 Activated Partial Thromboplast Time 34.8 SECONDS Partial Thromboplastin Ratio 1.3 Sodium Level 136 mmol/L 139 mmol/L Potassium Level 4.1 mmol/L 3.2 mmol/L Chloride Level 101 mmol/L 101 mmol/L Carbon Dioxide Level 29 mmol/L 31 mmol/L Anion Gap 6.0 mmol/L 7.0 mmol/L Blood Urea Nitrogen 30 mg/dl 27 mg/dl Creatinine 1.58 mg/dl 1.35 mg/dl Est Creatinine Clear Calc Drug Dose 26.7 ml/min 30.4 ml/min Estimated GFR () 34.5 41.7 Estimated GFR (Non- 29.7 36.0 BUN/Creatinine Ratio 19.1 19.9 Random Glucose 146 mg/dl 99 mg/dl Calcium Level 8.5 mg/dl 8.3 mg/dl Magnesium Level 1.8 mg/dl 1.8 mg/dl Total Bilirubin 1.1 mg/dl 1.1 mg/dl Direct Bilirubin 0.3 mg/dl Aspartate Amino Transf (AST/SGOT) 26 U/L 26 U/L Alanine Aminotransferase (ALT/SGPT) 22 U/L 21 U/L Alkaline Phosphatase 67 U/L 67 U/L Total Creatine Kinase 106 U/L Creatine Kinase MB 3.1 ng/ml Creatine Kinase MB Ratio 2.9 Pro-B-Type Natriuretic Peptide 9759 pg/ml 8163 pg/ml Total Protein 7.4 gm/dl 7.3 gm/dl Albumin 3.6 gm/dl 3.6 gm/dl Bedside Troponin I < 0.030 ng/ml Globulin 3.7 gm/dl Albumin/Globulin Ratio 1.0 Thyroid Stimulating Hormone (TSH) 1.400 uIu/ml April 09, 2016 TTE Interpretation Summary (as per Dr. Mejia): Normal LV chamber size with midl concentric LVH. Normal LV systolic function without regional wall motion abnormality. Calculated LV ejection Fraction = 57% ( biplane method of discs). Grade II diastolic dysfunction. Mild aortic valve sclerosis without stenosis. Mild aortic regrugtiation. Mild miitral regurgitation. Mild tricuspid regurgitation. Mild biatrial enlargement October 2016 Holter (as per Dr. Avitia) (On Coreg 25 mg twice a day): The patient was scanned for total of 23 hours and 32 minutes. The telemetry is of good quality. The indication for the study is shortness of breath and heart palpitations. The predominant rhythm is atrial fibrillation with an average heart rate is 71 beats per minute. The longest R to R interval was 1.96 seconds. There were rare PVCs. Three brief runs of idioventricular rhythm with the longest being 11 beats. No symptoms recorded by the patient. CXR: See above. EKG dated and timed 29-MAR-2017 @ 20:02:16: Poor data quality, interpretation may be adversely affected. Atrial fibrillation with rapid ventricular response. Septal infarct (cited on or before 02-DEC-2016). EKG dated and timed 30-MAR-2017 @ 07:37:34: Poor data quality, interpretation may be adversely affected. Atrial fibrillation with rapid ventricular response. Septal infarct , age undetermined. ST & T wave abnormality, consider lateral ischemia. Telemetry: Atrial fibrillation with a rapid ventricular response. (Alen Hoang PA-C) Assessment & Plan There may be an element of acute decompensated diastolic congestive heart failure however the symptoms that brought her to the ER are most suggestive of an acute pulmonary illness, acute bronchitis versus other. Recommend further pulmonary evaluation via the Hospitalist. Her ventricular response to the chronic atrial fibrillation is elevated, likely secondary to her acute pulmonary illness and withdrawal of chronic carvedilol therapy (typically taking 25 mg in the AM and 12.5 mg in the PM). Carvedilol will be resumed for heart rate and blood pressure control. IV furosemide will be continued as prescribed for now. Additional Potassium will be supplemented given observed hypokalemia. Recent INR's have been therapeutic with recommendations to continue chronic Coumadin anticoagulation. Further recommendations pending the above, evaluation by Dr. Ybarra, and her ongoing hospitalization. (Alen Hoang PA-C) Cardiology attending physician: Patient seen and examined at the bedside. Complains of cough and shortness of breath prior to admission. Expiratory wheezing noted on exam. She is lying flat without dyspnea. No edema, orthopnea, or paroxysmal nocturnal dyspnea reported. Denies fever, chills, or sick contacts. PE: VSS. Gen: NAD, awake and alert, however, poor historian. Heart: Irregular, tachycardic, no murmur. Lung +exp wheeze. Ext: no edema. A/P: Agree with above PAC history, physical exam, assessment and plan. Patient admitted with acute decompensated diastolic heart failure. She has received 2 doses of intravenous Lasix with mild to moderate diuresis. Her pulmonary symptoms have not changed significantly. She continues to have cough and expiratory wheezing on exam. There is no orthopnea, PND, or edema. I suspect there is an underlying pulmonary infectious process currently possibly bronchitis. There is no consolidation or pulmonary edema on her chest x-ray. Lasix will be placed on hold pending review of repeat lab testing in a.m. Beta josy has been restarted with improvement in heart rate. We will continue to follow closely during hospitalization. Jose Alejandro Ybarra DO, [facility] (Moo Ybarra DO)
[2017-03-30 13:24] LABS: INFLUENZA B ANTIGEN Neg for Influ B (NEG)
[2017-03-30 14:07] LABS: INFLUENZA A PCR Neg for Influ A (NEG); INFLUENZA B PCR Neg for Influ B (NEG)
--- NOTE | 2017-03-30 14:40 | Progress Note ---
Internal Med Progress Note Date of Service: Mar 30, 2017. Provider Documentation: SUBJECTIVE: The patient was seen and examined Remains SOB with increased Heart rate this AM Received 40 mg of Lasix this AM OBJECTIVE: Vital Signs-as noted below Exam: General-Moderate distress at est Eyes-normal ENT-normal Neck-supple Lungs-Decreased breath sound bilaterally Minimal wheezing and minimal crackles at the bases Heart-Irregular Abdomen-Benign Extremities-Trace edema bilaterally Neuro-AAOx3 Lab data as noted below. ASSESSMENT & PLAN: This is an 86 year old Female who was last admitted to [facility] for evaluation of shortness of breath and was evaluated at that time with cardiology service with primary diagnosis of diastolic heart failure with atrial fibrillation in November 2016 and returns with symptoms possibly from similar etiology Acute Diastolic CHF In assessment in the ED, patient status post Lasix 40 mg IV BNP 9759 and suggestive of fluid overload such as CHF however ED chest X ray without overt congestion of infiltrates Continue Lasix 40 mg IV daily Diet with fluid restriction Clinically a little better Atrial Fibrillation with RVR Heart rate mildly tachycardic in the ED Appreciate cardiology input and recommendation Continue warfarin, INR is 2.7 on admission, monitor INR Increase SOB Flu negative ,No Pneumonia Minimal wheezing and decreased breath sound bilaterally May have component of Obstructive Lung disease Will try Neba and small dose of Steroid History of CKD Monitor creatinine, expect creatinine to increase with Lasix use Hypothyroidism Continue home dose Levothyroxine Check TSH Gout history Continue home dose allopurinol DVT ppx: on coumadin Allergies: to tramadol and naproxen but patient unclear of reactions Disposition Monitor on Telemetry Patient follows with [facility] cardiology as outpatient ([facility]) Patient follows with Dr. Albright as primary care doctor Full Code Nijefferson is named Ms. Graves [phone] Vital Signs: Date Time Temp Pulse Resp B/P (MAP) Pulse Ox O2 Delivery O2 Flow Rate FiO2 03/30/17 12:10 113 163/101 (121) 03/30/17 11:24 36.4 107 18 159/79 (105) 93 Nasal Cannula 2.0 03/30/17 08:30 109 24 156/95 (115) 95 Nasal Cannula 3.0 03/30/17 08:00 Nasal Cannula 2.0 03/30/17 07:40 36.4 122 28 175/115 (135) 93 Nasal Cannula 2.0 03/30/17 04:00 Nasal Cannula 2.0 03/30/17 03:57 36.4 106 19 157/83 (107) 97 Nasal Cannula 2.0 03/30/17 00:15 36.5 96 22 165/92 95 Nasal Cannula 2.0 03/29/17 23:45 95 23 98 Nasal Cannula 2.0 03/29/17 23:31 168/112 03/29/17 23:30 96 22 98 03/29/17 23:15 96 21 97 03/29/17 23:11 91 03/29/17 23:01 156/106 03/29/17 23:00 91 24 163/88 97 03/29/17 23:00 89 16 163/88 97 Nasal Cannula 2.0 03/29/17 21:15 98 23 97 03/29/17 21:10 105 24 96 03/29/17 21:05 88 22 148/85 87 Room Air 03/29/17 21:01 161/91 03/29/17 21:00 89 24 97 03/29/17 20:55 91 19 96 03/29/17 20:50 94 21 96 03/29/17 20:45 97 22 96 03/29/17 20:40 90 22 97 03/29/17 20:35 97 22 96 03/29/17 20:31 158/81 03/29/17 20:30 96 20 98 03/29/17 20:25 90 31 95 03/29/17 20:20 92 25 96 03/29/17 20:15 95 22 97 03/29/17 20:11 151/81 03/29/17 20:10 95 21 96 03/29/17 20:05 97 Nasal Cannula 2.0 03/29/17 20:05 100 23 97 03/29/17 20:00 93 26 97 03/29/17 19:59 103 03/29/17 19:48 160/102 03/29/17 19:37 100 03/29/17 19:37 36.7 110 24 163/113 100 Nebulizer 6.0 Lab Results: Results Past 24 Hours Test 03/29/17 19:00 03/29/17 19:57 03/30/17 06:13 03/30/17 11:45 Range/Units White Blood Count 8.75 8.73 4.8-10.8 K/uL Red Blood Count 4.11 4.09 4.2-5.4 M/uL Hemoglobin 13.1 13.0 12.0-16.0 g/dL Hematocrit 39.4 39.7 37-47 % Mean Corpuscular Volume 95.9 97.1 80-100 fL Mean Corpuscular Hemoglobin 31.9 31.8 25-34 pg Mean Corpuscular Hemoglobin Concent 33.2 32.7 32-36 g/dl Platelet Count 123 120 130-400 K/uL Mean Platelet Volume 10.9 11.4 7.4-10.4 fL Neutrophils (%) (Auto) 71.5 74.0 % Lymphocytes (%) (Auto) 13.6 11.2 % Monocytes (%) (Auto) 13.7 13.7 % Eosinophils (%) (Auto) 0.1 0.2 % Basophils (%) (Auto) 0.9 0.7 % Neutrophils # (Auto) 6.25 6.45 1.4-6.5 K/uL Lymphocytes # (Auto) 1.19 0.98 1.2-3.4 K/uL Monocytes # (Auto) 1.20 1.20 0.11-0.59 K/uL Eosinophils # (Auto) 0.01 0.02 0-0.5 K/uL Basophils # (Auto) 0.08 0.06 0-0.2 K/uL RDW Standard Deviation 51.7 53.0 36.4-46.3 fL RDW Coefficient of Variation 14.8 14.9 11.5-14.5 % Immature Granulocyte % (Auto) 0.2 0.2 % Immature Granulocyte # (Auto) 0.02 0.02 0.00-0.02 K/uL Prothrombin Time 27.5 27.5 9.0-12.0 SECONDS Prothromb Time International Ratio 2.7 2.7 0.9-1.1 Activated Partial Thromboplast Time 34.8 21.0-31.0 SECONDS Partial Thromboplastin Ratio 1.3 Sodium Level 136 139 136-145 mmol/L Potassium Level 4.1 3.2 3.5-5.1 mmol/L Chloride Level 101 101 98-107 mmol/L Carbon Dioxide Level 29 31 21-32 mmol/L Anion Gap 6.0 7.0 3-11 mmol/L Blood Urea Nitrogen 30 27 7-18 mg/dl Creatinine 1.58 1.35 0.60-1.20 mg/dl Est Creatinine Clear Calc Drug Dose 26.7 30.4 ml/min Estimated GFR () 34.5 41.7 Estimated GFR (Non- 29.7 36.0 BUN/Creatinine Ratio 19.1 19.9 10-20 Random Glucose 146 99 70-99 mg/dl Calcium Level 8.5 8.3 8.5-10.1 mg/dl Magnesium Level 1.8 1.8 1.8-2.4 mg/dl Total Bilirubin 1.1 1.1 0.2-1 mg/dl Direct Bilirubin 0.3 0-0.2 mg/dl Aspartate Amino Transf (AST/SGOT) 26 26 15-37 U/L Alanine Aminotransferase (ALT/SGPT) 22 21 12-78 U/L Alkaline Phosphatase 67 67 45-117 U/L Total Creatine Kinase 106 26-192 U/L Creatine Kinase MB 3.1 0.5-3.6 ng/ml Creatine Kinase MB Ratio 2.9 0-3.0 Pro-B-Type Natriuretic Peptide 9759 8163 0-1800 pg/ml Total Protein 7.4 7.3 6.4-8.2 gm/dl Albumin 3.6 3.6 3.4-5.0 gm/dl Bedside Troponin I < 0.030 0-0.045 ng/ml Globulin 3.7 2.5-4.0 gm/dl Albumin/Globulin Ratio 1.0 0.9-2 Thyroid Stimulating Hormone (TSH) 1.400 0.300-4.500 uIu/ml Influenza Type A (RT-PCR) Neg for Influ A NEG Influenza Type A Antigen Neg for Influ A NEG Influenza Type B Antigen Neg for Influ B NEG Influenza Type B (RT-PCR) Neg for Influ B NEG
[2017-03-30] MEDS: LEVALBUTEROL 0.31MG/3 ML VIAL INH SCH ×2 (15:00→20:52)
[2017-03-30] MEDS: METHYLPREDNISOLONE IV 20 MG in SYRINGE 0 ML IV SCH ×2 (15:29→23:41)
[2017-03-30] MEDS: WARFARIN SOD 5 MG TAB PO SCH (15:31)
--- NOTE | 2017-03-30 17:25 | ECHOCARDIOGRAM REPORT ---
*NOTICE TO RECEIVING [employer] AGENCY This information is strictly Confidential and protected under [place] law. [place] law prohibits you from making any further disclosure of this information unless further disclosure is expressly permitted by the written consent of the person to whom it pertains or is authorized by law. A general authorization for the release of medical or other information is not sufficient for this purpose. Hospital accepts no responsibility if the information is made available to any other person, INCLUDING THE PATIENT. Interpretation Summary * Name: FRANKY GIBSON Study Date: 03/30/2017 06:34 AM BP: 175/115 mmHg * Patient Location: C.2T\S\S230\S\1 HR: 120 * : 1930 (M/d/yyy) Gender: Female Height: 65 in * Age: 86 yrs Ethnicity: CA Weight: 163 lb * Ordering Physician: Bakari Taylor * Referring Physician: Self, Referred * Performed By: Chelo Seals RDCS * * Reason For Study: CHF * BSA: 1.8 m2 * The study was technically difficult. * There is no comparison study available. * -- Conclusions -- * The rhythm is atrial fibrillation with RVR. * Left ventricular systolic function is mildly reduced. * Ejection Fraction = 40-45%. * The base and mid inferoseptum is severely hypokinetic to akinetic. * The base inferior wall is akinetic. * The remainin LV myocardial wall segments are borderline hypokinetic. * The left atrium is mildly dilated. * Aortic valve sclerosis moderate, without significant aortic valvular stenosis. * There is mild mitral regurgitation. * There is moderate tricuspid regurgitation. * The estimated systolic PAP is 51mmHg. Procedure Details * A contrast injection of Definity was performed to improve assessment of LV function. * Contrast was injected into an intravenous site in the left arm. * One vial of Definity ultrasound contrast was diluted in normal saline to a total volume of 10 ml. A total of '3' ml of solution was administered during imaging. * Lot # [id number] of Definity utilized for procedure. * Expiration date 1 MAY 09. * The attending nurse who injected the contrast agent was LAURI ARMSTRONG. * A complete two-dimensional transthoracic echocardiogram was performed (2D, M-mode, Doppler and color flow Doppler). Left Ventricle * The left ventricle is normal in size. * The rhythm is atrial fibrillation with RVR. * There is no thrombus. * There is normal left ventricular wall thickness. * Ejection Fraction = 40-45%. * Left ventricular systolic function is mildly reduced. * The base and mid inferoseptum is severely hypokinetic to akinetic. The base inferior wall is akinetic. The remainin LV myocardial wall segments are borderline hypokinetic. Right Ventricle * The right ventricle is normal size. * The right ventricular systolic function is normal as assessed by tricuspid annular plane systolic excursion (TAPSE) (normal >1.5 cm). Atria * The left atrium is mildly dilated. * Right atrial size is normal. * There is no evidence of atrial septal defect, but resolution does not allow assessment for a patent foramen ovale. Mitral Valve * The mitral valve leaflets appear thickened, but open well. * There is no mitral valve stenosis. * There is mild mitral regurgitation. Tricuspid Valve * The tricuspid valve is normal. * There is no tricuspid stenosis. * There is moderate tricuspid regurgitation. * The estimated systolic PAP is 51mmHg. Aortic Valve * The aortic valve is trileaflet. * Aortic valve sclerosis moderate, without significant aortic valvular stenosis. * Aortic stenosis is absent. * There is no significant aortic regurgitation. Pulmonic Valve * The pulmonary valve is not well seen, but the Doppler examination is normal without significant regurgitation or stenosis. Great Vessels * The aortic root is normal size. Pericardium/Pleural * There is no pericardial effusion. Great Vessels * Mildly dilated IVC with normal respiratory variation suggesting a right atrial pressure of 8mmHg. Left Ventricular Diastolic Function * Pulse wave TDI of the anterior and posterior mitral annulas demonstrates abnormal LV relaxation MMode 2D Measurements and Calculations IVSd 1.3 cm IVSs 1.7 cm LVIDd 4.7 cm LVIDs 3.9 cm LVPWd 1.4 cm LVPWs 2.0 cm IVS/LVPW 0.92 FS 17.8 % EDV(Teich) 103.1 ml ESV(Teich) 64.9 ml EF(Teich) 37.0 % EDV(cubed) 104.8 ml ESV(cubed) 58.2 ml EF(cubed) 44.4 % % IVS thick 26.5 % % LVPW thick 37.5 % LV mass(C)d 261.8 grams LV mass(C)dI 144.4 grams/m\S\2 LV mass(C)s 308.0 grams LV mass(C)sI 169.8 grams/m\S\2 SV(Teich) 38.2 ml SI(Teich) 21.0 ml/m\S\2 SV(cubed) 46.6 ml SI(cubed) 25.7 ml/m\S\2 Ao root diam 3.1 cm Ao root area 7.8 cm\S\2 LA dimension 4.0 cm LA/Ao 1.3 LVAd ap4 28.9 cm\S\2 LVLd ap4 8.3 cm EDV(MOD-sp4) 82.9 ml EDV(sp4-el) 85.0 ml LVAs ap4 21.6 cm\S\2 LVLs ap4 7.9 cm ESV(MOD-sp4) 50.5 ml ESV(sp4-el) 50.3 ml EF(MOD-sp4) 39.1 % EF(sp4-el) 40.8 % LVAd ap2 25.4 cm\S\2 LVLd ap2 7.7 cm EDV(MOD-sp2) 66.5 ml EDV(sp2-el) 70.7 ml LVAs ap2 18.1 cm\S\2 LVLs ap2 6.9 cm ESV(MOD-sp2) 37.8 ml ESV(sp2-el) 40.1 ml EF(MOD-sp2) 43.1 % EF(sp2-el) 43.2 % LVLd %diff -7.58 % EDV(MOD-bp) 75.3 ml LVLs %diff -14.26 % ESV(MOD-bp) 45.9 ml EF(MOD-bp) 39.0 % SV(MOD-sp4) 32.4 ml SI(MOD-sp4) 17.9 ml/m\S\2 SV(MOD-sp2) 28.6 ml SI(MOD-sp2) 15.8 ml/m\S\2 SV(MOD-bp) 29.4 ml SI(MOD-bp) 16.2 ml/m\S\2 SV(sp4-el) 34.7 ml SI(sp4-el) 19.1 ml/m\S\2 SV(sp2-el) 30.6 ml SI(sp2-el) 16.9 ml/m\S\2 Doppler Measurements and Calculations MV E max balbir 104.7 cm/sec MV dec time 0.18 sec Ao V2 max 173.4 cm/sec Ao max PG 12.0 mmHg Ao max PG (full) 9.8 mmHg LV V1 max PG 2.2 mmHg LV V1 max 75.0 cm/sec TR max balbir 296.3 cm/sec
[2017-03-30] MEDS: SIMVASTATIN 20 MG TAB PO SCH (20:41)
[2017-03-30] MEDS: CARVEDILOL 12.5 MG TAB PO SCH (20:42)
[2017-03-31] VITALS (11 sets, daily range): BP systolic 120–144; BP diastolic 74–95; PULSE 72–112; TEMP 36.3–36.9; O2SAT 88–99
[2017-03-31] MEDS: LEVALBUTEROL 0.31MG/3 ML VIAL INH SCH ×4 (01:40→19:51)
[2017-03-31] MEDS: LEVOTHYROXINE 88 MCG TAB PO SCH (05:38)
[2017-03-31 05:47] LABS: HEMATOCRIT 40.7 % (37-47); HEMOGLOBIN 13.3 g/dL (12.0-16.0); MEAN CELL VOLUME 97.6 fL (80-100); MEAN CORPUSCULAR HEMOGLOBIN 31.9 pg (25-34); MEAN CORPUSCULAR HGB CONC 32.7 g/dl (32-36); MEAN PLATELET VOLUME 10.8 fL (7.4-10.4); PLATELET COUNT 104 K/uL (130-400); RED CELL DISTRIBUTION WIDTH CV 14.8 % (11.5-14.5); RED CELL DISTRIBUTION WIDTH SD 52.3 fL (36.4-46.3); WHITE BLOOD COUNT 5.47 K/uL (4.8-10.8)
[2017-03-31 06:23] LABS: CALCIUM 9.1 mg/dl (8.5-10.1); CREATININE 1.55 mg/dl (0.60-1.20); POTASSIUM 4.6 mmol/L (3.5-5.1)
[2017-03-31] MEDS: POTASSIUM CHLORIDE 20 MEQ TABCR PO SCH ×2 (09:00→19:23)
[2017-03-31] MEDS: METHYLPREDNISOLONE IV 20 MG in SYRINGE 0 ML IV SCH ×3 (09:24→23:37)
[2017-03-31] MEDS: ISOSORBIDE MONONITRATE 30 MG TABCR PO SCH (09:25)
[2017-03-31] MEDS: ASPIRIN 81 MG ECTAB PO SCH (09:25)
[2017-03-31] MEDS: ALLOPURINOL 100 MG TAB PO SCH ×2 (09:25→19:23)
[2017-03-31] MEDS: PANTOprazole SOD 40 MG TAB PO SCH (09:25)
[2017-03-31] MEDS: CALCIUM 600MG + VIT D 400 IU TAB PO SCH ×2 (09:25→19:23)
[2017-03-31] MEDS: CHOLECALCIFEROL 1000 INTER.UNIT TAB PO SCH (09:25)
[2017-03-31] MEDS: CARVEDILOL 25 MG TAB PO SCH (09:26)
--- NOTE | 2017-03-31 10:00 | Cardiology Follow-Up ---
Subjective General Date of Service: Mar 31, 2017. Chief Complaint: SOB Pt evaluation today including: conversation w/ patient, physical exam, chart review, lab review, review of studies, review of inpatient medication list History of Present Illness Patient seen and examined. Feeling some better overall though with ongoing cough that is difficult to expectorate, chest congestion, and wheezing. No appetite. No angina. Palpitations have improved. Telemetry: Currently (chronic) atrial fibrillation at 90 bpm. Ventricular rates have ranged from 70 to 130 bpm over the last 24 hours. No periods of sinus. No significant pauses. March 30, 2017 TTE interpretation Summary ([facility], as per Dr. Ybarra): The rhythm is atrial fibrillation with RVR. Left ventricular systolic function is mildly reduced. Ejection Fraction = 40-45%. The base and mid inferoseptum is severely hypokinetic to akinetic. The base inferior wall is akinetic. The remainin LV myocardial wall segments are borderline hypokinetic. The left atrium is mildly dilated. Aortic valve sclerosis moderate, without significant aortic valvular stenosis. There is mild mitral regurgitation. There is moderate tricuspid regurgitation. The estimated systolic PAP is 51mmHg. Allergies Coded Allergies: Naproxen (Verified Adverse Reaction, Intermediate, HYPERTENSION, 11/30/16) Ramipril (Verified Adverse Reaction, Intermediate, DIZZY, 11/30/16) Tizanidine (Verified Adverse Reaction, Intermediate, HIP PAIN, 11/30/16) Tramadol (Verified Adverse Reaction, Intermediate, "WOOZY", 11/30/16) Social History Smoking Status: Never Smoker Hx Tobacco Use In Past Year?: No Hx Alcohol Use - Type And Amou: No Hx Substance Use - Type And Am: No Problem List Medical Problems: (1) Biliary colic Status: Acute (2) Biliary obstruction Status: Acute (3) Congestive heart failure Status: Acute (4) Congestive heart failure Status: Acute (5) Congestive heart failure Status: Acute (6) Creatinine elevation Status: Acute (7) Supratherapeutic INR Status: Acute (8) Thrombocytopenia Status: Acute Social History Problems: (1) Diastolic CHF, acute on chronic Status: Acute Review of Systems Respiratory: + cough, + wheezing, + dyspnea on exertion, No sputum, No shortness of breath, No dyspnea at rest, No hemoptysis Cardiac: No chest pain, No orthopnea, No PND, No edema, No claudication, No palpitations Physical Exam Vital Signs Last Vital Signs Documentation Date Time Temp Pulse Resp B/P (MAP) Pulse Ox O2 Delivery O2 Flow Rate FiO2 03/31/17 07:27 36.9 94 20 144/95 (111) 99 Nasal Cannula 2.0 Physical Exam Constitutional: Level of Distress: acutely ill, chronically ill Psychiatric: Mental Status: active & alert Orientation: to time, to place, to person Memory: recent memory normal, remote memory normal Head: normocephalic, atraumatic Eyes: Pupils: PERRLA Neck: pertinent finding (Normal JVP) Lungs: Respiratory effort: dyspneic Auscultation: deminished air movement, decreased breath sounds, expiratory wheezing, rhonchi Cardiovascular: Heart Auscultation: no rubs, tachycardia, II/ PETE, irregular rate rhythm Peripheral Pulses: Radial Pulse: normal on the left, normal on the right Dorsalis Pedis Pulse: decreased on the left, decreased on the right Abdomen: Bowel Sounds: normal Inspection & Palpation: soft, no masses Extremities: no cyanosis, no edema, no clubbing Neurologic: Cranial Nerves: grossly intact Assessment and Plan Assessment and Plan Admission with signs and symptoms most consistent with an acute complicated bronchitis. History of diastolic congestive heart failure. Currently mildly hypovolemic. Chronic atrial fibrillation. Rates have improved with resumption of Carvedilol as previously prescribed (25 mg in the AM and 12.5 mg in the PM) Chronic Coumadin anticoagulation. INR goal 2.0 to 3.0. No diuretics today, likely resuming oral diuretic therapy in the AM of 2017 (home diuretic was furosemide 20 mg one day alternating with 40 mg the next day) Daily PT/INR's and basic metabolic panels. Cardiology attending physician: Patient seen and examined at the bedside. Cough and shortness of breath unchanged. Expiratory wheezing noted on exam. She is lying flat without dyspnea. No edema, orthopnea, or paroxysmal nocturnal dyspnea reported. Heart rate improved with carvedilol. PE: VSS. Gen: NAD, awake and alert, however, poor historian. Heart: Irregular, no murmur. Lung +exp wheeze. Ext: no edema. A/P: Agree with above PA-C history, physical exam, assessment and plan. Diuretic therapy remains on hold today. Reassess volume status in a.m. Will consider restarting outpatient oral Lasix at that time. Other medications will be continued as previously ordered. Will continue to follow along during hospitalization. Jose Alejandro Ybarra DO, [facility] Laboratory Results Last 24 Hours Test 03/30/17 11:45 03/30/17 15:00 03/31/17 05:37 Influenza Type A (RT-PCR) Neg for Influ A Influenza Type A Antigen Neg for Influ A Influenza Type B Antigen Neg for Influ B Influenza Type B (RT-PCR) Neg for Influ B Urine Color YELLOW Urine Appearance CLEAR Urine pH 5.0 Urine Specific [place] 1.015 Urine Protein TRACE Urine Glucose (UA) NEG Urine Ketones NEG Urine Occult Blood 1+ Urine Nitrite NEG Urine Bilirubin NEG Urine Urobilinogen NEG Urine Leukocyte Esterase NEG Urine WBC (Auto) 0 /hpf Urine RBC (Auto) 0-4 /hpf Urine Hyaline Casts (Auto) 5-10 /lpf Urine Epithelial Cells (Auto) 10-20 /lpf Urine Bacteria (Auto) NEG White Blood Count 5.47 K/uL Red Blood Count 4.17 M/uL Hemoglobin 13.3 g/dL Hematocrit 40.7 % Mean Corpuscular Volume 97.6 fL Mean Corpuscular Hemoglobin 31.9 pg Mean Corpuscular Hemoglobin Concent 32.7 g/dl RDW Standard Deviation 52.3 fL RDW Coefficient of Variation 14.8 % Platelet Count 104 K/uL Mean Platelet Volume 10.8 fL Sodium Level 141 mmol/L Potassium Level 4.6 mmol/L Chloride Level 103 mmol/L Carbon Dioxide Level 32 mmol/L Anion Gap 6.0 mmol/L Blood Urea Nitrogen 37 mg/dl Creatinine 1.55 mg/dl Est Creatinine Clear Calc Drug Dose 26.4 ml/min Estimated GFR () 35.3 Estimated GFR (Non- 30.4 BUN/Creatinine Ratio 23.8 Random Glucose 137 mg/dl Calcium Level 9.1 mg/dl Magnesium Level 2.1 mg/dl
--- NOTE | 2017-03-31 16:31 | Progress Note ---
Internal Med Progress Note Date of Service: Mar 31, 2017. Provider Documentation: SUBJECTIVE: The patient was seen and examined Remains SOB with increased Heart rate this AM Received 40 mg of Lasix this AM Clinically better today OBJECTIVE: Vital Signs-as noted below Exam: General-Minimal distress at est Eyes-normal ENT-normal Neck-supple Lungs-Decreased breath sound bilaterally Minimal wheezing and minimal crackles at the bases Heart-Irregular Abdomen-Benign Extremities-Trace edema bilaterally Neuro-AAOx3 Lab data as noted below. ASSESSMENT & PLAN: This is an 86 year old Female who was last admitted to [facility] for evaluation of shortness of breath and was evaluated at that time with cardiology service with primary diagnosis of diastolic heart failure with atrial fibrillation in November 2016 and returns with symptoms possibly from similar etiology Acute Diastolic CHF In assessment in the ED, patient status post Lasix 40 mg IV BNP 9759 and suggestive of fluid overload such as CHF however ED chest X ray without overt congestion of infiltrates Continue Lasix 40 mg IV daily Diet with fluid restriction Clinically much better Atrial Fibrillation with RVR Heart rate mildly tachycardic in the ED Appreciate cardiology input and recommendation Continue warfarin, INR is 2.7 on admission, monitor INR Increase SOB Flu negative ,No Pneumonia Minimal wheezing and decreased breath sound bilaterally May have component of Bronchitis Will try Nebs and small dose of Steroid Clinically better today History of CKD Monitor creatinine, expect creatinine to increase with Lasix use Minimally high Lasix dose adjusted Hypothyroidism Continue home dose Levothyroxine Check TSH Gout history Continue home dose allopurinol DVT ppx: on coumadin Allergies: to tramadol and naproxen but patient unclear of reactions Disposition Monitor on Telemetry Patient follows with [facility] cardiology as outpatient ([facility]) Patient follows with Dr. Albright as primary care doctor Full Code Alex is named Ms. Graves [phone] Vital Signs: Date Time Temp Pulse Resp B/P (MAP) Pulse Ox O2 Delivery O2 Flow Rate FiO2 03/31/17 15:57 36.5 72 16 132/78 (96) 93 Nasal Cannula 2.0 03/31/17 14:09 78 18 94 Nasal Cannula 2.0 03/31/17 12:25 88 Nasal Cannula 1.0 03/31/17 12:00 Nasal Cannula 2.0 03/31/17 10:37 36.3 90 20 123/77 (92) 90 Nasal Cannula 2.0 03/31/17 08:00 Nasal Cannula 2.0 03/31/17 07:27 36.9 94 20 144/95 (111) 99 Nasal Cannula 2.0 03/31/17 07:22 85 18 97 Nasal Cannula 2.0 03/31/17 04:05 Nasal Cannula 2.0 03/31/17 03:41 36.6 90 19 137/82 (100) 92 Nasal Cannula 2.0 03/31/17 01:40 74 16 98 Nasal Cannula 2.0 03/31/17 00:15 Nasal Cannula 2.0 03/30/17 23:13 36.4 70 24 135/82 (99) 92 Nasal Cannula 2.0 03/30/17 20:24 36.7 62 18 147/58 (87) 95 Nasal Cannula 2.0 03/30/17 20:00 Nasal Cannula 2.0 03/30/17 19:10 83 16 94 Nasal Cannula 2.0 03/30/17 18:41 36.3 95 22 138/83 (101) 100 Nasal Cannula 2.0 Lab Results: Results Past 24 Hours Test 03/31/17 05:37 Range/Units White Blood Count 5.47 4.8-10.8 K/uL Red Blood Count 4.17 4.2-5.4 M/uL Hemoglobin 13.3 12.0-16.0 g/dL Hematocrit 40.7 37-47 % Mean Corpuscular Volume 97.6 80-100 fL Mean Corpuscular Hemoglobin 31.9 25-34 pg Mean Corpuscular Hemoglobin Concent 32.7 32-36 g/dl RDW Standard Deviation 52.3 36.4-46.3 fL RDW Coefficient of Variation 14.8 11.5-14.5 % Platelet Count 104 130-400 K/uL Mean Platelet Volume 10.8 7.4-10.4 fL Sodium Level 141 136-145 mmol/L Potassium Level 4.6 3.5-5.1 mmol/L Chloride Level 103 98-107 mmol/L Carbon Dioxide Level 32 21-32 mmol/L Anion Gap 6.0 3-11 mmol/L Blood Urea Nitrogen 37 7-18 mg/dl Creatinine 1.55 0.60-1.20 mg/dl Est Creatinine Clear Calc Drug Dose 26.4 ml/min Estimated GFR () 35.3 Estimated GFR (Non- 30.4 BUN/Creatinine Ratio 23.8 10-20 Random Glucose 137 70-99 mg/dl Calcium Level 9.1 8.5-10.1 mg/dl Magnesium Level 2.1 1.8-2.4 mg/dl
[2017-03-31] MEDS: WARFARIN SOD 5 MG TAB PO SCH (16:59)
[2017-03-31] MEDS: SIMVASTATIN 20 MG TAB PO SCH (19:23)
[2017-03-31] MEDS: CARVEDILOL 12.5 MG TAB PO SCH (19:23)
[2017-03-31] MEDS ORDERED: COUGH DROP (SUGAR FREE) LOZ 24 LOZ/1 BOX ONE (23:35)
[2017-03-31] MEDS ORDERED: NURSING VERBAL MED ORDER ONE (23:45)
[2017-03-31] MEDS ORDERED: COUGH DROP (SUGAR FREE) LOZ 24 LOZ/1 BOX PO PRN (23:45)
[2017-04-01] MEDS: LEVALBUTEROL 0.31MG/3 ML VIAL INH SCH ×2 (01:58→07:04)
[2017-04-01 01:59] VITALS: PULSE 90; O2SAT 93
[2017-04-01 03:50] VITALS: BP 143/92; PULSE 77; TEMP 36.4; O2SAT 98
[2017-04-01] MEDS: LEVOTHYROXINE 88 MCG TAB PO SCH (05:30)
[2017-04-01 06:25] LABS: INR 3.1 (0.9-1.1)
[2017-04-01 07:28] VITALS: PULSE 87; O2SAT 93
[2017-04-01] MEDS: CHOLECALCIFEROL 1000 INTER.UNIT TAB PO SCH (07:34)
[2017-04-01] MEDS: CARVEDILOL 25 MG TAB PO SCH (07:35)
[2017-04-01] MEDS: PANTOprazole SOD 40 MG TAB PO SCH (07:35)
[2017-04-01] MEDS: POTASSIUM CHLORIDE 20 MEQ TABCR PO SCH (07:36)
[2017-04-01] MEDS: METHYLPREDNISOLONE IV 20 MG in SYRINGE 0 ML IV SCH (07:36)
[2017-04-01] MEDS: CALCIUM 600MG + VIT D 400 IU TAB PO SCH (07:36)
[2017-04-01] MEDS: ASPIRIN 81 MG ECTAB PO SCH (07:37)
[2017-04-01] MEDS: ALLOPURINOL 100 MG TAB PO SCH (07:37)
[2017-04-01] MEDS: ISOSORBIDE MONONITRATE 30 MG TABCR PO SCH (07:37)
[2017-04-01 08:04] VITALS: BP 129/78; PULSE 87; TEMP 36.8; O2SAT 98
[2017-04-01 08:52] LABS: CALCIUM 8.8 mg/dl (8.5-10.1); CREATININE 1.49 mg/dl (0.60-1.20); POTASSIUM 4.3 mmol/L (3.5-5.1)
--- NOTE | 2017-04-01 11:35 | Cardiology Follow-Up ---
Subjective General Date of Service: Apr 01, 2017. Chief Complaint: Cough Pt evaluation today including: conversation w/ patient, physical exam, chart review, lab review, review of studies, review of inpatient medication list History of Present Illness Patient seen and examined. Feeling some better. + cough, chest congestion, wheezing, intermittent nausea. Telemetry: Currently (chronic) atrial fibrillation at 90 bpm. Ventricular rates are acceptable. Occasional couplet, rare 3 beat PVC run. Bradycardia down to 53 bpm. No periods of sinus. No significant pauses. March 30, 2017 TTE interpretation Summary ([facility], as per Dr. Ybarra): The rhythm is atrial fibrillation with RVR. Left ventricular systolic function is mildly reduced. Ejection Fraction = 40-45%. The base and mid inferoseptum is severely hypokinetic to akinetic. The base inferior wall is akinetic. The remainin LV myocardial wall segments are borderline hypokinetic. The left atrium is mildly dilated. Aortic valve sclerosis moderate, without significant aortic valvular stenosis. There is mild mitral regurgitation. There is moderate tricuspid regurgitation. The estimated systolic PAP is 51mmHg. Allergies Coded Allergies: Naproxen (Verified Adverse Reaction, Intermediate, HYPERTENSION, 11/30/16) Ramipril (Verified Adverse Reaction, Intermediate, DIZZY, 11/30/16) Tizanidine (Verified Adverse Reaction, Intermediate, HIP PAIN, 11/30/16) Tramadol (Verified Adverse Reaction, Intermediate, "WOOZY", 11/30/16) Social History Smoking Status: Never Smoker Hx Tobacco Use In Past Year?: No Hx Alcohol Use - Type And Amou: No Hx Substance Use - Type And Am: No Problem List Medical Problems: (1) Biliary colic Status: Acute (2) Biliary obstruction Status: Acute (3) Congestive heart failure Status: Acute (4) Congestive heart failure Status: Acute (5) Congestive heart failure Status: Acute (6) Creatinine elevation Status: Acute (7) Supratherapeutic INR Status: Acute (8) Thrombocytopenia Status: Acute Social History Problems: (1) Diastolic CHF, acute on chronic Status: Acute Review of Systems Respiratory: + cough, + shortness of breath, + dyspnea on exertion, No sputum, No wheezing, No hemoptysis Cardiac: No chest pain, No orthopnea, No PND, No edema Physical Exam Vital Signs Last Vital Signs Documentation Date Time Temp Pulse Resp B/P (MAP) Pulse Ox O2 Delivery O2 Flow Rate FiO2 04/01/17 08:04 36.8 87 18 129/78 (95) 98 04/01/17 08:00 Nasal Cannula 2.0 Physical Exam Constitutional: Level of Distress: acutely ill, chronically ill Psychiatric: Mental Status: active & alert Orientation: to time, to place, to person Memory: recent memory normal, remote memory normal Head: normocephalic, atraumatic Eyes: Pupils: PERRLA Neck: pertinent finding (Normal JVP) Lungs: Respiratory effort: dyspneic Auscultation: deminished air movement, decreased breath sounds, expiratory wheezing, rhonchi Cardiovascular: Heart Auscultation: no rubs, tachycardia, II/ PETE, irregular rate rhythm Peripheral Pulses: Radial Pulse: normal on the left, normal on the right Dorsalis Pedis Pulse: decreased on the left, decreased on the right Abdomen: Bowel Sounds: normal Inspection & Palpation: soft, no masses Extremities: no cyanosis, no edema, no clubbing Neurologic: Cranial Nerves: grossly intact Assessment and Plan Assessment and Plan Admission with acute complicated bronchitis History of diastolic congestive heart failure. She remains hypovolemic. Chronic atrial fibrillation. Rates controlled. Chronic Coumadin anticoagulation. INR goal 2.0 to 3.0. Hold furosemide today and tomorrow. Resuming furosemide starting at 20 mg on Tuesday (home dose is 20 mg one day alternating with 40 mg the next day) Outpatient cardiology follow-up. Office aware, making arrangements for follow- up in [place] in 1-2 weeks. Cardiology attending physician: Patient seen and examined at the bedside. Cough and shortness of breath improved. No edema, orthopnea, or paroxysmal nocturnal dyspnea reported. Heart rate controlled. PE: VSS. Gen: NAD, awake and alert, however, poor historian. Heart: Irregular, no murmur. Lung +exp wheeze. Ext: no edema. A/P: Agree with above PA-C history, physical exam, assessment and plan. Diuretic therapy remains on hold until Tuesday. Other medications will be continued as previously ordered. Jose Alejandro Ybarra DO, [facility] Laboratory Results Last 24 Hours Test 04/01/17 05:35 Prothrombin Time 32.2 SECONDS Prothromb Time International Ratio 3.1 Sodium Level 137 mmol/L Potassium Level 4.3 mmol/L Chloride Level 101 mmol/L Carbon Dioxide Level 30 mmol/L Anion Gap 7.0 mmol/L Blood Urea Nitrogen 51 mg/dl Creatinine 1.49 mg/dl Est Creatinine Clear Calc Drug Dose 27.4 ml/min Estimated GFR () 37.0 Estimated GFR (Non- 31.9 BUN/Creatinine Ratio 34.4 Random Glucose 143 mg/dl Calcium Level 8.8 mg/dl
[2017-04-01 12:02] VITALS: BP 113/67; PULSE 94; TEMP 36.6; O2SAT 98
--- NOTE | 2017-04-01 12:17 | Progress Note ---
Internal Med Progress Note Date of Service: Apr 01, 2017. Provider Documentation: SUBJECTIVE: The patient was seen and examined Remains SOB with increased Heart rate this AM Lasix dose is adjusted for home Clinically better today Awaiting PT before discharge OBJECTIVE: Vital Signs-as noted below Exam: General-No distress at est Eyes-normal ENT-normal Neck-supple Lungs-Decreased breath sound bilaterally Minimal wheezing and minimal crackles at left base Heart-Irregular Abdomen-Benign Extremities-Trace edema bilaterally Neuro-AAOx3 Lab data as noted below. ASSESSMENT & PLAN: This is an 86 year old Female who was last admitted to [facility] for evaluation of shortness of breath and was evaluated at that time with cardiology service with primary diagnosis of diastolic heart failure with atrial fibrillation in November 2016 and returns with symptoms possibly from similar etiology Acute Diastolic CHF In assessment in the ED, patient status post Lasix 40 mg IV BNP 9759 and suggestive of fluid overload such as CHF however ED chest X ray without overt congestion of infiltrates Continue Lasix 40 mg IV daily Diet with fluid restriction Clinically much better Lasix 20 mg alternate with 40 at home Atrial Fibrillation with RVR Heart rate mildly tachycardic in the ED Appreciate cardiology input and recommendation Continue warfarin, INR is 2.7 on admission, monitor INR Increase SOB Flu negative ,No Pneumonia Minimal wheezing and decreased breath sound bilaterally May have component of Bronchitis Will try Nebs and small dose of Steroid Clinically better today Will taper steroid quickly History of CKD Monitor creatinine, expect creatinine to increase with Lasix use Minimally high Lasix dose adjusted Hypothyroidism Continue home dose Levothyroxine Check TSH Gout history Continue home dose allopurinol DVT ppx: on coumadin Allergies: to tramadol and naproxen but patient unclear of reactions Disposition Monitor on Telemetry Patient follows with [facility] cardiology as outpatient ([facility]) Patient follows with Dr. Albright as primary care doctor Full Code Niece is named Ms. Graves [phone] Will discharge today after PT evaluation Vital Signs: Date Time Temp Pulse Resp B/P (MAP) Pulse Ox O2 Delivery O2 Flow Rate FiO2 04/01/17 12:02 36.6 94 16 113/67 (82) 98 Nasal Cannula 3.0 04/01/17 08:04 36.8 87 18 129/78 (95) 98 04/01/17 08:00 Nasal Cannula 2.0 04/01/17 07:28 87 16 93 Nasal Cannula 2.0 04/01/17 04:00 Room Air 04/01/17 03:50 36.4 77 20 143/92 (109) 98 Room Air 04/01/17 01:59 90 16 93 Nasal Cannula 2.0 04/01/17 00:00 Room Air 03/31/17 23:36 36.8 112 24 120/76 (91) 94 Room Air 03/31/17 20:00 Nasal Cannula 2.0 03/31/17 19:52 36.4 89 18 127/74 (91) 96 Nasal Cannula 2.0 03/31/17 19:51 84 18 97 Nasal Cannula 2.0 03/31/17 16:00 Nasal Cannula 2.0 03/31/17 15:57 36.5 72 16 132/78 (96) 93 Nasal Cannula 2.0 03/31/17 14:09 78 18 94 Nasal Cannula 2.0 03/31/17 12:25 88 Nasal Cannula 1.0 Lab Results: Results Past 24 Hours Test 04/01/17 05:35 Range/Units Prothrombin Time 32.2 9.0-12.0 SECONDS Prothromb Time International Ratio 3.1 0.9-1.1 Sodium Level 137 136-145 mmol/L Potassium Level 4.3 3.5-5.1 mmol/L Chloride Level 101 98-107 mmol/L Carbon Dioxide Level 30 21-32 mmol/L Anion Gap 7.0 3-11 mmol/L Blood Urea Nitrogen 51 7-18 mg/dl Creatinine 1.49 0.60-1.20 mg/dl Est Creatinine Clear Calc Drug Dose 27.4 ml/min Estimated GFR () 37.0 Estimated GFR (Non- 31.9 BUN/Creatinine Ratio 34.4 10-20 Random Glucose 143 70-99 mg/dl Calcium Level 8.8 8.5-10.1 mg/dl
[2017-04-01] MEDS ORDERED: PRVHFAIN INH (15:09)
[2017-04-01] MEDS ORDERED: PRED10TA PO (15:09)
--- NOTE | 2017-04-01 15:12 | Discharge Instructions ---
Discharge Instructions Date of Service Apr 01, 2017. Admission Reason for Admission: SOB Discharge Discharge Diagnosis / Problem: AF,Diastolic CHF,Acute bronchitis Discharge Goals Goal(s): Prevent Disease Progression Activity Recommendations Activity Limitations: resume your previous activity . Instructions / Follow-Up Instructions / Follow-Up Dr Andrade on 04/06/17 at 10:45 AM.Cardiology will call for appointment.Please have regular follow up with Coagulation clionic Current Hospital Diet Patient's current hospital diet: AHA Diet (Heart Healthy) Discharge Diet Recommended Diet: AHA Diet (Heart Healthy), Low Sodium Diet (2gm Na) Fluid Restriction: 1500 ml (6 cups) Pending Studies Studies pending at discharge: no Medical Emergencies . Who to Call and When: Medical Emergencies: If at any time you feel your situation is an emergency, please call 911 immediately. . Non-Emergent Contact Non-Emergency issues call your: Primary Care Provider . Past History Medical & Surgical History: (1) Afib (2) HTN (hypertension) (3) CKD (chronic kidney disease), stage III (4) Diastolic CHF, chronic (5) SOB (shortness of breath) (6) S/P cholecystectomy . "Provider Documentation" section prepared by Tyson Rebolledo. . VTE Core Measure Inpt VTE Proph given/why not?: Warfarin (Coumadin)
[2017-04-01 15:13] VITALS: BP 113/67; PULSE 94; TEMP 36.6; O2SAT 98
[2017-04-01] MEDS ORDERED: WARFARIN SOD 2.5 MG TAB PO SCH (16:00)
--- NOTE | 2017-04-02 08:07 | Discharge Summary ---
Discharge Summary Date of Service Apr 02, 2017. Discharge Summary Admission Date: Mar 29, 2017 at 22:45 Discharge Date: Apr 01, 2017 Discharge Disposition: Home Principal Diagnosis: AF,Diastolic CHF,Acute bronchitis Secondary Diagnoses/Problems: Please see [facility] and Hospital progress note Consultations: Cardiology Medication Reconciliation New Medications: Albuterol (Ventolin Hfa) 60 Puffs/5400 Mcg Aers 2 PUFF INH Q6HWA, #1 Prednisone Tab (Prednisone) 10 Mg Tab 10 MG PO UD for 11 Days, #26 TAB 4 po daily for 2 days,3 po daily for 3 days,2 po daily for 3 days and then 1 po daily for 3 days. Continued Medications: Allopurinol (Zyloprim) 100 Mg Tab 100 MG PO BID, TAB Aspirin (Aspirin) 81 Mg Tab 81 MG PO DAILY Calcium Carbonate-Vitamin D (Calcium 600+D) 1 Tab Tab 1 TAB PO BID Carvedilol (Coreg) 25 Mg Tab 25 MG PO QAM, TAB Carvedilol (Coreg) 12.5 Mg Tab 12.5 MG PO QPM, TAB Cholecalciferol (Vitamin D 1000 Unit) 1,000 Unit Cap 1000 INTER.UNIT PO DAILY, CAP Estrogens, Conjugated (Premarin) 14 Appln/30 Gm Cr 1 APPLN TOP MWF Furosemide (Furosemide) 40 Mg Tab 20 MG PO Q2D Furosemide (Lasix) 40 Mg Tab 40 MG PO Q2D, TAB ALTERNATE WITH 20 MEQ DAILY Isosorbide Mononitrate (Isosorbide Mononitrate ER) 30 Mg Tabcr 30 MG PO DAILY Levothyroxine Sodium (Synthroid) 88 Mcg Tab 88 MCG PO QAM Omeprazole (Prilosec) 20 Mg Capcr 20 MG PO DAILY, CAP Potassium Ext Rel (Klor-Con) 20 Meq Tabcr 20 MEQ PO BID, TAB Simvastatin (Zocor) 20 Mg Tab 20 MG PO QPM, TAB Warfarin Sod (Jantoven) 2.5 Mg Tab 5 MG PO 5XWK, TAB Warfarin Sodium (Warfarin Sodium) 2.5 Mg Tab 2.5 MG PO MON&FRI Discontinued Medications: Amoxicillin & Pot Clavulanate (Augmentin 875-125 mg) 1 Tab Tab 1 TAB PO BID, #10 TAB Prednisone (Prednisone) 20 Mg Tab 40 MG PO UD DAILY FOR 5 DAYS Admission Information HPI (per Admitting provider): This is an 86 year old Female who was last admitted to [facility] for evaluation of shortness of breath and was evaluated at that time with cardiology service with primary diagnosis of diastolic heart failure with atrial fibrillation in November 2016. Patient returns to the ED on 03/29/2017 with complaints of worsening dyspnea. As per ED physician, patient received 500 ml of IV fluids on the ambulance but in her clinical assessment, patient likely having congestive heart failure diagnosis and received 40 mg IV Lasix in the ED. Patient seen and evaluated subsequently by internal medicine hospitalist physician. Patient on nasal cannula. She expressed concern whether she was having more shortness of breath because of inadequate fluid restriction however based on the the clinical assessment and physical exam, it is difficult to discern whether was having overt congestive heart failure. Patient denied gross swelling of lower extremities. No JVD on physical exam. Lung auscultation not completely clear but good air entry. Patient's BNP was over 9000 but the chest X ray performed in the ED did not have overt pulmonary congestion. Past Medical/Surgical History Medical Problems: (1) Afib Status: Chronic (2) CKD (chronic kidney disease), stage III Status: Chronic (3) Diastolic CHF, chronic Status: Chronic (4) HTN (hypertension) Status: Chronic (5) Lumbar disc disease Status: Chronic (6) Osteoarthritis Status: Chronic Family History Diabetes mellitus Heart disease Hypertension Social History Smoking Status: Never Smoker Drug Use: none Marital Status: single Housing status: lives alone Occupational Status: retired Multi-Drug Resistant Organisms History of MDRO: No Allergies Coded Allergies: Naproxen (Verified Adverse Reaction, Intermediate, HYPERTENSION, 11/30/16) Ramipril (Verified Adverse Reaction, Intermediate, DIZZY, 11/30/16) Tizanidine (Verified Adverse Reaction, Intermediate, HIP PAIN, 11/30/16) Tramadol (Verified Adverse Reaction, Intermediate, "WOOZY", 11/30/16) Home Medications Scheduled Allopurinol (Zyloprim), 100 MG PO BID Amoxicillin & Pot Clavulanate (Augmentin 875-125 mg), 1 TAB PO BID Aspirin (Aspirin), 81 MG PO DAILY Calcium Carbonate-Vitamin D (Calcium 600+D), 1 TAB PO BID Carvedilol (Coreg), 25 MG PO QAM Carvedilol (Coreg), 12.5 MG PO QPM Cholecalciferol (Vitamin D 1000 Unit), 1,000 INTER.UNIT PO DAILY Estrogens, Conjugated (Premarin), 1 APPLN TOP MWF Furosemide (Furosemide), 20 MG PO Q2D Furosemide (Lasix), 40 MG PO Q2D Isosorbide Mononitrate (Isosorbide Mononitrate ER), 30 MG PO DAILY Levothyroxine Sodium (Synthroid), 88 MCG PO QAM Omeprazole (Prilosec), 20 MG PO DAILY Potassium Ext Rel (Klor-Con), 20 MEQ PO BID Prednisone (Prednisone), 40 MG PO UD Simvastatin (Zocor), 20 MG PO QPM Warfarin Sod (Jantoven), 5 MG PO 5XWK Warfarin Sodium (Warfarin Sodium), 2.5 MG PO MON&FRI Review of Systems Constitutional: No fever Eyes: No worsening of vision, No eye pain ENT: No hearing loss, No unusual epistaxis, No nasal symptoms, No sore throat, No tinnitus, No dental problems, No trouble swallowing, No problem reported Respiratory: + shortness of breath, No cough, No sputum, No wheezing, No hemoptysis Cardiovascular: No chest pain, No edema, No palpitations Abdomen: No pain, No nausea, No vomiting, No diarrhea, No constipation, No GI bleeding, No problem reported Musculoskeletal: No joint pain, No muscle pain, No swelling, No calf pain, No problem reported Genitourinary - Female: No dysuria Neurologic: No numbness/tingling Psychiatric: No substance abuse Endocrine: No fatigue Integumentary: No rash Physical Ex - H&P Physical Exam Vital Signs Date Time Temp Pulse Resp B/P (MAP) Pulse Ox O2 Delivery O2 Flow Rate FiO2 03/29/17 23:11 91 03/29/17 23:00 89 16 163/88 97 Nasal Cannula 2.0 03/29/17 21:15 98 23 97 03/29/17 21:10 105 24 96 03/29/17 21:05 88 22 148/85 87 Room Air 03/29/17 21:01 161/91 03/29/17 21:00 89 24 97 03/29/17 20:55 91 19 96 03/29/17 20:50 94 21 96 03/29/17 20:45 97 22 96 03/29/17 20:40 90 22 97 03/29/17 20:35 97 22 96 03/29/17 20:31 158/81 03/29/17 20:30 96 20 98 03/29/17 20:25 90 31 95 03/29/17 20:20 92 25 96 03/29/17 20:15 95 22 97 03/29/17 20:11 151/81 03/29/17 20:10 95 21 96 03/29/17 20:05 97 Nasal Cannula 2.0 03/29/17 20:05 100 23 97 03/29/17 20:00 93 26 97 03/29/17 19:59 103 03/29/17 19:48 160/102 03/29/17 19:37 100 03/29/17 19:37 36.7 110 24 163/113 100 Nebulizer 6.0 General Appearance: no apparent distress Head: normocephalic Eyes: normal inspection, EOMI, sclerae normal ENT: normal ENT inspection, hearing grossly normal, pharynx normal Neck: supple, no JVD, trachea midline Respiratory/Chest: chest non-tender, lungs clear, no respiratory distress, no accessory muscle use, + pertinent finding (generally good air entry, possible less breath sound of right lung eli compare to left lung eli) Cardiovascular: regular rate, rhythm, no edema, no JVD, + pertinent finding ( atrial fibrillation on EKG) Abdomen/GI: normal bowel sounds, non tender, soft, no organomegaly Back: normal inspection, normal range of motion Extremities/Musculoskelatal: normal inspection, no calf tenderness, no pedal edema, normal range of motion, non-tender Neurologic/Psych: no motor/sensory deficits, alert, oriented x 3 Diagnostics - H&P Diagnostics Laboratory Results Results Past 24 Hours Test 03/29/17 19:00 03/29/17 19:57 Range/Units White Blood Count 8.75 4.8-10.8 K/uL Red Blood Count 4.11 4.2-5.4 M/uL Hemoglobin 13.1 12.0-16.0 g/dL Hematocrit 39.4 37-47 % Mean Corpuscular Volume 95.9 80-100 fL Mean Corpuscular Hemoglobin 31.9 25-34 pg Mean Corpuscular Hemoglobin Concent 33.2 32-36 g/dl Platelet Count 123 130-400 K/uL Mean Platelet Volume 10.9 7.4-10.4 fL Neutrophils (%) (Auto) 71.5 % Lymphocytes (%) (Auto) 13.6 % Monocytes (%) (Auto) 13.7 % Eosinophils (%) (Auto) 0.1 % Basophils (%) (Auto) 0.9 % Neutrophils # (Auto) 6.25 1.4-6.5 K/uL Lymphocytes # (Auto) 1.19 1.2-3.4 K/uL Monocytes # (Auto) 1.20 0.11-0.59 K/uL Eosinophils # (Auto) 0.01 0-0.5 K/uL Basophils # (Auto) 0.08 0-0.2 K/uL RDW Standard Deviation 51.7 36.4-46.3 fL RDW Coefficient of Variation 14.8 11.5-14.5 % Immature Granulocyte % (Auto) 0.2 % Immature Granulocyte # (Auto) 0.02 0.00-0.02 K/uL Prothrombin Time 27.5 9.0-12.0 SECONDS Prothromb Time International Ratio 2.7 0.9-1.1 Activated Partial Thromboplast Time 34.8 21.0-31.0 SECONDS Partial Thromboplastin Ratio 1.3 Sodium Level 136 136-145 mmol/L Potassium Level 4.1 3.5-5.1 mmol/L Chloride Level 101 98-107 mmol/L Carbon Dioxide Level 29 21-32 mmol/L Anion Gap 6.0 3-11 mmol/L Blood Urea Nitrogen 30 7-18 mg/dl Creatinine 1.58 0.60-1.20 mg/dl Est Creatinine Clear Calc Drug Dose 26.7 ml/min Estimated GFR () 34.5 Estimated GFR (Non- 29.7 BUN/Creatinine Ratio 19.1 10-20 Random Glucose 146 70-99 mg/dl Calcium Level 8.5 8.5-10.1 mg/dl Magnesium Level 1.8 1.8-2.4 mg/dl Total Bilirubin 1.1 0.2-1 mg/dl Direct Bilirubin 0.3 0-0.2 mg/dl Aspartate Amino Transf (AST/SGOT) 26 15-37 U/L Alanine Aminotransferase (ALT/SGPT) 22 12-78 U/L Alkaline Phosphatase 67 45-117 U/L Total Creatine Kinase 106 26-192 U/L Creatine Kinase MB 3.1 0.5-3.6 ng/ml Creatine Kinase MB Ratio 2.9 0-3.0 Pro-B-Type Natriuretic Peptide 9759 0-1800 pg/ml Total Protein 7.4 6.4-8.2 gm/dl Albumin 3.6 3.4-5.0 gm/dl Bedside Troponin I < 0.030 0-0.045 ng/ml Diagnostic Radiology CXR: The heart is enlarged. There is mild central vascular prominence without evidence of overt failure. There is no focal pulmonary consolidation. There are no pleural effusions EKG EKG 103 bpm atrial fibrillation Impression - H&P Impression Assessment and Plan This is an 86 year old Female who was last admitted to [facility] for evaluation of shortness of breath and was evaluated at that time with cardiology service with primary diagnosis of diastolic heart failure with atrial fibrillation in November 2016 and returns with symptoms possibly from similar etiology possible CHF In assessment in the ED, patient status post Lasix 40 mg IV BNP 9759 and suggestive of fluid overload such as CHF however ED chest X ray without overt congestion of infiltrates Continue Lasix 40 mg IV daily Diet with fluid restriction There may be a possibility that this is not a systolic heart failure but an exacerbation of diastolic heart failure Echocardiogram ordered Repeat chest X ray on 03/30/17 Continue home dose simvastatin and aspirin Atrial Fibrillation heart rate mildly tachycardic in the ED is at this time in acceptable ranges under 110 bpm monitor patient on telemetry continue carvedilol 12.5 mg BID was bradycardic on November 2016 when on higher does of carvedilol continue warfarin, INR is 2.7 on admission, monitor INR home warfarin regimen is 2.5 mg daily on Tuesday and Tuesday. Is 5 mg daily on other days of the week History of CKD monitor creatinine, expect creatinine to increase with Lasix use Hypothyroidism Continue home dose Levothyroxine Check TSH Gout history Continue home dose allopurinol DVT ppx: on coumadin Allergies: to tramadol and naproxen but patient unclear of reactions Disposition Monitor on Telemetry Patient follows with [facility] cardiology as outpatient ([facility]) Patient follows with Dr. Albright as primary care doctor Full Code Alex is named Ms. Graves [phone] Level of Care Telemetry Resuscitation Status FULL RESUSCITATION VTE Prophylaxis VTE Risk Assessment Done? Y/N: Yes Risk Level: Moderate Physical Exam (per Admitting): General Appearance: no apparent distress Head: normocephalic Eyes: normal inspection, EOMI, sclerae normal ENT: normal ENT inspection, hearing grossly normal, pharynx normal Neck: supple, no JVD, trachea midline Respiratory/Chest: chest non-tender, lungs clear, no respiratory distress, no accessory muscle use, + pertinent finding (generally good air entry, possible less breath sound of right lung eli compare to left lung eli) Cardiovascular: regular rate, rhythm, no edema, no JVD, + pertinent finding (atrial fibrillation on EKG) Abdomen/GI: normal bowel sounds, non tender, soft, no organomegaly Back: normal inspection, normal range of motion Extremities/Musculoskelatal: normal inspection, no calf tenderness, no pedal edema, normal range of motion, non-tender Neurologic/Psych: no motor/sensory deficits, alert, oriented x 3 Hospital Course This is an 86 year old Female who was last admitted to [facility] for evaluation of shortness of breath and was evaluated at that time with cardiology service with primary diagnosis of diastolic heart failure with atrial fibrillation in November 2016 and returns with symptoms possibly from similar etiology Acute Diastolic CHF In assessment in the ED, patient status post Lasix 40 mg IV BNP 9759 and suggestive of fluid overload such as CHF however ED chest X ray without overt congestion of infiltrates Continue Lasix 40 mg IV daily Diet with fluid restriction Clinically much better Lasix 20 mg alternate with 40 at home Atrial Fibrillation with RVR Heart rate mildly tachycardic in the ED Appreciate cardiology input and recommendation Continue warfarin, INR is 2.7 on admission, monitor INR Increase SOB Flu negative ,No Pneumonia Minimal wheezing and decreased breath sound bilaterally May have component of Bronchitis Will try Nebs and small dose of Steroid Clinically better today Will taper steroid quickly History of CKD Monitor creatinine, expect creatinine to increase with Lasix use Minimally high Lasix dose adjusted Hypothyroidism Continue home dose Levothyroxine Check TSH Gout history Continue home dose allopurinol DVT ppx: on coumadin Allergies: to tramadol and naproxen but patient unclear of reactions Disposition Monitor on Telemetry Patient follows with [facility] cardiology as outpatient ([facility]) Patient follows with Dr. Albright as primary care doctor Full Code Niece is named Ms. Graves [phone] Will discharge today after PT evaluation Total time spent on discharge = 35 minutes This includes examination of the patient, discharge planning, medication reconciliation, and communication with other providers. Discharge Instructions Date of Service Apr 01, 2017. Admission Reason for Admission: SOB Discharge Discharge Diagnosis / Problem: AF,Diastolic CHF,Acute bronchitis Discharge Goals Goal(s): Prevent Disease Progression Activity Recommendations Activity Limitations: resume your previous activity . Instructions / Follow-Up Instructions / Follow-Up Dr Andrade on 04/06/17 at 10:45 AM.Cardiology will call for appointment.Please have regular follow up with Coagulation clionic Current Hospital Diet Patient's current hospital diet: AHA Diet (Heart Healthy) Discharge Diet Recommended Diet: AHA Diet (Heart Healthy), Low Sodium Diet (2gm Na) Fluid Restriction: 1500 ml (6 cups) Pending Studies Studies pending at discharge: no Medical Emergencies . Who to Call and When: Medical Emergencies: If at any time you feel your situation is an emergency, please call 911 immediately. . Non-Emergent Contact Non-Emergency issues call your: Primary Care Provider . Past History Medical & Surgical History: (1) Afib (2) HTN (hypertension) (3) CKD (chronic kidney disease), stage III (4) Diastolic CHF, chronic (5) SOB (shortness of breath) (6) S/P cholecystectomy . "Provider Documentation" section prepared by Tyson Rebolledo. . VTE Core Measure Inpt VTE Proph given/why not?: Warfarin (Coumadin) <Electronically signed by Tyson Rebolledo M.D.> Signed: 04/01/17 1512 Additional Copies To Marika Thomas D.O.
== END 2017-04-01 17:15 | disposition home or self-care (01) | DRG 291 ==
LOC: EDBD 19:25 → C.EDA 19:26 → C.2T 22:45 → ENRESERV 23:10
PROVIDERS: ADMIT Hospitalist; ATTEND Internal Medicine
DX: I13.0 Hypertensive heart and chronic kidney disease with heart failure and stage 1 through stage 4 chronic kidney disease, or unspecified chronic kidney disease (principal); I50.33 Acute on chronic diastolic (congestive) heart failure; J20.9 Acute bronchitis, unspecified; I48.2 Chronic atrial fibrillation; N18.3 Chronic kidney disease, stage 3 (moderate); E03.9 Hypothyroidism, unspecified; M10.9 Gout, unspecified; Z51.81 Encounter for therapeutic drug level monitoring; E78.5 Hyperlipidemia, unspecified; K21.9 Gastro-esophageal reflux disease without esophagitis; Z79.899 Other long term (current) drug therapy; Z79.01 Long term (current) use of anticoagulants; Z79.82 Long term (current) use of aspirin; Z83.3 Family history of diabetes mellitus; Z82.49 Family history of ischemic heart disease and other diseases of the circulatory system

== ENCOUNTER 2018-03-29 22:08 | Inpatient (IN) ==
[2018-03-29] MEDS ORDERED: SODIUM CHLORIDE 0.9% 500 ML IV SCH (22:15)
--- NOTE | 2018-03-29 22:49 | XRay Report ---
XR pelvis 1-2V routine CLINICAL HISTORY: r hip pain pain COMPARISON: None. DISCUSSION: Prior total left hip arthroplasty. Considerable degenerative change right hip. No well-de fined fracture or dislocation. No evidence for acetabular protrusion. There is no evidence for soft t issue swelling. IMPRESSION: 1. Considerable degenerative change right hip. 2. No acute process. 3. Total left hip arthroplasty good position. The above report was generated using voice recognition software. It may contain grammatical, syntax or spelling errors. Electronically signed by: Alen Mar M.D. 03/29/2018 10:46 PM
--- NOTE | 2018-03-29 22:56 | XRay Report ---
XR femur RT 2V routine CLINICAL HISTORY: r fem pain pain COMPARISON: None. DISCUSSION: Considerable degenerative change right knee and right hip. No evidence for acute bony pat hology. No evidence for fracture or dislocation. Soft tissue vascular calcifications. There is no chayo dence for soft tissue swelling. IMPRESSION: Degenerative change of the right hip and right knee. No acute process of the femur. The above report was generated using voice recognition software. It may contain grammatical, syntax or spelling errors. Electronically signed by: Alen Mar M.D. 03/29/2018 10:55 PM
--- NOTE | 2018-03-29 22:57 | XRay Report ---
XR chest 1V portable CLINICAL HISTORY: fall trauma COMPARISON STUDY: 03/30/2017 FINDINGS: Moderate cardiomegaly. Lungs are clear. Diaphragms are smooth. IMPRESSION: Chronic change. No acute process. The above report was generated using voice recognition software. It may contain grammatical, syntax or spelling errors. Electronically signed by: Alen Mar M.D. 03/29/2018 10:55 PM
[2018-03-30 00:06] LABS: INR 2.9 (0.9-1.1); Prothrombin Time 27.5 Seconds (9.0-12.0)
[2018-03-30 00:18] LABS: Albumin Level 3.3 gm/dl (3.4-5.0); BUN Creatinine Ratio 22.8 (10-20); Calcium 9.1 mg/dl (8.5-10.1); Creatinine Clr Calc Pharmacy 30.5 ml/min; Est GFR (African American) 38.6; Est GFR (Non-African American) 33.3
[2018-03-30 00:19] LABS: Basophils # (auto) 0.02 K/uL (0-0.2); Basophils % (auto) 0.2 %; Eosinophils # (auto) 0.09 K/uL (0-0.5); Eosinophils % (auto) 0.7 %; Hematocrit (blood only) 38.7 % (37-47); Immature Granulocytes # (auto) 0.03 K/uL (0.00-0.02); Immature Granulocytes % (auto) 0.2 %; Lymphocytes # (auto) 0.93 K/uL (1.2-3.4); Lymphocytes % (auto) 7.4 %; Mean Corpuscular Hgb Conc 33.6 g/dL (32-36); Mean Platelet Volume 11.1 fL (7.4-10.4); Monocytes # (auto) 0.85 K/uL (0.11-0.59); Monocytes % (auto) 6.8 %; Neutrophils % (auto) 84.7 %; Platelet Count 83 K/uL (130-400); RBC Morphology Unremarkable; RDW Coefficient of Variation 15.3 % (11.5-14.5); RDW Standard Deviation 53.3 fL (36.4-46.3); Red Blood Count 4.03 M/uL (4.2-5.4); White Blood Count 12.52 K/uL (4.8-10.8)
[2018-03-30 00:22] LABS: Albumin Globulin Ratio 0.8 (0.9-2); Bilirubin,Total 1.2 mg/dl (0.2-1); Globulin 3.9 gm/dl (2.5-4.0); Total Protein 7.2 gm/dl (6.4-8.2); Troponin I 0.017 ng/ml (0-0.045)
[2018-03-30] MEDS ORDERED: MoRPHine SULFATE 4 MG/ML 1 ML CARP\\VIAL IV STA (01:10)
--- NOTE | 2018-03-30 01:10 | Emergency Department Note ---
Entered by Marquez Rodriguez acting as a scribe for Daniel Ruiz DO History of Present Illness General Chief complaint: Fall Stated complaint: FALL, HEMATOMA TO R HIP AND R SIDE OF HEAD Time Seen by Provider: 03/29/18 22:09 Source: patient History of Present Illness Onset (ago): day(s) (today) Location: right (hip) Pain Consistency: + constant Current Pain Intensity: 0 Associated symptoms: + other (Positive for a hematoma on her right hip and on the back of her head as SOB. Negative for LOC, head pain, neck pain, chest pain , back pain, and abdominal pain.) The patient is an 87 year old female who presents to the emergency department with complaints of constant right hip pain following a fall occurring today. Per EMS, the patient was walking in her kitchen tonight around 1800. He states that the patient tripped and landed on her right side but did not lose consciousness. He notes that the patient has a hematoma on her right hip and a hematoma on the right rear head. She rates her pain as a 0/10 when she is not moving. He reports that the patient had an episode where her oxygen saturation dropped to the low 80s. The patient also complains of SOB beginning when she got outside. She denies any head pain, neck pain, chest pain, back pain, and abdominal pain. The patient states that she does not have a history of COPD or asthma. She notes that she is on warfarin for her Afib. Home Medications Home Medications Medication Instructions Recorded Confirmed Type allopurinol 100 mg PO DAILY 03/30/18 03/30/18 History aspirin 81 mg PO DAILY 03/30/18 03/30/18 History calcitriol 0.25 mcg PO DIRECTED 03/30/18 03/30/18 History calcium carbonate-vitamin D3 1 cap PO BID 03/30/18 03/30/18 History [Calcium 600 + D(3)] carvedilol 25 mg PO DAILY 03/30/18 03/30/18 History estrogens-methyltestosterone 1 tab PO 3XWK 03/30/18 03/30/18 History furosemide [Lasix] 40 mg PO DAILY 03/30/18 03/30/18 History isosorbide mononitrate 30 mg PO DAILY 03/30/18 03/30/18 History levothyroxine 100 mcg PO DAILY 03/30/18 03/30/18 History potassium chloride 20 meq PO BID 03/30/18 03/30/18 History simvastatin 20 mg PO HS 03/30/18 03/30/18 History warfarin [Coumadin] 2.5 mg PO 2XWK 03/30/18 03/30/18 History warfarin [Coumadin] 5 mg PO 5XWK 03/30/18 03/30/18 History Allergies Allergy/AdvReac Type Severity Reaction Status Date / Time naproxen AdvReac Intermediate HYPERTENSIO Verified 03/30/18 01:00 N ramipril AdvReac Intermediate DIZZY Verified 03/30/18 01:00 tizanidine AdvReac Intermediate HIP PAIN Verified 03/30/18 01:00 tramadol AdvReac Intermediate "WOOZY" Verified 03/30/18 01:00 Past Med/Surg History Medical History Afib (Chronic) HTN (hypertension) (Chronic) Lumbar disc disease (Chronic) CKD (chronic kidney disease), stage III (Chronic) Acute decompensated heart failure (Acute) Diastolic CHF, chronic (Chronic) Osteoarthritis (Chronic) SOB (shortness of breath) (Acute) UTI (urinary tract infection) Surgical History S/P cholecystectomy (Acute) Family History Other No significant family history Social History Current Living Situation: Family Feels Safe at Home: Yes Review of Systems See HPI for pertinent positives & negatives. and A total of 10 systems reviewed and were otherwise negative Physical Exam Vital Signs Vital Signs - 24 hr 03/29/18 22:24 03/29/18 22:40 03/29/18 22:45 Temperature 36.4 C L Temperature Source Oral Sepsis Recent Fever Within 48 Hours No Sepsis New/Unexplained Change in Mental Status No Sepsis Action Taken by Nursing No Action Required Pulse Rate 106 H 84 Pulse Rate [Right Finger] Respiratory Rate 20 Respiratory Effort / Characteristics Non-Labored Spontaneous Respiratory Depth Normal Blood Pressure 168/91 H Blood Pressure [Right Arm] Blood Pressure Mean 116 Blood Pressure Mean [Right Arm] Pulse Oximetry 94 86 L 95 Oxygen Delivery Method Nasal Cannula Room Air Nasal Cannula Oxygen Flow Rate 2 2 03/30/18 00:05 Temperature Temperature Source Sepsis Recent Fever Within 48 Hours Sepsis New/Unexplained Change in Mental Status Sepsis Action Taken by Nursing Pulse Rate Pulse Rate [Right Finger] 86 Respiratory Rate 18 Respiratory Effort / Characteristics Non-Labored Spontaneous Respiratory Depth Normal Blood Pressure Blood Pressure [Right Arm] 157/91 H Blood Pressure Mean Blood Pressure Mean [Right Arm] 113 Pulse Oximetry 94 Oxygen Delivery Method Nasal Cannula Oxygen Flow Rate 2 GENERAL: alert, well appearing, well nourished, no distress, non-toxic HEAD: normal cephalic, contusion to right posterior occiput. EYE EXAM: normal conjunctiva, PERRL and EOM's grossly intact OROPHARYNX: no exudate, no erythema, lips, buccal mucosa, and tongue normal and mucous membranes are moist EARS: TMs clear b/l NECK: supple, no nuchal rigidity, no adenopathy, non-tender CHEST: stable to compression anteriorly and posteriorly LUNGS: clear to auscultation. Normal chest wall mechanics HEART: no murmurs, S1 normal and S2 normal ABDOMEN: abdomen soft, non-tender, normo-active bowel sounds, no masses, no rebound or guarding. PELVIS: stable to compression anteriorly and posteriorly, pain with palpation of right hip. BACK: Back is symmetrical on inspection and there is no deformity, no midline tenderness, no CVA tenderness. UPPER EXTREMITIES: full active and passive range of motion of all joints without tenderness to palpation LOWER EXTREMITIES: full active and passive range of motion of all joints without tenderness to palpation, small bruise to right knee. NEURO EXAM: Normal sensorium, cranial nerves II-XII grossly intact, normal speech, no gross weakness of arms, no gross weakness of legs. GCS: 15. Course Vital signs were reviewed and showed that the patient was tachycardic, hypertensive, and hypoxic. The patients medical record was reviewed The above diagnostic studies were performed and reviewed. ED treatments and interventions as stated above. 2209: The patient was evaluated in room C1. A complete history and physical examination was performed. 0049: Upon reevaluation, the patient is stable. I discussed my findings with the patient and she understands and agrees with the treatment plan. Based on the patients age, coexisting illnesses, exam and lab findings the decision to treat as an inpatient was made. The patient remained stable while under my care. I discussed the patient's case with Sadiq Márquez. The patient will be evaluated for further management. Consultations Consultation #1: I reviewed the patient's case with Sadiq Márquez. He will evaluate the patient for further management. Time: 00:49 Administered Medications Discontinued Medications Sodium Chloride (Nss) 500 mls @ 999 mls/hr IV .Q31M [facility] Stop: 03/29/18 22:45 Last Infusion: 03/30/18 01:06 Dose: 0 mls/hr Admin: 03/30/18 00:04 Dose: 999 mls/hr Medical Decision Making Differential Diagnosis Differential diagnosis: Etiologies such as fracture, cervical/vertebral injury, dislocation, intra- abdominal process, pneumothorax, intrathoracic trauma, intracranial injury, soft tissue injury, neurologic process, as well as other traumatic pathologies were entertained. Medical Records Attestation: I reviewed the patient's medical records. Home Medications Current Medication List: was personally reviewed by me Laboratory Data Attestation: I reviewed the patient's lab results. Result diagrams: 03/29/18 23:40 03/29/18 23:40 Lab Results 03/29/18 03/29/18 03/29/18 Range/Units 23:40 23:40 23:40 WBC 12.52 H (4.8-10.8) K/uL RBC 4.03 L (4.2-5.4) M/uL Hgb 13.0 (12.0-16.0) g/dL Hct 38.7 (37-47) % MCV 96.0 (80-100) fL MCH 32.3 (25-34) pg MCHC 33.6 (32-36) g/dL RDW Std Deviation 53.3 H (36.4-46.3) fL RDW Coeff of Mateus 15.3 H (11.5-14.5) % Plt Count 83 L (130-400) K/uL MPV 11.1 H (7.4-10.4) fL Immature Gran % (Auto) 0.2 % Neut % (Auto) 84.7 % Lymph % (Auto) 7.4 % Foard % (Auto) 6.8 % Eos % (Auto) 0.7 % Baso % (Auto) 0.2 % Immature Gran # (Auto) 0.03 H (0.00-0.02) K/uL Neut # (Auto) 10.60 H (1.4-6.5) K/uL Lymph # (Auto) 0.93 L (1.2-3.4) K/uL Foard # (Auto) 0.85 H (0.11-0.59) K/uL Eos # (Auto) 0.09 (0-0.5) K/uL Baso # (Auto) 0.02 (0-0.2) K/uL Platelet Estimate Decreased (Normal) RBC Morphology Unremarkable PT 27.5 H (9.0-12.0) Seconds INR 2.9 H (0.9-1.1) Sodium 137 (136-145) mmol/L Potassium 4.0 (3.5-5.1) mmol/L Chloride 101 (98-107) mmol/L Carbon Dioxide 28 (21-32) mmol/L Anion Gap 8.0 (3-11) BUN 33 H (7-18) mg/dl Creatinine 1.43 H (0.6-1.2) mg/dl Est Cr Clr Drug Dosing 30.5 ml/min Est GFR ( Amer) 38.6 Est GFR (Non-Af Amer) 33.3 BUN/Creatinine Ratio 22.8 H (10-20) Glucose 113 H (70-99) mg/dl Calcium 9.1 (8.5-10.1) mg/dl Total Bilirubin 1.2 H (0.2-1) mg/dl AST 33 (15-37) U/L ALT 33 (12-78) U/L Alkaline Phosphatase 62 (45-117) U/L Troponin I 0.017 (0-0.045) ng/ml Total Protein 7.2 (6.4-8.2) gm/dl Albumin 3.3 L (3.4-5.0) gm/dl Globulin 3.9 (2.5-4.0) gm/dl Albumin/Globulin Ratio 0.8 L (0.9-2) Imaging Data Radiologist's Impression: Radiology results as stated below per my review and the radiologist's interpretation: XR femur RT 2V routine CLINICAL HISTORY: r fem pain pain COMPARISON: None. DISCUSSION: Considerable degenerative change right knee and right hip. No evidence for acute bony pathology. No evidence for fracture or dislocation. Soft tissue vascular calcifications. There is no evidence for soft tissue swelling. IMPRESSION: Degenerative change of the right hip and right knee. No acute process of the femur. The above report was generated using voice recognition software. It may contain grammatical, syntax or spelling errors. Electronically signed by: Alen Mar M.D. 03/29/2018 10:55 PM XR pelvis 1-2V routine CLINICAL HISTORY: r hip pain pain COMPARISON: None. DISCUSSION: Prior total left hip arthroplasty. Considerable degenerative change right hip. No well-defined fracture or dislocation. No evidence for acetabular protrusion. There is no evidence for soft tissue swelling. IMPRESSION: 1. Considerable degenerative change right hip. 2. No acute process. 3. Total left hip arthroplasty good position. The above report was generated using voice recognition software. It may contain grammatical, syntax or spelling errors. Electronically signed by: Alen Mar M.D. 03/29/2018 10:46 PM XR chest 1V portable FINDINGS: Moderate cardiomegaly. Lungs are clear. Diaphragms are smooth. IMPRESSION: Chronic change. No acute process. The above report was generated using voice recognition software. It may contain grammatical, syntax or spelling errors. Electronically signed by: Alen Mar M.D. 03/29/2018 10:[address] C SPINE: No acute fracture or traumatic subluxation of the cervical spine. Multilevel degenerative changes of the cervical spine including prominent disc- osteophyte complex at C5-6. Radiologist: Linda Sheehan MD. CT HEAD: No acute intracranial hemorrhage, skull fracture, or other acute intracranial abnormality. Atrophy and chronic small vessel ischemic disease. Focal soft tissue swelling along right lateral scalp. Correlate for soft tissue injury. Radiologist: Linda Sheehan MD. ECG Data Attestation: I personally reviewed and interpreted this ECG as follows: Indication: other (fall) Rate (beats per minute): 108 Rhythm: atrial fibrillation (with RVR) Comparison ECG Date: from (03/31/2017) Change: no significant change Additional Comments: Normal axis, poor baseline, septal Q waves. Nonspecific ST changes in the lateral leads. Blood Pressure Blood Pressure Findings: Elevated blood pressure Blood Pressure Disposition: further management by hospitalist Head Trauma GCS Score: 15 MDM Narrative Patient is an 87-year-old female who presents the ER following a mechanical fall where she fell onto the right side of her body. She complains of head pain , right hip pain and shortness of breath. She was found by EMS to be hypoxic at 85%. She was placed on 2 L nasal cannula. She was transported to the ER. Labs were obtained and showed a mild leukocytosis of 12.5 thousand. INR was therapeutic at 2.9. BMP along with LFTs bilirubin were unremarkable. Troponin was negative. X-rays of the pelvis right femur were unremarkable. CT of the head and cervical spine showed no acute pathology. Patient was updated bedside. She was fairly comfortable. Due to her hypoxia she was admitted to the hospitalist for further workup. She was given a dose of IV morphine secondary to the pain. Impression & Plan Hypoxia, Dyspnea, Fall Discharge Plan Visit Data Chief Complaint: Fall Stated Complaint: FALL, HEMATOMA TO R HIP AND R SIDE OF HEAD ED Provider: Daniel Ruiz Discharge Problem: Hypoxia, Dyspnea, Fall Patient Disposition: Being Evaluated by Hospitalist Forms Stand Alone Forms: My [facility] Prescriptions Prescriptions: No Action aspirin 81 mg Tablet,Delayed Release (Dr/Ec) 81 mg PO DAILY RF: 0 calcitriol 0.25 mcg Capsule 0.25 mcg PO DIRECTED RF: 0 calcium carbonate-vitamin D3 [Calcium 600 + D(3)] 600 mg calcium- 200 unit Capsule 1 cap PO BID RF: 0 carvedilol 25 mg Tablet 25 mg PO DAILY RF: 0 estrogens-methyltestosterone 0.625-1.25 mg Tablet 1 tab PO 3XWK RF: 0 furosemide [Lasix] 40 mg Tablet 40 mg PO DAILY RF: 0 isosorbide mononitrate 30 mg Tablet Extended Release 24 Hr 30 mg PO DAILY RF: 0 levothyroxine 100 mcg Tablet 100 mcg PO DAILY RF: 0 potassium chloride 20 mEq Tablet Extended Release 20 meq PO BID RF: 0 simvastatin 20 mg Tablet 20 mg PO HS RF: 0 allopurinol 100 mg Tablet 100 mg PO DAILY RF: 0 warfarin [Coumadin] 2.5 mg Tablet 2.5 mg PO 2XWK RF: 0 Referrals Referrals: Marika Thomas DO [Primary Care Provider] - The scribe's documentation has been prepared under my direction and personally reviewed by me in its entirety. I confirm that the note above accurately reflects all work, treatment, procedures, and medical decision making performed by me.
[2018-03-30] MEDS ORDERED: CEFDINIR 300 MG CAP PO STA (01:37)
[2018-03-30] MEDS ORDERED: ALUMINUM/MAGNESIUM SUSP 30 ML UDC PO PRN (02:31)
[2018-03-30] MEDS ORDERED: ONDANSETRON INJ 2 MG/ML 2 ML VIAL IV PRN (02:31)
[2018-03-30] MEDS ORDERED: ACETAMINOPHEN 325 MG TAB PO PRN (02:31)
[2018-03-30] MEDS ORDERED: POLYETHYLENE (MIRALAX) 17 GM PACK PO PRN (02:31)
[2018-03-30] MEDS ORDERED: NITROGLYCERIN SL 0.4 MG/TAB TAB SL PRN (02:31)
--- NOTE | 2018-03-30 03:18 | History and Physical Report ---
DATE OF ADMISSION: 03/30/2018 CHIEF COMPLAINT: Fall and found to be hypoxic. HISTORY OF PRESENT ILLNESS: This is an 87-year-old female with past medical history significant for hypothyroidism, GERD, osteoarthritis, hyperlipidemia, irritable bowel syndrome, diastolic CHF, atrial fibrillation, valvular heart disease, gout, hypertension, chronic kidney disease stage IV, recurrent UTI, urinary incontinence, presents with a fall. The patient lives with her son. She ambulates without any help. Today, she slipped on the slippers and fell down and fell on the head and she has a bruise on her right hip. She was able to get up with help and able to ambulate, but because of the fall, she was brought in here into the hospital. In the ER, she was also hypoxic on room air, around 85% saturation on room air, but on 2 liter oxygen was saturating fine. She has history of diastolic CHF and she was checked for home O2 in the last admission and she passed the test.But patient states lately she is getting on and off short of breath at home. Denies any cough, no fever, no chills, no headache, no dizziness, no nausea, no vomiting. Appetite is not that great, does not sleep good. Normal bowel and bladder movements. Currently resting comfortably and hemodynamically stable. Denies any pain currently. ALLERGIES: ALTACE, NAPROXEN, TIZANIDINE, TRAMADOL. PAST MEDICAL HISTORY: As mentioned above. PAST SURGICAL HISTORY: Left total hip replacement. MEDICATIONS: The patient is currently on Omnicef 300 mg p.o. daily for 10 days, levothyroxine 100 mcg p.o. daily, Coreg 25 mg p.o. daily in a.m. and 12.5 mg in p.m., Coumadin 2.5 mg on Mondays and Fridays and 5 mg all other days, allopurinol 200 mg p.o. daily, Lasix 40 mg p.o. daily, Imdur 30 mg p.o. daily, potassium chloride 20 mEq p.o. b.i.d., Zocor 20 mg p.o. at bedtime, calcitriol 0.25 mcg p.o. daily, estrogen 0.625 grams apply topical, aspirin 81 mg p.o. daily, calcium plus D daily. FAMILY HISTORY: No family history on file. Mother had lung cancer. SOCIAL HISTORY: Currently lives with her son. No alcohol, no drug use. REVIEW OF SYMPTOMS: As per HPI. Rest of review of systems negative. PHYSICAL EXAMINATION: GENERAL: The patient is old and frail, not in acute distress. VITAL SIGNS: Temperature 36.4, pulse 86, respiratory rate 18, blood pressure 157/91, oxygen 94% on 2 liters, was 85% on room air. HEENT: No pallor, no icterus. Pupils equal, round, and reactive to light. NECK: No JVD, no neck masses, no carotid bruit. CARDIOVASCULAR: S1, S2 heard, regular rhythm. No murmur, no gallop. RESPIRATORY SYSTEM: Normal AP diameter. No accessory muscle use. No wheezing, no crackles. ABDOMEN: Soft, bowel sounds present. Nontender. No distention. CENTRAL NERVOUS SYSTEM: Cranial nerves II-XII grossly intact. Nonfocal. EXTREMITIES: Mild pedal edema present. Bruising on the right hip region and there is mild tenderness on palpation. LABORATORY DATA: WBC 12.5, hemoglobin 13, hematocrit 38.7, platelets 83. PT 27.5, INR 2.9. Sodium 137, potassium 4, chloride 101, bicarbonate 28, BUN 33, creatinine 1.4, serum glucose 113, calcium 9.1, total bilirubin 1.2, AST 33, ALT 33, alkaline phosphatase 62. Troponin 1 is 0.017. IMAGING DATA: Pelvic x-ray, no acute process seen. CT of the head, unofficial report, no acute process seen. Femur x-ray, no acute process seen. Chest x-ray, no acute process. Cervical spine CT, unofficial report, no acute process. EKG: AFib with a rate of 108, ST depression in anterior leads but poor quality. ASSESSMENT AND PLAN: This is an 87-year-old female who presents with a mechanical fall and also found to be hypoxic. 1. Mechanical fall. No acute fractures on x-rays, but she has bruise on the right hip. Ordered PT, OT and if there is any significant pain, can consider CT scan of the hip. Social service to help with discharge planning. Currently, the patient does not complain of any pain. 2. Hypoxia. Patient was saturating at 85% on room air. The patient has history of diastolic CHF and she gets short of breath at home too. She is to continue the 2 liter oxygen for now, will do 2 step prior to discharge. Chest x-ray is unremarkable. 3. History of recurrent urinary tract infections. Recently, outpatient urine cultures showed E. coli which was resistant to multiple antibiotics, but was sensitive to cefepime and Rocephin. Was started on Omnicef 300 mg p.o. daily for 10 days and if patient continues to be symptomatic, plan to start IV antibiotics for ESBL as per PCP. 4. Hypothyroidism, on levothyroxine. Family doctor following on followup labs for any change in dose of the levothyroxine. 5. Atrial fibrillation, Coreg, rate is under control. Continue Coumadin. INR therapeutic. 6. Diastolic congestive heart failure. Continue her home Lasix and Coreg and Imdur. Currently, seems to be stable. 7. Hypertension. Continue Coreg and Imdur and diuretics. We will follow the blood pressure. 8. Hyperlipidemia. Continue statin. 9. Osteoporosis, continue calcium supplements. 10. Gout, continue allopurinol. 11. CKD stage 4. CR at baseline.Will follow labs. 12. Deep venous thrombosis prophylaxis, on Coumadin. We will follow the PT/INR. 13. Disposition: Admit to tele floor. PT and OT prior to discharge. Social service to help with discharge planning. Code status full MTDD
[2018-03-30] MEDS ORDERED: PNEUMOCOCCAL POLYSACCHARIDES 25 MCG/0.5 ML VIAL/SYR IM ONE (04:30)
[2018-03-30] MEDS ORDERED: PNEUMOCOCCAL ADMINISTRATION CHARGE ONE (04:30)
[2018-03-30 05:27] LABS: Hematocrit (blood only) 36.4 % (37-47); Hemoglobin 11.9 g/dL (12.0-16.0); Mean Corpuscular Hgb Conc 32.7 g/dL (32-36); Mean Corpuscular Volume 96.3 fL (80-100); RDW Coefficient of Variation 15.5 % (11.5-14.5); RDW Standard Deviation 54.5 fL (36.4-46.3); Red Blood Count 3.78 M/uL (4.2-5.4); White Blood Count 12.07 K/uL (4.8-10.8)
[2018-03-30 05:28] LABS: Mean Platelet Volume 11.1 fL (7.4-10.4); Platelet Count 67 K/uL (130-400)
[2018-03-30 05:36] LABS: Prothrombin Time 28.1 Seconds (9.0-12.0)
[2018-03-30 05:50] LABS: Basophils # (auto) 0.03 K/uL (0-0.2); Basophils % (auto) 0.2 %; Eosinophils # (auto) 0.21 K/uL (0-0.5); Eosinophils % (auto) 1.7 %; Immature Granulocytes # (auto) 0.03 K/uL (0.00-0.02); Immature Granulocytes % (auto) 0.2 %; Lymphocytes # (auto) 0.94 K/uL (1.2-3.4); Lymphocytes % (auto) 7.8 %; Monocytes # (auto) 0.86 K/uL (0.11-0.59); Monocytes % (auto) 7.1 %; RBC Morphology Unremarkable
[2018-03-30] MEDS ORDERED: ERTAPENEM CONSULT ACTIVE PRN (06:02)
[2018-03-30 06:04] LABS: BUN Creatinine Ratio 21.2 (10-20); Calcium 8.3 mg/dl (8.5-10.1); Creatinine Clr Calc Pharmacy 28.4 ml/min; Est GFR (African American) 39.3; Est GFR (Non-African American) 33.9; Potassium 3.9 mmol/L (3.5-5.1)
[2018-03-30 06:08] LABS: Troponin I 0.023 ng/ml (0-0.045)
[2018-03-30] MEDS: LEVOTHYROXINE SODIUM 100 MCG TABLET PO SCH (06:08)
[2018-03-30] MEDS: CARVEDILOL 25 MG TAB PO SCH (06:08)
[2018-03-30] MEDS: ERTAPENEM SODIUM 1,000 MG in SODIUM CHLORIDE 0.9% 50 ML IV SCH (06:27)
--- NOTE | 2018-03-30 06:58 | CT Scan Report ---
CT SCAN OF THE BRAIN WITHOUT IV CONTRAST CLINICAL HISTORY: Fall. COMPARISON STUDY: No priors. TECHNIQUE: Unenhanced axial CT scan of the brain is performed from the vertex to the skull base. A do se lowering technique was utilized adhering to the principles of ALARA. CT DOSE: 967.10 mGy.cm FINDINGS: Brain parenchyma: There are age-related involutional changes noting mild subcortical and periventric ular microangiopathic change. There is no hemorrhage, mass effect, or evidence of acute territorial i schemia by CT criteria. Castro-white matter differentiation is preserved. No extra-axial fluid collecti on is seen. Ventricles, sulci, cisterns: Prominent secondary to involutional change. Intracranial vasculature: There is atherosclerotic calcification of the cavernous carotid and vertebr al arteries. Calvarium: The skeletal structures are osteopenic. No depressed calvarial fracture is identified. Soft tissues: There is a small right parietal scalp contusion. Sinuses and mastoids: The visualized paranasal sinuses are clear. The mastoid air cells are well pneu matized. Orbits: The bony orbits are grossly intact. There is a left ocular lens implant. IMPRESSION: There is no hemorrhage, mass effect, or evidence of acute territorial ischemia by CT bibi hale. Electronically signed by: Sourav Jaffe M.D. 03/30/2018 6:57 AM
--- NOTE | 2018-03-30 07:20 | CT Scan Report ---
CERVICAL SPINE CT CT DOSE: HISTORY: Neck pain. fall TECHNIQUE: Multiaxial CT images of the cervical spine were performed and reformatted in the sagittal and coronal plane without the use of contrast. A dose lowering technique was utilized adhering to th e principles of ALARA. COMPARISON: None. FINDINGS: No fractures. No subluxation. Prevertebral soft tissues and the C1-C2 interval are intact. No pneumothorax. Moderate to severe disc space narrowing at C4-C5, C5-C6, and C6-C7. 2 mm of anteroli sthesis of C3 on C4 is likely due to long-standing degenerative change. Evlu-te-ksjblwci facet degene rative changes within the cervical spine. Moderate central canal narrowing at C4-C5, C5-C6, and C6-C7 due to the posterior disc osteophyte complexes. IMPRESSION: No fractures within the cervical spine. Electronically signed by: Corey Ramos M.D. 03/30/2018 7:19 AM
[2018-03-30] MEDS: CALCIUM 600MG + VIT D 400 IU TAB PO SCH ×3 (08:53→19:54)
[2018-03-30] MEDS: CALCITRIOL 0.25 MCG CAPSULE PO SCH ×2 (08:53→10:39)
[2018-03-30] MEDS: ALLOPURINOL 100 MG TAB PO SCH ×2 (08:53→10:39)
[2018-03-30] MEDS: FUROSEMIDE 40 MG TAB PO SCH ×2 (08:53→10:39)
[2018-03-30] MEDS: ASPIRIN 81 MG ECTAB PO SCH ×2 (08:53→10:39)
[2018-03-30] MEDS: ISOSORBIDE MONO EXTENDED REL 30 MG TABCR PO SCH ×2 (08:53→10:39)
[2018-03-30] MEDS: POTASSIUM CHLORIDE 20 MEQ TABCR PO SCH ×3 (08:53→19:55)
[2018-03-30] MEDS ORDERED: CEFDINIR 300 MG CAP PO SCH (09:00)
[2018-03-30] MEDS: CARVEDILOL 12.5 MG TAB PO SCH (15:43)
--- NOTE | 2018-03-30 18:23 | Hospitalist Progress Note ---
Date of Service March 30, 2018 Assessment & Plan (1) Hypoxia: This is an 87-year-old female who presents with a mechanical fall and also found to be hypoxic. Mechanical fall No acute fractures on x-rays, but she has bruise on the right hip. PT/OT evaluations needed while in the hospital nurse have walked with patient with walker but patient reports minimal ambulation at home Hypoxia -Initially on ED evaluation, patient was found to be saturating at 85% on room air -Patient wearing nasal cannula and as per nurse patient saturates around 88 % on room air. When with minimal activity on room air such as getting out of bed with walker, patient's oxygen saturation 82% -It is unclear as to the reasons for patient's hypoxia whether this has been acute or chronic -she does not use oxygen at home -on the admission the chest X ray is clear and there is no evidence for pulmonary congestion -echocardiogram performed on this admission similar to that from 1 year ago; the patient has EF of 40 to 45% with diastolic dysfunction with previously seen hypokinesis/akinesis of base/inferior septum and inferior wall. the previously seen elevated pulmonary artery pressures are not reported in this current echocardiogram -will give additional dose of Lasix in addition to home dose 40 mg daily to see if hypoxia will improve -flu swab is negative -patient does not have wheezing symptoms; but will start scheduled nebulizer treatments to see if hypoxia will improve -patient already anticoagulated on coumadin for atrial fibrillation with INR of 3 on admission. but will send D-Dimer and procalcitonin levels and ultrasound lower extremities to rule out venous thromboembolism or infection Atrial fibrillation rate is under control continue carvedilol home dose coumadin held today because recent INR is 3 Hypertension blood pressure is controlled Continue Coreg and Imdur and diuretics. Hypothyroidism, on levothyroxine CKD stage 3 Creatinine at baseline History of recurrent urinary tract infections. Recently, outpatient urine cultures showed E. coli 03/22/18 which was resistant to multiple antibiotics, but was sensitive to cefepime and Rocephin. Was started on Omnicef 300 mg p.o. daily for 10 days starting on 03/28/18 -admission urinalysis without bacteria and admitting physician elected to start ertapenem -will continue ertapenem for now 3. and if patient continues to be symptomatic, plan to start IV antibiotics for ESBL as per PCP. Continue statin. Osteoporosis, continue calcium supplements. Gout history , continue allopurinol. Deep venous thrombosis prophylaxis, on Coumadin Subjective Patient wearing nasal cannula and as per nurse patient saturates around 88 % on room air. When with minimal activity on room air such as getting out of bed with walker, patient's oxygen saturation 82% Patient is not a good historian and reports some shortness of breath without elaborating on other symptoms. Breathing has not been labored. Patient denies pain. Patient denies palpitations Physical Exam 2 Vital Signs (Past 24 Hours): Last Vital Signs Temp 36.2 C L 03/30/18 15:43 Pulse 65 03/30/18 15:43 Resp 18 03/30/18 15:43 BP 135/83 03/30/18 15:43 Pulse Ox 98 03/30/18 15:43 Constitutional: WD/WN, vitals as above Eyes: PERRL, conjunctivae normal, anicteric sclerae EOM intact bilaterally ENMT: external ear and nose normal, oropharynx normal Neck: trachea midline, no thyromegaly Respiratory: normal respiratory effort, lungs clear to auscultation (on nasal cannula) Cardiovascular: Rate/Rhythm: regular rate (atrial fibrillation) Gastrointestinal (Abdomen): normal bowel sounds, soft, nontender, no hepatosplenomegaly Musculoskeletal: Head/Neck/Chest: normocephalic and head atraumatic Neurologic: PERRL, EOMI, accommodation nl, no face palsy, no dysarthria CN' s II-XI intact bilaterally Psychiatric: A+Ox3, euthymic affect
[2018-03-30] MEDS ORDERED: FUROSEMIDE 40 MG TAB PO ONE (19:15)
[2018-03-30] MEDS: SIMVASTATIN 20 MG TAB PO SCH (19:53)
--- NOTE | 2018-03-30 20:56 | Ultrasound Report ---
VENOUS DOPPLER ULTRASOUND LOWER EXTREMITIES BILATERALLY CLINICAL HISTORY: Leg swelling COMPARISON STUDY: No previous studies for comparison. FINDINGS: Real-time and color flow Doppler imaging were performed. Flow was seen within the femoral, popliteal and calf veins with no intraluminal thrombus demonstrated. The saphenous vein is patent. IMPRESSION: No evidence of lower extremity DVT. Electronically signed by: Sathish Curran M.D. 03/30/2018 8:55 PM
[2018-03-30] MEDS: ALBUTEROL 0.5% NEB SOLN 2.5 MG/0.5 ML VIAL NEB SCH (21:07)
[2018-03-31] MEDS: ALBUTEROL 0.5% NEB SOLN 2.5 MG/0.5 ML VIAL NEB SCH ×4 (02:05→19:10)
[2018-03-31] MEDS: ERTAPENEM SODIUM 1,000 MG in SODIUM CHLORIDE 0.9% 50 ML IV SCH (05:35)
[2018-03-31] MEDS: LEVOTHYROXINE SODIUM 100 MCG TABLET PO SCH (05:36)
[2018-03-31] MEDS: CARVEDILOL 25 MG TAB PO SCH (05:36)
[2018-03-31] MEDS: ALLOPURINOL 100 MG TAB PO SCH (07:43)
[2018-03-31] MEDS: ISOSORBIDE MONO EXTENDED REL 30 MG TABCR PO SCH (07:43)
[2018-03-31] MEDS: CALCITRIOL 0.25 MCG CAPSULE PO SCH (07:43)
[2018-03-31] MEDS: ASPIRIN 81 MG ECTAB PO SCH (07:43)
[2018-03-31] MEDS: CALCIUM 600MG + VIT D 400 IU TAB PO SCH ×2 (07:43→21:02)
[2018-03-31] MEDS: FUROSEMIDE 40 MG TAB PO SCH (07:43)
[2018-03-31 07:49] LABS: Creatinine Clr Calc Pharmacy 30.1 ml/min; Est GFR (African American) 42.1; Est GFR (Non-African American) 36.4
[2018-03-31 07:53] LABS: Prothrombin Time 19.5 Seconds (9.0-12.0)
[2018-03-31] MEDS: POTASSIUM CHLORIDE 20 MEQ TABCR PO SCH ×2 (08:16→21:02)
[2018-03-31] MEDS ORDERED: OPTIRAY 320 125ml IV PRN (08:35)
--- NOTE | 2018-03-31 08:46 | CT Scan Report ---
CT angio chest PE protocol CT DOSE: 253.27 mGy.cm HISTORY: Dyspnea rule out PE/rule out interstitial lung TECHNIQUE: Multiaxial CT images of the chest were performed following the intravenous administration of contrast to evaluate the pulmonary arteries. Maximal intensity projection images were also obtaine d. A dose lowering technique was utilized adhering to the principles of ALARA. COMPARISON STUDY: None. FINDINGS: Moderate atherosclerotic change thoracic aorta. Pulmonary vasculature enhances appropriatel y. There are moderate bilateral pleural effusions. There is slight interstitial prominence throughout both hemithoraces. Mild bibasilar atelectatic changes present. IMPRESSION: No evidence for pulmonary embolus. Bilateral pleural effusions. Slight bilateral interstitial promine nce. The above report was generated using voice recognition software. It may contain grammatical, syntax or spelling errors. Electronically signed by: Alen Mar M.D. 03/31/2018 8:45 AM
[2018-03-31] MEDS ORDERED: SODIUM CHLORIDE 0.65% NA SOLN 45 ML (OCEAN) ONE (12:33)
[2018-03-31] MEDS: FUROSEMIDE 40 MG in SYRINGE 0 ML IV SCH (15:43)
[2018-03-31] MEDS: CARVEDILOL 12.5 MG TAB PO SCH (15:43)
[2018-03-31] MEDS ORDERED: WARFARIN SOD 2.5 MG TAB PO SCH (16:00)
--- NOTE | 2018-03-31 18:26 | Hospitalist Progress Note ---
Date of Service March 31, 2018 Assessment & Plan (1) Hypoxia: This is an 87-year-old female who presents with a mechanical fall and also found to be hypoxic. Mechanical fall No acute fractures on x-rays, but she has bruise on the right hip. PT/OT evaluations needed while in the hospital nurse have walked with patient with walker but patient reports minimal ambulation at home Hypoxia -Initially on ED evaluation, patient was found to be saturating at 85% on room air -Patient wearing nasal cannula and as per nurse patient saturates around 88 % on room air. When with minimal activity on room air such as getting out of bed with walker, patient's oxygen saturation 82% -It is unclear as to the reasons for patient's hypoxia whether this has been acute or chronic -she does not use oxygen at home -flu swab is negative -on the admission the chest X ray is clear and no evidence for pulmonary congestion -echocardiogram performed on this admission similar to that from 1 year ago; the patient has EF of 40 to 45% with diastolic dysfunction with previously seen hypokinesis/akinesis of base/inferior septum and inferior wall. the previously seen elevated pulmonary artery pressures are not reported in this current echocardiogram -however the CTA chest with bilateral pleural effusions -Lasix is being transitioned to IV 40 mg BID -nebulizers prn if shortness of breath Atrial fibrillation rate is under control continue carvedilol INR is 2, give coumadin 5 mg today and resuming regular home dose coumadin starting tomorrow No DVT and no PE found on imaging Hypertension blood pressure is controlled Continue Coreg and Imdur and diuretics. Hypothyroidism, on levothyroxine CKD stage 3 Creatinine at baseline History of recurrent urinary tract infections. Recently, outpatient urine cultures showed E. coli 03/22/18 which was resistant to multiple antibiotics, but was sensitive to cefepime and Rocephin. Was started on Omnicef 300 mg p.o. daily for 10 days starting on 03/28/18 -admission urinalysis without bacteria and admitting physician elected to start ertapenem -will continue ertapenem for now Continue statin. Osteoporosis, continue calcium supplements. Gout history , continue allopurinol. Deep venous thrombosis prophylaxis, on Coumadin Subjective Patient with bilateral pleural effusions on chest CTA Patient with crackles on exam. On nasal cannula Patient denies feeling worsening shortness of breath. Denies chest pain or palpitations. denies abdominal pain Physical Exam 2 Vital Signs (Past 24 Hours): Last Vital Signs Temp 36.6 C 03/31/18 15:03 Pulse 68 03/31/18 15:03 Resp 18 03/31/18 15:03 BP 128/77 03/31/18 15:03 Pulse Ox 96 03/31/18 15:03 Constitutional: WD/WN, vitals as above Eyes: PERRL, conjunctivae normal, anicteric sclerae EOM intact bilaterally ENMT: external ear and nose normal, oropharynx normal Neck: trachea midline, no thyromegaly Respiratory: normal respiratory effort, lungs clear to auscultation Auscultation: + crackles Cardiovascular: Rate/Rhythm: regular rate (atrial fibrillation) Gastrointestinal (Abdomen): normal bowel sounds, soft, nontender, no hepatosplenomegaly Musculoskeletal: Head/Neck/Chest: normocephalic and head atraumatic Neurologic: PERRL, EOMI, accommodation nl, no face palsy, no dysarthria CN' s II-XI intact bilaterally Psychiatric: A+Ox3, euthymic affect
[2018-03-31] MEDS ORDERED: ALBUTEROL 0.5% NEB SOLN 2.5 MG/0.5 ML VIAL NEB PRN (18:31)
[2018-03-31] MEDS ORDERED: WARFARIN SOD 5 MG TAB PO ONE (19:15)
[2018-03-31] MEDS: SIMVASTATIN 20 MG TAB PO SCH (21:02)
--- NOTE | 2018-03-31 21:09 | Pulmonary Consultation ---
Date of Consultation March 31, 2018 Assessment & Plan (1) Hypoxia: Impression: 1. Increased shortness of breath with hypoxia and CAT scan consistent with pulmonary vascular congestion, cardiomegaly and bilateral pleural effusion. This is CHF with exacerbation. 2. No evidence of pneumonia. 3. Hypoxia secondary to above. 4. Chronic kidney disease. Plan: 1. Agree with aggressive diuresis. 2. Discontinue antibiotics. 3. Watch for Coumadin while the patient is at risk for falls. 4. No need for bronchodilators. 5. Cardiology consult. 6. No need for thoracentesis at this point unless the pleural fluid are refractory to diuresis. Thank you, will follow as needed. History of Present Illness Reason for Consultation: Hypoxia Requesting Physician: Dr. Webber Attending Physician: Bakari Taylor MD History of Present Illness Dear Dr. Webber: Thank you for the kind referral Mrs. Garcia to pulmonary service. This is 87- year-old female with history of congestive heart failure, chronic kidney disease , A. fib, presented to the hospital after she fell in her apartment, she lives with her son, the patient did not sustain any injury, but she was found to have hypoxia with O2 sat of 85%. The patient was started on 2 L via nasal cannula and was admitted to the hospital we were consulted for further evaluation. When I interviewed the patient, the patient is poor historian, denies any chest pain, no shortness of breath on ambulation, does not have any orthopnea or paroxysmal nocturnal symptoms, no wheezing, no cough or sputum production, no heartburn, has not been feeling sick lately, she denies any constitutional symptoms, no sick contact. Review of system otherwise was unremarkable. Her family history does not contribute to her current illness. Past medical history noted for diastolic heart failure, A. fib, recent fall, chronic kidney disease, osteoarthritis and recurrent UTI. She is non-smoker lifetime and does not have a secondhand exposure to smoking, no industrial exposure. Allergies Allergy/AdvReac Type Severity Reaction Status Date / Time naproxen AdvReac Intermediate HYPERTENSIO Verified 03/30/18 01:00 N ramipril AdvReac Intermediate DIZZY Verified 03/30/18 01:00 tizanidine AdvReac Intermediate HIP PAIN Verified 03/30/18 01:00 tramadol AdvReac Intermediate "WOOZY" Verified 03/30/18 01:00 Home Medications Home Medications Medication Instructions Recorded Confirmed Type allopurinol 100 mg PO DAILY 03/30/18 03/30/18 History aspirin 81 mg PO DAILY 03/30/18 03/30/18 History calcitriol 0.25 mcg PO DIRECTED 03/30/18 03/30/18 History calcium carbonate-vitamin D3 1 cap PO BID 03/30/18 03/30/18 History [Calcium 600 + D(3)] carvedilol 12.5 mg PO DAILYBD 03/30/18 03/30/18 History carvedilol 25 mg PO DAILYBB 03/30/18 03/30/18 History estrogens-methyltestosterone 1 tab PO 3XWK 03/30/18 03/30/18 History furosemide [Lasix] 40 mg PO DAILY 03/30/18 03/30/18 History isosorbide mononitrate 30 mg PO DAILY 03/30/18 03/30/18 History levothyroxine 100 mcg PO DAILY 03/30/18 03/30/18 History potassium chloride 20 meq PO BID 03/30/18 03/30/18 History simvastatin 20 mg PO HS 03/30/18 03/30/18 History warfarin [Coumadin] 2.5 mg PO 2XWK 03/30/18 03/30/18 History warfarin [Coumadin] 5 mg PO 5XWK 03/30/18 03/30/18 History Patient History Medical History Afib (Chronic) HTN (hypertension) (Chronic) Lumbar disc disease (Chronic) CKD (chronic kidney disease), stage III (Chronic) Acute decompensated heart failure (Acute) Diastolic CHF, chronic (Chronic) Osteoarthritis (Chronic) SOB (shortness of breath) (Acute) UTI (urinary tract infection) Surgical History S/P cholecystectomy (Acute) Family History Other No significant family history Social History Current Living Situation: Family Current Living Situation Comment: nephews Other Information That Helps Us Care for You: No Feels Safe at Home: Yes Safety Concerns: Feels Safe At This Time Smoking Status: Never smoker Hx Alcohol Use: No Hx Substance Use: No Beliefs That Will Affect Care: None Communication Ability: Effective Review of Systems As above. Physical Exam 2 Vital Signs (Past 24 Hours): Last Vital Signs Temp 36.6 C 03/31/18 15:03 Pulse 75 03/31/18 19:13 Resp 16 03/31/18 19:13 BP 128/77 03/31/18 15:03 Pulse Ox 95 03/31/18 19:13 Physical Exam: Vital signs are stable, no fever, S1-S2 regular rate and rhythm , O2 saturation is 95% on 2 L. Abdomen is benign, edema in the periphery noted. Neurologically she is nonfocal. Somewhat confused. Results & Data Laboratory Results Her labs showed INR of 2, her white count slightly elevated, urine with negative sediment, BUN and creatinine are slightly elevated.
[2018-04-01] MEDS: ALBUTEROL 0.5% NEB SOLN 2.5 MG/0.5 ML VIAL NEB SCH (01:56)
[2018-04-01] MEDS ORDERED: ALBUTEROL 0.083% NEBU SOLN 3 ML VIAL NEB PRN (02:09)
[2018-04-01] MEDS: ALBUTEROL 0.083% NEBU SOLN 3 ML VIAL NEB SCH ×4 (04:12→20:15)
[2018-04-01] MEDS: ERTAPENEM SODIUM 1,000 MG in SODIUM CHLORIDE 0.9% 50 ML IV SCH (06:30)
[2018-04-01] MEDS: LEVOTHYROXINE SODIUM 100 MCG TABLET PO SCH (06:31)
[2018-04-01] MEDS: CARVEDILOL 25 MG TAB PO SCH (06:31)
[2018-04-01 06:58] LABS: INR 1.6 (0.9-1.1); Prothrombin Time 15.9 Seconds (9.0-12.0)
[2018-04-01 07:31] LABS: BUN Creatinine Ratio 28.3 (10-20); Calcium 8.9 mg/dl (8.5-10.1); Magnesium 2.1 mg/dl (1.8-2.4); Potassium 3.5 mmol/L (3.5-5.1)
[2018-04-01] MEDS: ASPIRIN 81 MG ECTAB PO SCH (08:04)
[2018-04-01] MEDS: CALCIUM 600MG + VIT D 400 IU TAB PO SCH ×2 (08:04→20:10)
[2018-04-01] MEDS: CALCITRIOL 0.25 MCG CAPSULE PO SCH (08:04)
[2018-04-01] MEDS: POTASSIUM CHLORIDE 20 MEQ TABCR PO SCH ×2 (08:04→20:09)
[2018-04-01] MEDS: ISOSORBIDE MONO EXTENDED REL 30 MG TABCR PO SCH (08:04)
[2018-04-01] MEDS: ALLOPURINOL 100 MG TAB PO SCH (08:04)
[2018-04-01] MEDS: FUROSEMIDE 40 MG in SYRINGE 0 ML IV SCH ×2 (08:28→17:27)
--- NOTE | 2018-04-01 11:25 | Cardiology Consultation ---
Date of Consultation April 01, 2018 Assessment & Plan (1) Hypoxia: (2) Acute decompensated heart failure: Combined systolic and diastolic heart failure. Outpatient echo previously indicated wall motion abnormalities of the inferior myocardium and an estimated left ventricular ejection fraction between 40 and 45%. (3) Afib: The patient is currently anticoagulated as an outpatient however with a history of multiple mechanical falls we need to consider the risks of long-term anticoagulation with this elderly patient. (4) CKD (chronic kidney disease), stage III: (5) Fall: Fall and not a syncopal event (6) Ischemic cardiomyopathy: History of Present Illness Attending Physician: Bakari Taylor MD History of Present Illness The patient is an 87-year-old female who is usually followed by Alen Hoang through our clinic. She does have a history of chronic atrial fibrillation on outpatient anticoagulation, atrial fibrillation, ischemic cardiomyopathy and chronic renal disease. She was admitted after a mechanical fall. She was found to be hypoxic and on a chest CT noted to be in congestive heart failure. She is resting comfortably this morning. She has no cardiac complaints. She denies shortness of breath or dyspnea. No chest pain or heart palpitations. She has had no major sequela from her mechanical fall. PAST MEDICAL HISTORY: 1. Chronic atrial fibrillation 2. Chronic Coumadin anticoagulation 3. History of paroxysmal atrial tachycardia. 4. Chronic diastolic heart failure. 5. Ischemic cardiomyopathy 6. Diastolic dysfunction 7. Mildly reduced left ventricular function with an EF 40-45% 8. Stage 3 chronic kidney disease. 9. Hyperlipidemia. 10. Hypertension. 11. GERD. 12. Hypothyroidism 13. Gout 14. Aortic sclerosis Allergies Allergy/AdvReac Type Severity Reaction Status Date / Time naproxen AdvReac Intermediate HYPERTENSIO Verified 03/30/18 01:00 N ramipril AdvReac Intermediate DIZZY Verified 03/30/18 01:00 tizanidine AdvReac Intermediate HIP PAIN Verified 03/30/18 01:00 tramadol AdvReac Intermediate "WOOZY" Verified 03/30/18 01:00 Home Medications Home Medications Medication Instructions Recorded Confirmed Type allopurinol 100 mg PO DAILY 03/30/18 03/30/18 History aspirin 81 mg PO DAILY 03/30/18 03/30/18 History calcitriol 0.25 mcg PO DIRECTED 03/30/18 03/30/18 History calcium carbonate-vitamin D3 1 cap PO BID 03/30/18 03/30/18 History [Calcium 600 + D(3)] carvedilol 12.5 mg PO DAILYBD 03/30/18 03/30/18 History carvedilol 25 mg PO DAILYBB 03/30/18 03/30/18 History estrogens-methyltestosterone 1 tab PO 3XWK 03/30/18 03/30/18 History furosemide [Lasix] 40 mg PO DAILY 03/30/18 03/30/18 History isosorbide mononitrate 30 mg PO DAILY 03/30/18 03/30/18 History levothyroxine 100 mcg PO DAILY 03/30/18 03/30/18 History potassium chloride 20 meq PO BID 03/30/18 03/30/18 History simvastatin 20 mg PO HS 03/30/18 03/30/18 History warfarin [Coumadin] 2.5 mg PO 2XWK 03/30/18 03/30/18 History warfarin [Coumadin] 5 mg PO 5XWK 03/30/18 03/30/18 History Patient History Medical History Afib (Chronic) HTN (hypertension) (Chronic) Lumbar disc disease (Chronic) CKD (chronic kidney disease), stage III (Chronic) Acute decompensated heart failure (Acute) Diastolic CHF, chronic (Chronic) Osteoarthritis (Chronic) SOB (shortness of breath) (Acute) UTI (urinary tract infection) Surgical History S/P cholecystectomy (Acute) Family History Other No significant family history Social History Current Living Situation: Family Current Living Situation Comment: nephews Other Information That Helps Us Care for You: No Feels Safe at Home: Yes Safety Concerns: Feels Safe At This Time Smoking Status: Never smoker Hx Alcohol Use: No Hx Substance Use: No Beliefs That Will Affect Care: None Communication Ability: Effective Review of Systems Review of Systems: See HPI for pertinent positives. All other 10 point review of systems are negative. Physical Exam 2 Vital Signs (Past 24 Hours): Last Vital Signs Temp 36.8 C 04/01/18 07:26 Pulse 73 01/12/19 08:00 Resp 16 04/01/18 07:26 BP 146/75 H 04/01/18 07:26 Pulse Ox 97 04/01/18 07:26 Physical Exam: General: no acute distress and stated age Head: normocephalic, no masses, lesions, tenderness or abnormalities Eyes: conjunctiva are pink and non-injected, sclera clear Neck: supple, no adenopathy, no bruits, normal jugular venous pulse, no hepatojugular reflux Chest: normal shape and normal respiratory effort Lungs: clear to auscultation and percussion Cardiac Exam: - irregular rate & rhythm, systolic murmur left sternal border- normal S1, normal S2 Pulses: 2(+) throughout Abdomen: abdomen soft, non-tender, no abnormal masses and no hepatosplenomegaly Musculoskeletal: no gait disturbance, no joint inflammation, no deforming arthritis Extremities: no edema and no cyanosis Neuro: grossly normal exam Results & Data Laboratory Results Laboratory Results - last 24 hr 04/01/18 04/01/18 06:18 06:18 PT 15.9 H INR 1.6 H Sodium 139 Potassium 3.5 Chloride 103 Carbon Dioxide 32 Anion Gap 4.0 BUN 42 H Creatinine 1.48 H Est Cr Clr Drug Dosing 27.0 Est GFR ( Amer) 37.0 Est GFR (Non-Af Amer) 32.0 BUN/Creatinine Ratio 28.3 H Glucose 95 Calcium 8.9 Magnesium 2.1 Medications Administered Current Inpatient Medications Acetaminophen (Tylenol) 650 mg PO Q4H PRN PRN Reason: Pain or Fever Stop: 04/29/18 02:30 Albuterol (Ventolin 0.083% 2.5mg/3ml) 2.5 mg NEB Q6R [facility] Stop: 05/01/18 01:59 Last Admin: 04/01/18 07:07 Dose: 2.5 mg Albuterol (Ventolin 0.083% 2.5mg/3ml) 2.5 mg NEB Q6R PRN PRN Reason: shortness of breath or wheezing Stop: 05/01/18 02:08 Allopurinol (Zyloprim) 100 mg PO DAILY [facility] Stop: 04/29/18 08:59 Last Admin: 04/01/18 08:04 Dose: 100 mg Aspirin (Ecotrin Ectab) 81 mg PO DAILY [facility] Stop: 04/29/18 08:59 Last Admin: 04/01/18 08:04 Dose: 81 mg Calcitriol (Racaltrol) 0.25 mcg PO DAILY [facility] Stop: 04/29/18 08:59 Last Admin: 04/01/18 08:04 Dose: 0.25 mcg Carvedilol (Coreg) 25 mg PO DAILYBB [facility] Stop: 04/29/18 06:29 Last Admin: 04/01/18 06:31 Dose: 25 mg Carvedilol (Coreg) 12.5 mg PO DAILYBD [facility] Stop: 04/29/18 15:29 Last Admin: 03/31/18 15:43 Dose: 12.5 mg Ertapenem (Consult) 1 ea N/A DAILY PRN PRN Reason: Consult Stop: 04/29/18 06:01 Ertapenem 1,000 mg/ Sodium (Chloride) 60 mls @ 100 mls/hr IV Q24H [facility]; Protocol Stop: 04/09/18 05:59 Last Infusion: 04/01/18 07:11 Dose: Infused Furosemide 40 mg/ Syringe 4 mls @ 4 mls/min IV [id number] [facility] Stop: 04/30/18 16:59 Last Admin: 04/01/18 08:28 Dose: 4 mls/min Ioversol (Optiray 320 125ml) 119 ml IV ONCE PRN PRN Reason: Interaction Checking Stop: 04/04/18 08:34 Last Admin: 03/31/18 08:36 Dose: 119 ml Isosorbide Mononitrate (Imdur Extended Rel) 30 mg PO DAILY [facility] Stop: 04/29/18 08:59 Last Admin: 04/01/18 08:04 Dose: 30 mg Levothyroxine Sodium (Synthroid) 100 mcg PO DAILYBB [facility] Stop: 04/29/18 06:29 Last Admin: 04/01/18 06:31 Dose: 100 mcg Multivitamins/Minerals (Caltrate Plus) 1 tab PO BID [facility] Stop: 04/29/18 08:59 Last Admin: 04/01/18 08:04 Dose: 1 tab Nitroglycerin (Nitrostat) 0.4 mg SL UD PRN PRN Reason: Chest Pain Stop: 04/29/18 02:30 Ondansetron HCl (Zofran) 4 mg IV Q6H PRN PRN Reason: Nausea Stop: 04/29/18 02:30 Polyethylene Glycol (Miralax Powder Packet) 17 gm PO DAILY PRN PRN Reason: Constipation Stop: 04/29/18 02:30 Potassium Chloride (Klor-Con M20) 20 meq PO BID [facility] Stop: 04/29/18 08:59 Last Admin: 04/01/18 08:04 Dose: 20 meq Simvastatin (Zocor) 20 mg PO HS [facility] Stop: 04/29/18 20:59 Last Admin: 03/31/18 21:02 Dose: 20 mg Warfarin Sodium (Coumadin) 2.5 mg PO [email or web address] [facility] Stop: 04/30/18 15:59 Warfarin Sodium (Coumadin) 5 mg PO [email or web address] [facility] Stop: 04/29/18 15:59 _ (1) Fall Encounter type: initial encounter Qualified Code(s): W19.XXXA - Unspecified fall, initial encounter
[2018-04-01] MEDS: WARFARIN SOD 5 MG TAB PO SCH (15:43)
[2018-04-01] MEDS: CARVEDILOL 12.5 MG TAB PO SCH (15:44)
--- NOTE | 2018-04-01 18:40 | Hospitalist Progress Note ---
Date of Service April 01, 2018 Assessment & Plan (1) Hypoxia: This is an 87-year-old female who presents with a mechanical fall and also found to be hypoxic. Mechanical fall No acute fractures on x-rays, but she has bruise on the right hip. 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 the previously seen elevated pulmonary artery pressures are not reported in this current echocardiogram -however the CTA chest with bilateral pleural effusions -currently the Lasix is being transitioned to IV 40 mg BID -nebulizers prn if shortness of breath -flu swab is negative Atrial fibrillation rate is under control continue carvedilol INR is 1.6 because of recent holding off on coumadin on this admission. was given coumadin 5 mg on 03/31/18 today and resumed regular home dose coumadin No DVT and no PE found on imaging Hypertension blood pressure is controlled Continue Coreg and Imdur and diuretics. Hypothyroidism, on levothyroxine CKD stage 3 Creatinine at baseline History of recurrent urinary tract infections. Recently, outpatient urine cultures showed E. coli 03/22/18 which was resistant to multiple antibiotics, but was sensitive to cefepime and Rocephin. Was started on Omnicef 300 mg p.o. daily for 10 days starting on 03/28/18 -admission urinalysis without bacteria and admitting physician elected to start ertapenem -will continue ertapenem for now, will resend UA Continue statin. Osteoporosis, continue calcium supplements. Gout history , continue allopurinol. Deep venous thrombosis prophylaxis, on Coumadin Disposition: remains inpatient due to hypoxia and trying to improve this with BID IV lasix Subjective On nasal cannula When nurse took patient off of nasal cannula today, her saturation of 84% on room air and nasal cannula resumed Patient denies feeling worsening shortness of breath. Denies chest pain or palpitations. denies abdominal pain Physical Exam 2 Vital Signs (Past 24 Hours): Last Vital Signs Temp 36.7 C 04/01/18 15:10 Pulse 64 04/01/18 15:10 Resp 16 04/01/18 15:10 BP 125/66 04/01/18 15:10 Pulse Ox 93 04/01/18 15:10 Constitutional: WD/WN, vitals as above Eyes: PERRL, conjunctivae normal, anicteric sclerae EOM intact bilaterally ENMT: external ear and nose normal, oropharynx normal Neck: trachea midline, no thyromegaly Respiratory: normal respiratory effort, lungs clear to auscultation Auscultation: + crackles Cardiovascular: Rate/Rhythm: regular rate (atrial fibrillation) Gastrointestinal (Abdomen): normal bowel sounds, soft, nontender, no hepatosplenomegaly Musculoskeletal: Head/Neck/Chest: normocephalic and head atraumatic Neurologic: PERRL, EOMI, accommodation nl, no face palsy, no dysarthria CN' s II-XI intact bilaterally Psychiatric: A+Ox3, euthymic affect
[2018-04-01] MEDS: SIMVASTATIN 20 MG TAB PO SCH (20:10)
[2018-04-01 20:41] LABS: Appearance Urine Clear (Clear); Bilirubin Urine Negative (Negative); Color Urine Yellow; Glucose Urine UA Negative (Negative); Ketones Urine Negative (Negative); Leukocyte Esterase Urine Negative (Negative); Nitrite Urine Negative (Negative); Protein Urine Negative (Negative); Specific Gravity Urine 1.011 (1.000-1.030); Urobilinogen Urine Negative (Negative)
[2018-04-02] MEDS: ALBUTEROL 0.083% NEBU SOLN 3 ML VIAL NEB SCH ×4 (02:21→20:05)
[2018-04-02] MEDS: ERTAPENEM SODIUM 1,000 MG in SODIUM CHLORIDE 0.9% 50 ML IV SCH (05:14)
[2018-04-02] MEDS: LEVOTHYROXINE SODIUM 100 MCG TABLET PO SCH (05:16)
[2018-04-02] MEDS: CARVEDILOL 25 MG TAB PO SCH (05:16)
[2018-04-02 07:55] LABS: Hematocrit (blood only) 32.8 % (37-47); Hemoglobin 10.8 g/dL (12.0-16.0); Mean Corpuscular Hgb Conc 32.9 g/dL (32-36); Mean Corpuscular Volume 96.5 fL (80-100); RDW Coefficient of Variation 15.1 % (11.5-14.5); RDW Standard Deviation 53.3 fL (36.4-46.3); White Blood Count 7.04 K/uL (4.8-10.8)
[2018-04-02 08:03] LABS: INR 1.7 (0.9-1.1); Prothrombin Time 16.9 Seconds (9.0-12.0)
[2018-04-02 08:29] LABS: BUN Creatinine Ratio 28.9 (10-20); Calcium 9.3 mg/dl (8.5-10.1); Creatinine Clr Calc Pharmacy 25.5 ml/min; Est GFR (African American) 34.5; Est GFR (Non-African American) 29.8; Potassium 3.5 mmol/L (3.5-5.1)
[2018-04-02 08:30] LABS: Mean Platelet Volume 11.5 fL (7.4-10.4); Platelet Count 81 K/uL (130-400)
[2018-04-02 08:32] LABS: Basophils # (auto) 0.05 K/uL (0-0.2); Basophils % (auto) 0.7 %; Eosinophils # (auto) 0.35 K/uL (0-0.5); Immature Granulocytes # (auto) 0.02 K/uL (0.00-0.02); Immature Granulocytes % (auto) 0.3 %; Lymphocytes # (auto) 1.05 K/uL (1.2-3.4); Lymphocytes % (auto) 14.9 %; Monocytes # (auto) 0.78 K/uL (0.11-0.59); Monocytes % (auto) 11.1 %; Neutrophils # (auto) 4.79 K/uL (1.4-6.5)
[2018-04-02] MEDS: ISOSORBIDE MONO EXTENDED REL 30 MG TABCR PO SCH (08:58)
[2018-04-02] MEDS: ALLOPURINOL 100 MG TAB PO SCH (08:58)
[2018-04-02] MEDS: CALCITRIOL 0.25 MCG CAPSULE PO SCH (08:58)
[2018-04-02] MEDS: POTASSIUM CHLORIDE 20 MEQ TABCR PO SCH ×2 (08:58→21:12)
[2018-04-02] MEDS: CALCIUM 600MG + VIT D 400 IU TAB PO SCH ×2 (08:59→21:12)
[2018-04-02] MEDS: ASPIRIN 81 MG ECTAB PO SCH (08:59)
[2018-04-02] MEDS: FUROSEMIDE 40 MG in SYRINGE 0 ML IV SCH (08:59)
--- NOTE | 2018-04-02 10:04 | Cardiology Progress Note ---
Date of Service April 02, 2018 Assessment & Plan (1) Acute decompensated heart failure: Combined systolic and diastolic heart failure. Outpatient echo previously indicated wall motion abnormalities of the inferior myocardium and an estimated left ventricular ejection fraction between 40 and 45%. Believe the patient is currently euvolemic and not in congestive heart failure. I will backed down on her diuretics. (2) Afib: The patient is currently anticoagulated as an outpatient however with a history of multiple mechanical falls we need to consider the risks of long-term anticoagulation with this elderly patient. (3) CKD (chronic kidney disease), stage III: (4) Fall: Fall and not a syncopal event (5) Ischemic cardiomyopathy: Subjective The patient is resting comfortably. No new cardiac complaints today. Physical Exam 2 Vital Signs (Past 24 Hours): Last Vital Signs Temp 36.6 C 04/02/18 08:02 Pulse 70 04/02/18 09:38 Resp 18 04/02/18 08:02 BP 145/77 H 04/02/18 08:02 Pulse Ox 93 04/02/18 08:02 Physical Exam: General: no acute distress and stated age Head: normocephalic, no masses, lesions, tenderness or abnormalities Eyes: conjunctiva are pink and non-injected, sclera clear Neck: supple, no adenopathy, no bruits, normal jugular venous pulse, no hepatojugular reflux Chest: normal shape and normal respiratory effort Lungs: clear to auscultation and percussion Cardiac Exam: - irregular rate & rhythm, no murmurs gallops or rubs - normal S1 , normal S2 Pulses: 2(+) throughout Abdomen: abdomen soft, non-tender, no abnormal masses and no hepatosplenomegaly Musculoskeletal: no gait disturbance, no joint inflammation, no deforming arthritis Extremities: no edema and no cyanosis Neuro: grossly normal exam Results & Data Laboratory Results Laboratory Results - last 24 hr 04/01/18 04/02/18 04/02/18 20:00 07:33 07:33 WBC 7.04 RBC 3.40 L Hgb 10.8 L Hct 32.8 L MCV 96.5 MCH 31.8 MCHC 32.9 RDW Std Deviation 53.3 H RDW Coeff of [place] 15.1 H Plt Count 81 L MPV 11.5 H Immature Gran % (Auto) 0.3 Neut % (Auto) 68.0 Lymph % (Auto) 14.9 [place] % (Auto) 11.1 Eos % (Auto) 5.0 Baso % (Auto) 0.7 Immature Gran # (Auto) 0.02 Neut # (Auto) 4.79 Lymph # (Auto) 1.05 L [place] # (Auto) 0.78 H Eos # (Auto) 0.35 Baso # (Auto) 0.05 PT 16.9 H INR 1.7 H Sodium Potassium Chloride Carbon Dioxide Anion Gap BUN Creatinine Est Cr Clr Drug Dosing Est GFR ( Amer) Est GFR (Non-Af Amer) BUN/Creatinine Ratio Glucose Calcium Urine Color Yellow Urine Appearance Clear Urine pH 6.0 Ur Specific [place] 1.011 Urine Protein Negative Urine Glucose (UA) Negative Urine Ketones Negative Urine Blood Negative Urine Nitrite Negative Urine Bilirubin Negative Urine Urobilinogen Negative Ur Leukocyte Esterase Negative 04/02/18 07:33 WBC RBC Hgb Hct MCV MCH MCHC RDW Std Deviation RDW Coeff of [place] Plt Count MPV Immature Gran % (Auto) Neut % (Auto) Lymph % (Auto) [place] % (Auto) Eos % (Auto) Baso % (Auto) Immature Gran # (Auto) Neut # (Auto) Lymph # (Auto) [place] # (Auto) Eos # (Auto) Baso # (Auto) PT INR Sodium 140 Potassium 3.5 Chloride 101 Carbon Dioxide 31 Anion Gap 8.0 BUN 45 H Creatinine 1.57 H Est Cr Clr Drug Dosing 25.5 Est GFR ( Amer) 34.5 Est GFR (Non-Af Amer) 29.8 BUN/Creatinine Ratio 28.9 H Glucose 95 Calcium 9.3 Urine Color Urine Appearance Urine pH Ur Specific [place] Urine Protein Urine Glucose (UA) Urine Ketones Urine Blood Urine Nitrite Urine Bilirubin Urine Urobilinogen Ur Leukocyte Esterase Medications Administered Current Inpatient Medications Acetaminophen (Tylenol) 650 mg PO Q4H PRN PRN Reason: Pain or Fever Stop: 04/29/18 02:30 Albuterol (Ventolin 0.083% 2.5mg/3ml) 2.5 mg NEB Q6R [place] Stop: 05/01/18 01:59 Last Admin: 04/02/18 07:04 Dose: 2.5 mg Albuterol (Ventolin 0.083% 2.5mg/3ml) 2.5 mg NEB Q6R PRN PRN Reason: shortness of breath or wheezing Stop: 05/01/18 02:08 Allopurinol (Zyloprim) 100 mg PO DAILY [facility] Stop: 04/29/18 08:59 Last Admin: 04/02/18 08:58 Dose: 100 mg Aspirin (Ecotrin Ectab) 81 mg PO DAILY [facility] Stop: 04/29/18 08:59 Last Admin: 04/02/18 08:59 Dose: 81 mg Calcitriol (Racaltrol) 0.25 mcg PO DAILY [facility] Stop: 04/29/18 08:59 Last Admin: 04/02/18 08:58 Dose: 0.25 mcg Carvedilol (Coreg) 25 mg PO DAILYBB [facility] Stop: 04/29/18 06:29 Last Admin: 04/02/18 05:16 Dose: 25 mg Carvedilol (Coreg) 12.5 mg PO DAILYBD [facility] Stop: 04/29/18 15:29 Last Admin: 04/01/18 15:44 Dose: 12.5 mg Furosemide (Lasix) 40 mg PO QAM [facility] Stop: 05/03/18 08:59 Ioversol (Optiray 320 125ml) 119 ml IV ONCE PRN PRN Reason: Interaction Checking Stop: 04/04/18 08:34 Last Admin: 03/31/18 08:36 Dose: 119 ml Isosorbide Mononitrate (Imdur Extended Rel) 30 mg PO DAILY [facility] Stop: 04/29/18 08:59 Last Admin: 04/02/18 08:58 Dose: 30 mg Levothyroxine Sodium (Synthroid) 100 mcg PO DAILYBB [facility] Stop: 04/29/18 06:29 Last Admin: 04/02/18 05:16 Dose: 100 mcg Multivitamins/Minerals (Caltrate Plus) 1 tab PO BID [facility] Stop: 04/29/18 08:59 Last Admin: 04/02/18 08:59 Dose: 1 tab Nitroglycerin (Nitrostat) 0.4 mg SL UD PRN PRN Reason: Chest Pain Stop: 04/29/18 02:30 Ondansetron HCl (Zofran) 4 mg IV Q6H PRN PRN Reason: Nausea Stop: 04/29/18 02:30 Polyethylene Glycol (Miralax Powder Packet) 17 gm PO DAILY PRN PRN Reason: Constipation Stop: 04/29/18 02:30 Potassium Chloride (Klor-Con M20) 20 meq PO BID [facility] Stop: 04/29/18 08:59 Last Admin: 04/02/18 08:58 Dose: 20 meq Simvastatin (Zocor) 20 mg PO HS [facility] Stop: 04/29/18 20:59 Last Admin: 04/01/18 20:10 Dose: 20 mg Warfarin Sodium (Coumadin) 2.5 mg PO [email or web address] [facility] Stop: 04/30/18 15:59 Warfarin Sodium (Coumadin) 5 mg PO [email or web address] [facility] Stop: 04/29/18 15:59 Last Admin: 04/01/18 15:43 Dose: 5 mg _ (1) Fall Encounter type: initial encounter Qualified Code(s): W19.XXXA - Unspecified fall, initial encounter
--- NOTE | 2018-04-02 13:34 | Hospitalist Progress Note ---
Date of Service April 02, 2018 Assessment & Plan (1) Hypoxia: This is an 87-year-old female who presents with a mechanical fall and also found to be hypoxic. Mechanical fall No acute fractures on x-rays, but she has bruise on the right hip. 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 the previously seen elevated pulmonary artery pressures are not reported in this current echocardiogram -however the CTA chest 03/31/18 with bilateral pleural effusions -as of 04/01/18 the patient was being increased increase to 40 mg IV BID -by 04/02/18 cardiology service transitioned the patient to oral Lasix 40 mg daily, patient still needing 1 liter/min of nasal cannula at rest, believe that patient is clinically improving and will hope that she can come off the nasal cannula on oral lasix alone, will have CXR repeated for 10 AM on 04/03/18 Atrial fibrillation rate is under control continue carvedilol INR is 1.7 because of recent holding off on coumadin on this admission. was given coumadin 5 mg on 03/31/18 and resumed regular home dose coumadin No DVT and no PE found on imaging Hypertension blood pressure is controlled Continue Coreg and Imdur and diuretics. Hypothyroidism, on levothyroxine CKD stage 3 Creatinine at baseline History of recurrent urinary tract infections. Recently, outpatient urine cultures showed E. coli 03/22/18 which was resistant to multiple antibiotics, but was sensitive to cefepime and Rocephin. Was started on Omnicef 300 mg p.o. daily for planned 10 day course starting on 03/28/18 -admission urinalysis without bacteria and admitting physician elected to start ertapenem on 03/30/18 admission -repeat UA again negative fpr bacteria and ertapenem stopped on 04/02/18 Continue statin. Osteoporosis, continue calcium supplements. Gout history , continue allopurinol. Deep venous thrombosis prophylaxis, on Coumadin Disposition: remains inpatient due to hypoxia and trying to transition Lasix back to home regimen dosing Subjective when at rest on nasal cannula of 1 liter/min the Oxygen saturation is above 90% when off of the 1 liter/min, the oxygen saturation decreases to 87 to 88% Patient denies feeling worsening shortness of breath. Denies chest pain or palpitations. denies abdominal pain Physical Exam 2 Vital Signs (Past 24 Hours): Last Vital Signs Temp 36.3 C L 04/02/18 12:11 Pulse 65 04/02/18 12:11 Resp 16 04/02/18 12:11 BP 148/77 H 04/02/18 12:11 Pulse Ox 94 04/02/18 12:11 Constitutional: WD/WN, vitals as above Eyes: PERRL, conjunctivae normal, anicteric sclerae EOM intact bilaterally ENMT: external ear and nose normal, oropharynx normal Neck: trachea midline, no thyromegaly Respiratory: normal respiratory effort Cardiovascular: Rate/Rhythm: regular rate (atrial fibrillation) Gastrointestinal (Abdomen): normal bowel sounds, soft, nontender, no hepatosplenomegaly Musculoskeletal: Head/Neck/Chest: normocephalic and head atraumatic Neurologic: PERRL, EOMI, accommodation nl, no face palsy, no dysarthria CN' s II-XI intact bilaterally Psychiatric: A+Ox3, euthymic affect
[2018-04-02] MEDS: WARFARIN SOD 5 MG TAB PO SCH (14:57)
[2018-04-02] MEDS: CARVEDILOL 12.5 MG TAB PO SCH (14:58)
[2018-04-02] MEDS: SIMVASTATIN 20 MG TAB PO SCH (21:12)
[2018-04-03] MEDS: ALBUTEROL 0.083% NEBU SOLN 3 ML VIAL NEB SCH ×4 (02:04→19:35)
[2018-04-03] MEDS: LEVOTHYROXINE SODIUM 100 MCG TABLET PO SCH (05:32)
[2018-04-03] MEDS: CARVEDILOL 25 MG TAB PO SCH (05:32)
--- NOTE | 2018-04-03 07:16 | XRay Report ---
XR chest 1V portable CLINICAL HISTORY: follow up lung infiltrates COMPARISON STUDY: 03/29/2018 FINDINGS: The heart remains enlarged. There is mild elevation interstitium unchanged the prior study. There are bilateral pleural effusions. There is no lobar consolidation.[ IMPRESSION: Cardiomegaly and suspected mild pulmonary vascular congestion. Bilateral subpulmonic pleu ral effusions are suspected Electronically signed by: Sathish Curran M.D. 04/03/2018 7:14 AM
[2018-04-03 07:55] LABS: INR 1.9 (0.9-1.1); Prothrombin Time 18.9 Seconds (9.0-12.0)
[2018-04-03] MEDS: CALCITRIOL 0.25 MCG CAPSULE PO SCH (07:55)
[2018-04-03] MEDS: CALCIUM 600MG + VIT D 400 IU TAB PO SCH ×2 (07:55→22:13)
[2018-04-03] MEDS: ASPIRIN 81 MG ECTAB PO SCH (07:55)
[2018-04-03] MEDS: ISOSORBIDE MONO EXTENDED REL 30 MG TABCR PO SCH (07:55)
[2018-04-03] MEDS: FUROSEMIDE 40 MG TAB PO SCH (07:55)
[2018-04-03] MEDS: ALLOPURINOL 100 MG TAB PO SCH (07:56)
[2018-04-03] MEDS: POTASSIUM CHLORIDE 20 MEQ TABCR PO SCH ×2 (09:30→22:13)
--- NOTE | 2018-04-03 10:12 | Cardiology Progress Note ---
Date of Service April 03, 2018 Assessment & Plan (1) Acute decompensated heart failure: (2) Ischemic cardiomyopathy: Patient with mild LV systolic dysfunction, clinically stable. She has been transitioned to oral furosemide, I think she is making good progress toward discharge. Subjective Chief complaint: Follow-up mild volume overload Subjective: Patient feels well. She states that she is much improved. Physical Exam 2 Vital Signs (Past 24 Hours): Last Vital Signs Temp 36.5 C 04/03/18 07:31 Pulse 71 04/03/18 07:31 Resp 20 04/03/18 07:31 BP 144/78 H 04/03/18 07:31 Pulse Ox 90 04/03/18 07:31 Physical Exam: General: no acute distress and stated age Eyes: conjunctiva are pink and non-injected, sclera clear Neck: normal jugular venous pulse, no hepatojugular reflux Chest: normal shape and normal respiratory effort Lungs: clear to auscultation and percussion Cardiac Exam: -Irregular rhythm, rate well controlled, no murmurs, rubs, or gallops, no jugular venous distention Abdomen: abdomen soft, non-tender, no abnormal masses and no hepatosplenomegaly Musculoskeletal: no gait disturbance, no weakness Extremities: no edema and no cyanosis Neuro:awake, coversant, follows commands, no focal motor deficits Psych: appropriate affect and insight. Results & Data Laboratory Results INR 1.9 Creatinine 1.57 on 04/02/18, no new measurement available today 04/03/18
[2018-04-03] MEDS: CARVEDILOL 12.5 MG TAB PO SCH (17:20)
--- NOTE | 2018-04-03 18:52 | Hospitalist Progress Note ---
Date of Service April 03, 2018 Assessment & Plan (1) Hypoxia: This is an 87-year-old female who presents with a mechanical fall and also found to be hypoxic. Mechanical fall No acute fractures on x-rays, but she has bruise on the right hip. 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 the previously seen elevated pulmonary artery pressures are not reported in this current echocardiogram -however the CTA chest 03/31/18 with bilateral pleural effusions -as of 04/01/18 the patient was being increased increase to 40 mg IV BID -by 04/02/18 cardiology service transitioned the patient to oral Lasix 40 mg daily, patient still needing 1 liter/min of nasal cannula at rest, believe that patient is clinically improving and will hope that she can come off the nasal cannula on oral lasix alone -04/03/18 CXR The heart remains enlarged. There is mild elevation interstitium unchanged the prior study. There are bilateral pleural effusions. There is no lobar consolidation -continue the oral lasix for now Atrial fibrillation rate is under control continue carvedilol INR is 1.9 because of recent holding off on coumadin on this admission. was given coumadin 5 mg on 03/31/18 and resumed regular home dose coumadin No DVT and no PE found on imaging Hypertension blood pressure is controlled Continue Coreg and Imdur and diuretics. Hypothyroidism, on levothyroxine CKD stage 3 Creatinine at baseline History of recurrent urinary tract infections. Recently, outpatient urine cultures showed E. coli 03/22/18 which was resistant to multiple antibiotics, but was sensitive to cefepime and Rocephin. Was started on Omnicef 300 mg p.o. daily for planned 10 day course starting on 03/28/18 -admission urinalysis without bacteria and admitting physician elected to start ertapenem on 03/30/18 admission -repeat UA again negative fpr bacteria and ertapenem stopped on 04/02/18 Continue statin. Osteoporosis, continue calcium supplements. Gout history , continue allopurinol. Deep venous thrombosis prophylaxis, on Coumadin Disposition: remains inpatient due to hypoxia and trying to transition Lasix back to home regimen dosing Able to contact patient's nephew Alen at [phone] and he said he will come to hospital tomorrow for family meeting. Subjective seen today while on oxygen and patient desaturated to the high 80s with minimal exertion getting out of bed to commode. continues to be on 1 liter/min oxygen at rest Patient denies chest pain or palpitations. denies abdominal pain Able to contact patient's nephew Alen at [phone] and he said he will come to hospital tomorrow for family meeting. Physical Exam 2 Vital Signs (Past 24 Hours): Last Vital Signs Temp 36.3 C L 04/03/18 15:22 Pulse 75 04/03/18 15:22 Resp 18 04/03/18 15:22 BP 149/80 H 04/03/18 15:22 Pulse Ox 93 04/03/18 15:22 Constitutional: WD/WN, vitals as above Eyes: PERRL, conjunctivae normal, anicteric sclerae EOM intact bilaterally ENMT: external ear and nose normal, oropharynx normal Neck: trachea midline, no thyromegaly Respiratory: normal respiratory effort Cardiovascular: Rate/Rhythm: regular rate (atrial fibrillation) Gastrointestinal (Abdomen): normal bowel sounds, soft, nontender, no hepatosplenomegaly Musculoskeletal: Head/Neck/Chest: normocephalic and head atraumatic Neurologic: PERRL, EOMI, accommodation nl, no face palsy, no dysarthria CN' s II-XI intact bilaterally Psychiatric: A+Ox3, euthymic affect
[2018-04-03] MEDS: SIMVASTATIN 20 MG TAB PO SCH (22:13)
[2018-04-04] MEDS: ALBUTEROL 0.083% NEBU SOLN 3 ML VIAL NEB SCH ×4 (02:01→19:48)
[2018-04-04] MEDS: LEVOTHYROXINE SODIUM 100 MCG TABLET PO SCH (06:17)
[2018-04-04] MEDS: CARVEDILOL 25 MG TAB PO SCH (06:17)
[2018-04-04] MEDS: CALCIUM 600MG + VIT D 400 IU TAB PO SCH ×2 (08:16→20:55)
[2018-04-04] MEDS: CALCITRIOL 0.25 MCG CAPSULE PO SCH (08:17)
[2018-04-04] MEDS: POTASSIUM CHLORIDE 20 MEQ TABCR PO SCH ×2 (08:17→20:55)
[2018-04-04] MEDS: ALLOPURINOL 100 MG TAB PO SCH (08:17)
[2018-04-04] MEDS: ISOSORBIDE MONO EXTENDED REL 30 MG TABCR PO SCH (08:17)
[2018-04-04] MEDS: ASPIRIN 81 MG ECTAB PO SCH (08:17)
[2018-04-04] MEDS: FUROSEMIDE 40 MG TAB PO SCH (08:17)
[2018-04-04] MEDS: WARFARIN SOD 5 MG TAB PO SCH (16:35)
[2018-04-04] MEDS: CARVEDILOL 12.5 MG TAB PO SCH (16:35)
--- NOTE | 2018-04-04 19:45 | Hospitalist Progress Note ---
Date of Service April 04, 2018 Assessment & Plan (1) Hypoxia: This is an 87-year-old female who presents with a mechanical fall and also found to be hypoxic. Mechanical fall No acute fractures on x-rays, but she has bruise on the right hip. 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 the previously seen elevated pulmonary artery pressures are not reported in this current echocardiogram -however the CTA chest 03/31/18 with bilateral pleural effusions -as of 04/01/18 the patient was being increased increase to 40 mg IV BID -by 04/02/18 cardiology service transitioned the patient to oral Lasix 40 mg daily, patient still needing 1 liter/min of nasal cannula at rest, believe that patient is clinically improving and will hope that she can come off the nasal cannula on oral lasix alone -04/03/18 CXR The heart remains enlarged. There is mild elevation interstitium unchanged the prior study. There are bilateral pleural effusions. There is no lobar consolidation -continue the oral lasix Atrial fibrillation rate is under control continue carvedilol No DVT and no PE found on imaging on coumadin Hypertension blood pressure is controlled Continue Coreg and Imdur and diuretics. Hypothyroidism, on levothyroxine CKD stage 3 Creatinine at baseline History of recurrent urinary tract infections. Recently, outpatient urine cultures showed E. coli 03/22/18 which was resistant to multiple antibiotics, but was sensitive to cefepime and Rocephin. Was started on Omnicef 300 mg p.o. daily for planned 10 day course starting on 03/28/18 -admission urinalysis without bacteria and admitting physician elected to start ertapenem on 03/30/18 admission -repeat UA again negative fpr bacteria and ertapenem stopped on 04/02/18 Continue statin. Osteoporosis, continue calcium supplements. Gout history , continue allopurinol. Deep venous thrombosis prophylaxis, on Coumadin patient's nephew Alen at [phone] will try to provide transportation to [facility] on 04/05/18 for placement of patient to physical rehab Subjective Patient seen and examined earlier today with her nephew Alen for family meeting. During the meeting, patient was assessed with her walking and she desaturated to the mid 80s with exertion on room air. also demonstrated problems with mobility on the walker Patient remains saturating well when on 1 to 2 liters of oxygen at rest Patient agreeable to placement for physical rehabilitation Patient denies chest pain or palpitations. denies abdominal pain Physical Exam 2 Vital Signs (Past 24 Hours): Last Vital Signs Temp 36.5 C 04/04/18 18:00 Pulse 76 04/04/18 18:00 Resp 20 04/04/18 18:00 BP 149/83 H 04/04/18 18:00 Pulse Ox 94 04/04/18 18:00 Constitutional: WD/WN, vitals as above Eyes: PERRL, conjunctivae normal, anicteric sclerae EOM intact bilaterally ENMT: external ear and nose normal, oropharynx normal Neck: trachea midline, no thyromegaly Respiratory: normal respiratory effort Auscultation: + diminished lung sounds (on bases of the lungs) Cardiovascular: Rate/Rhythm: regular rate (atrial fibrillation) Gastrointestinal (Abdomen): normal bowel sounds, soft, nontender, no hepatosplenomegaly Musculoskeletal: Head/Neck/Chest: normocephalic and head atraumatic Neurologic: PERRL, EOMI, accommodation nl, no face palsy, no dysarthria CN' s II-XI intact bilaterally Psychiatric: A+Ox3, euthymic affect
[2018-04-04] MEDS: SIMVASTATIN 20 MG TAB PO SCH (20:55)
[2018-04-05] MEDS: ALBUTEROL 0.083% NEBU SOLN 3 ML VIAL NEB SCH ×2 (02:05→07:05)
[2018-04-05] MEDS: CARVEDILOL 25 MG TAB PO SCH (05:33)
[2018-04-05] MEDS: LEVOTHYROXINE SODIUM 100 MCG TABLET PO SCH (05:33)
[2018-04-05 07:39] LABS: Prothrombin Time 19.4 Seconds (9.0-12.0)
[2018-04-05] MEDS: ALLOPURINOL 100 MG TAB PO SCH (08:18)
[2018-04-05] MEDS: ASPIRIN 81 MG ECTAB PO SCH (08:18)
[2018-04-05] MEDS: FUROSEMIDE 40 MG TAB PO SCH (08:18)
[2018-04-05] MEDS: POTASSIUM CHLORIDE 20 MEQ TABCR PO SCH (08:18)
[2018-04-05] MEDS: CALCITRIOL 0.25 MCG CAPSULE PO SCH (08:18)
[2018-04-05] MEDS: CALCIUM 600MG + VIT D 400 IU TAB PO SCH (08:18)
[2018-04-05] MEDS: ISOSORBIDE MONO EXTENDED REL 30 MG TABCR PO SCH (08:18)
--- NOTE | 2018-04-05 09:31 | Hospitalist Progress Note ---
Date of Service April 05, 2018 Assessment & Plan (1) Hypoxia: This is an 87-year-old female who presents with a mechanical fall and also found to be hypoxic. Mechanical fall No acute fractures on x-rays, but she has bruise on the right hip. 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 the previously seen elevated pulmonary artery pressures are not reported in this current echocardiogram -however the CTA chest 03/31/18 with bilateral pleural effusions -as of 04/01/18 the patient was being increased increase to 40 mg IV BID -by 04/02/18 cardiology service transitioned the patient to oral Lasix 40 mg daily, patient still needing 1 liter/min of nasal cannula at rest, believe that patient is clinically improving and will hope that she can come off the nasal cannula on oral lasix alone -04/03/18 CXR The heart remains enlarged. There is mild elevation interstitium unchanged the prior study. There are bilateral pleural effusions. There is no lobar consolidation -continue the oral lasix 04/12/2018 11:20 AM Provider Marika Thomas Department Internal Medicine [facility] to have chest X ray repeated to follow up the pleural effusions Atrial fibrillation rate is under control continue carvedilol No DVT and no PE found on imaging on coumadin 04/07/2018 6:20 PM Provider [facility], [facility] to check the INR level while on coumadin Hypertension blood pressure is controlled Continue Coreg and Imdur and diuretics. Hypothyroidism, on levothyroxine CKD stage 3 Creatinine at baseline History of recurrent urinary tract infections. Recently, outpatient urine cultures showed E. coli 03/22/18 which was resistant to multiple antibiotics, but was sensitive to cefepime and Rocephin. Was started on Omnicef 300 mg p.o. daily for planned 10 day course starting on 03/28/18 possible urinary tract infection (have been treated on this admission) -admission urinalysis without bacteria and admitting physician elected to start ertapenem on 03/30/18 admission -repeat UA again negative for bacteria and ertapenem stopped on 04/02/18 Continue statin. Osteoporosis, continue calcium supplements. Gout history , continue allopurinol. Deep venous thrombosis prophylaxis, on Coumadin patient's nephew Alen at [phone] will provide transportation to [facility] on 04/05/18 for placement of patient to physical rehab Discharge Instructions 04/07/2018 6:20 PM Provider [facility]acy, [facility] to check the INR level while on coumadin 04/12/2018 11:20 AM Provider Marika Thomas DO Department Internal Medicine [facility] to have chest X ray repeated to follow up the pleural effusions 04/20/2018 9:50 AM Provider [facility] Department 05/04/2018 8:00 AM Provider Alen Hoang PA-C Department Cardiology [facility] Standard CHF discharge instructions Call 911 and go to the Emergency Room if: * You have tightness or pain in your chest that does not go away with rest or Nitroglycerin * You are very short of breath even with rest Call your doctor if any of the following symptoms or problems start or get worse: * Shortness of breath or difficulty breathing * Wake up at night short of breath * Chest pain * Cough * Swelling of your hands, fee, or legs * More fatigued or tired with your normal activity * Palpitations - sudden fast heart beats WEIGHT * Weigh yourself every morning after using the bathroom. * Use the same scale. * Wear the same amount of clothing. * Write your weight down on your chart. * Call your doctor if you gain more than 2-3 pounds in 1-2 days. MEDICATIONS * Use this discharge instruction sheet for instructions. * Take your medications at the time your doctor ordered. * Do not skip a dose of your medicines. * If you miss a dose of medicine, take as soon as possible, but DO NOT DOUBLE A DOSE. * Read your medicine information when you get home. * Know all of the side effects of your medicine. * Call your doctor's office if you have any side effects. * Be sure all of your doctors know what medicine and herbs you take (including cold, flu, and herbal medicine). * Pain Medicine: If you do not get relief from your pain, please call your doctor for help. Take the following with you to your follow-up doctor appointments: * Weight Chart * Medication List * List of questions Do not drink excessive alcohol, beer or wine. Discharge Diagnosis Fall, Hypoxia, Acute systolic CHF, Pleural effusions, atrial fibrillation anticoagulated on coumadin, stage 3 chronic kidney disease, possible urinary tract infection (treated) Subjective Patient seen and examined earlier today sitting upright in chair. denies acute shortness of breath. Patient denies chest pain or palpitations. denies abdominal pain Physical Exam 2 Vital Signs (Past 24 Hours): Last Vital Signs Temp 36.4 C L 04/05/18 07:21 Pulse 66 04/05/18 07:21 Resp 16 04/05/18 07:21 BP 113/73 04/05/18 07:21 Pulse Ox 99 04/05/18 07:21 Constitutional: WD/WN, vitals as above Eyes: PERRL, conjunctivae normal, anicteric sclerae EOM intact bilaterally ENMT: external ear and nose normal, oropharynx normal Neck: trachea midline, no thyromegaly Respiratory: normal respiratory effort, lungs clear to auscultation normal respiratory effort Auscultation: lungs clear to auscultation bilaterally Cardiovascular: Rate/Rhythm: regular rate (atrial fibrillation) Gastrointestinal (Abdomen): normal bowel sounds, soft, nontender, no hepatosplenomegaly Musculoskeletal: Head/Neck/Chest: normocephalic and head atraumatic Neurologic: PERRL, EOMI, accommodation nl, no face palsy, no dysarthria CN' s II-XI intact bilaterally Psychiatric: A+Ox3, euthymic affect
--- NOTE | 2018-04-05 09:43 | Discharge Summary ---
Date of Service April 05, 2018 Admission HPI Per Admitting Provider CHIEF COMPLAINT: Fall and found to be hypoxic. HISTORY OF PRESENT ILLNESS: This is an 87-year-old female with past medical history significant for hypothyroidism, GERD, osteoarthritis, hyperlipidemia, irritable bowel syndrome, diastolic CHF, atrial fibrillation, valvular heart disease, gout, hypertension, chronic kidney disease stage IV, recurrent UTI, urinary incontinence, presents with a fall. The patient lives with her son. She ambulates without any help. Today, she slipped on the slippers and fell down and fell on the head and she has a bruise on her right hip. She was able to get up with help and able to ambulate, but because of the fall, she was brought in here into the hospital. In the ER, she was also hypoxic on room air, around 85% saturation on room air, but on 2 liter oxygen was saturating fine. She has history of diastolic CHF and she was checked for home O2 in the last admission and she passed the test.But patient states lately she is getting on and off short of breath at home. Denies any cough, no fever, no chills, no headache, no dizziness, no nausea, no vomiting. Appetite is not that great, does not sleep good. Normal bowel and bladder movements. Currently resting comfortably and hemodynamically stable. Denies any pain currently. ALLERGIES: ALTACE, NAPROXEN, TIZANIDINE, TRAMADOL. PAST MEDICAL HISTORY: As mentioned above. PAST SURGICAL HISTORY: Left total hip replacement. MEDICATIONS: The patient is currently on Omnicef 300 mg p.o. daily for 10 days, levothyroxine 100 mcg p.o. daily, Coreg 25 mg p.o. daily in a.m. and 12.5 mg in p.m., Coumadin 2.5 mg on Mondays and Fridays and 5 mg all other days, allopurinol 200 mg p.o. daily, Lasix 40 mg p.o. daily, Imdur 30 mg p.o. daily, potassium chloride 20 mEq p.o. b.i.d., Zocor 20 mg p.o. at bedtime, calcitriol 0.25 mcg p.o. daily, estrogen 0.625 grams apply topical, aspirin 81 mg p.o. daily, calcium plus D daily. FAMILY HISTORY: No family history on file. Mother had lung cancer. SOCIAL HISTORY: Currently lives with her son. No alcohol, no drug use. REVIEW OF SYMPTOMS: As per HPI. Rest of review of systems negative. Admission Exam Per Admitting Provider PHYSICAL EXAMINATION: GENERAL: The patient is old and frail, not in acute distress. VITAL SIGNS: Temperature 36.4, pulse 86, respiratory rate 18, blood pressure 157/91, oxygen 94% on 2 liters, was 85% on room air. HEENT: No pallor, no icterus. Pupils equal, round, and reactive to light. NECK: No JVD, no neck masses, no carotid bruit. CARDIOVASCULAR: S1, S2 heard, regular rhythm. No murmur, no gallop. RESPIRATORY SYSTEM: Normal AP diameter. No accessory muscle use. No wheezing, no crackles. ABDOMEN: Soft, bowel sounds present. Nontender. No distention. CENTRAL NERVOUS SYSTEM: Cranial nerves II-XII grossly intact. Nonfocal. EXTREMITIES: Mild pedal edema present. Bruising on the right hip region and there is mild tenderness on palpation. Principal Diagnosis Fall, Hypoxia, Acute systolic CHF, Pleural effusions, atrial fibrillation anticoagulated on coumadin, stage 3 chronic kidney disease, possible urinary tract infection (treated) Discharge Exam Constitutional WD/WN, vitals as above Eyes PERRL, conjunctivae normal, anicteric sclerae EOM intact bilaterally ENMT external ear and nose normal, oropharynx normal Neck trachea midline, no thyromegaly Respiratory normal respiratory effort, lungs clear to auscultation Cardiovascular Rate/Rhythm: regular rate (atrial fibrillation) Gastrointestinal (Abdomen) normal bowel sounds, soft, nontender, no hepatosplenomegaly Musculoskeletal Head/Neck/Chest: normocephalic and head atraumatic Neurologic PERRL, EOMI, accommodation nl, no face palsy, no dysarthria CN's II-XI intact bilaterally Psychiatric A+Ox3, euthymic affect Discharge Data Allergies Allergy/AdvReac Type Severity Reaction Status Date / Time naproxen AdvReac Intermediate HYPERTENSIO Verified 03/30/18 01:00 N ramipril AdvReac Intermediate DIZZY Verified 03/30/18 01:00 tizanidine AdvReac Intermediate HIP PAIN Verified 03/30/18 01:00 tramadol AdvReac Intermediate "WOOZY" Verified 03/30/18 01:00 Consultations 03/30/18 00:34 ED Decision to Admit Stat 03/30/18 02:31 Consult Case Management - Discharge Planning Routine 03/31/18 07:37 Consult Pulmonology Routine 04/01/18 07:21 Consult Cardiology Routine Ordered Studies 03/29/18 22:15 CT cervical spine wo con Urgent CT head/brain wo con Urgent 03/30/18 18:30 US venous doppler LE BI Routine 03/31/18 07:31 CT angio chest PE protocol Stat Hospital Course (1) Hypoxia: This is an 87-year-old female who presents with a mechanical fall and also found to be hypoxic. Mechanical fall No acute fractures on x-rays, but she has bruise on the right hip. 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 the previously seen elevated pulmonary artery pressures are not reported in this current echocardiogram -however the CTA chest 03/31/18 with bilateral pleural effusions -as of 04/01/18 the patient was being increased increase to 40 mg IV BID -by 04/02/18 cardiology service transitioned the patient to oral Lasix 40 mg daily, patient still needing 1 liter/min of nasal cannula at rest, believe that patient is clinically improving and will hope that she can come off the nasal cannula on oral lasix alone -04/03/18 CXR The heart remains enlarged. There is mild elevation interstitium unchanged the prior study. There are bilateral pleural effusions. There is no lobar consolidation -continue the oral lasix 04/12/2018 11:20 AM Provider Marika Thomas Department Internal Medicine [facility] to have chest X ray repeated to follow up the pleural effusions Atrial fibrillation rate is under control continue carvedilol No DVT and no PE found on imaging on coumadin 04/07/2018 6:[address] [facility] Department Pharmacy, [facility] to check the INR level while on coumadin Hypertension blood pressure is controlled Continue Coreg and Imdur and diuretics. Hypothyroidism, on levothyroxine CKD stage 3 Creatinine at baseline History of recurrent urinary tract infections. Recently, outpatient urine cultures showed E. coli 03/22/18 which was resistant to multiple antibiotics, but was sensitive to cefepime and Rocephin. Was started on Omnicef 300 mg p.o. daily for planned 10 day course starting on 03/28/18 possible urinary tract infection (have been treated on this admission) -admission urinalysis without bacteria and admitting physician elected to start ertapenem on 03/30/18 admission -repeat UA again negative for bacteria and ertapenem stopped on 04/02/18 Continue statin. Osteoporosis, continue calcium supplements. Gout history , continue allopurinol. Deep venous thrombosis prophylaxis, on Coumadin patient's nephew Alen at [phone] will provide transportation to [facility] on 04/05/18 for placement of patient to physical rehab Discharge Instructions 04/07/2018 6:[address] [facility] Department Pharmacy, [facility] to check the INR level while on coumadin 04/12/2018 11:20 AM Provider Marika Thomas DO Department Internal Medicine [facility] to have chest X ray repeated to follow up the pleural effusions 04/20/2018 9:[address] [facility] Department 05/04/2018 8:00 AM Provider Alen Hoang PA-C Department Cardiology [facility] Standard CHF discharge instructions Call 911 and go to the Emergency Room if: * You have tightness or pain in your chest that does not go away with rest or Nitroglycerin * You are very short of breath even with rest Call your doctor if any of the following symptoms or problems start or get worse: * Shortness of breath or difficulty breathing * Wake up at night short of breath * Chest pain * Cough * Swelling of your hands, fee, or legs * More fatigued or tired with your normal activity * Palpitations - sudden fast heart beats WEIGHT * Weigh yourself every morning after using the bathroom. * Use the same scale. * Wear the same amount of clothing. * Write your weight down on your chart. * Call your doctor if you gain more than 2-3 pounds in 1-2 days. MEDICATIONS * Use this discharge instruction sheet for instructions. * Take your medications at the time your doctor ordered. * Do not skip a dose of your medicines. * If you miss a dose of medicine, take as soon as possible, but DO NOT DOUBLE A DOSE. * Read your medicine information when you get home. * Know all of the side effects of your medicine. * Call your doctor's office if you have any side effects. * Be sure all of your doctors know what medicine and herbs you take (including cold, flu, and herbal medicine). * Pain Medicine: If you do not get relief from your pain, please call your doctor for help. Take the following with you to your follow-up doctor appointments: * Weight Chart * Medication List * List of questions Do not drink excessive alcohol, beer or wine. Discharge Diagnosis Fall, Hypoxia, Acute systolic CHF, Pleural effusions, atrial fibrillation anticoagulated on coumadin, stage 3 chronic kidney disease, possible urinary tract infection (treated) Total Time Total Time Spent Total Time Spent (In Minutes): 40 minutes Total Time Includes: Examination of the Patient, Discharge Planning and Medication Reconciliation Discharge Plan Discharge Items Patient Disposition: Transfer Inpatient Rehab Fac Reason For Visit: FALL,SOB,HYPOXIA Discharge Diagnosis: Fall, Hypoxia, Acute systolic CHF, Pleural effusions, atrial fibrillation anticoagulated on coumadin, stage 3 chronic kidney disease, possible urinary tract infection (treated) Condition: Good Discharge Goals: Improve disease control and Improve function Activity: Resume your previous activity Non-emergency contact: Primary Care Provider Call non-emergency contact if: you have any medication questions Diet: Regular Addtl Provider Instructions: 04/07/2018 6:[address] [facility] Department Pharmacy, [facility] to check the INR level while on coumadin 04/12/2018 11:20 AM Provider Marika Thomas DO Department Internal Medicine [facility] to have chest X ray repeated to follow up the pleural effusions 04/20/2018 9:50 AM Provider [facility] Department 05/04/2018 8:00 AM Provider Alen Hoang PA-C Department Cardiology [facility] Standard CHF discharge instructions Call 911 and go to the Emergency Room if: * You have tightness or pain in your chest that does not go away with rest or Nitroglycerin * You are very short of breath even with rest Call your doctor if any of the following symptoms or problems start or get worse: * Shortness of breath or difficulty breathing * Wake up at night short of breath * Chest pain * Cough * Swelling of your hands, fee, or legs * More fatigued or tired with your normal activity * Palpitations - sudden fast heart beats WEIGHT * Weigh yourself every morning after using the bathroom. * Use the same scale. * Wear the same amount of clothing. * Write your weight down on your chart. * Call your doctor if you gain more than 2-3 pounds in 1-2 days. MEDICATIONS * Use this discharge instruction sheet for instructions. * Take your medications at the time your doctor ordered. * Do not skip a dose of your medicines. * If you miss a dose of medicine, take as soon as possible, but DO NOT DOUBLE A DOSE. * Read your medicine information when you get home. * Know all of the side effects of your medicine. * Call your doctor's office if you have any side effects. * Be sure all of your doctors know what medicine and herbs you take (including cold, flu, and herbal medicine). * Pain Medicine: If you do not get relief from your pain, please call your doctor for help. Take the following with you to your follow-up doctor appointments: * Weight Chart * Medication List * List of questions Do not drink excessive alcohol, beer or wine. Prescriptions: Continue aspirin 81 mg Tablet,Delayed Release (Dr/Ec) 81 mg PO DAILY RF: 0 calcitriol 0.25 mcg Capsule 0.25 mcg PO DIRECTED RF: 0 calcium carbonate-vitamin D3 [Calcium 600 + D(3)] 600 mg calcium- 200 unit Capsule 1 cap PO BID RF: 0 carvedilol 25 mg Tablet 25 mg PO DAILYBB RF: 0 estrogens-methyltestosterone 0.625-1.25 mg Tablet 1 tab PO 3XWK RF: 0 furosemide [Lasix] 40 mg Tablet 40 mg PO DAILY RF: 0 isosorbide mononitrate 30 mg Tablet Extended Release 24 Hr 30 mg PO DAILY RF: 0 levothyroxine 100 mcg Tablet 100 mcg PO DAILY RF: 0 potassium chloride 20 mEq Tablet Extended Release 20 meq PO BID RF: 0 simvastatin 20 mg Tablet 20 mg PO HS RF: 0 allopurinol 100 mg Tablet 100 mg PO DAILY RF: 0 warfarin [Coumadin] 2.5 mg Tablet 2.5 mg PO 2XWK RF: 0 warfarin [Coumadin] 5 mg Tablet 5 mg PO 5XWK RF: 0 carvedilol 12.5 mg Tablet 12.5 mg PO DAILYBD RF: 0 Stand-Alone Forms: [facility] Discharge Orders: Discharge Order (Routine); Ordered 04/05/18 Ordered By: Bakari Taylor Skilled Items Patient informed of condition?: Yes DNR: No Discharge Level of Care: Acute rehab Communicable Disease: No Discharge Prognosis: Stable Admission Data Admit Date/Time: 03/30/18 01:31 Attending Provider: Shmuel Lamb Admit Provider: Gilmar Jimenez Primary Care Provider: Marika Thomas Other Providers: Gilmar Jimenez ; Yusuf Schulte ; Gerald Avitia ; Bakari Taylor Service: Medical
== END 2018-04-05 10:45 | DRG 291 ==
LOC: ED 22:08 → SUATTDRO 03-30 01:31 → 2N 03-30 01:31 → 4W 04-04 22:24